=== PATIENT | female | born 1955 | race Caucasian/White ===

== ENCOUNTER 2016-09-18 17:02 | Inpatient (IN) | payer OTHER, MEDICAID ==
[~2016-09-18] VITALS: Ht 157.5 cm; Wt 59.0 kg
[~2016-09-18 17:02] MED LIST: BREX0.25 PO; BUPR300T55 PO; CAT.1 PO; DIGO125T79 PO; DULO60CA41 PO; GABA-531 PO; KLO.5 PO; LEVE500T13 PO; LEVO150T8 PO; LISI10TA5 PO; METH500T PO; OMEP20CA4 PO; QUET300T2 PO; TEMA30CA5 PO; TRAZ-126 PO; [UNRECOGNIZED DRUG - CODE] PO
[2016-09-18 18:29] VITALS: BP_SYST 143
[2016-09-18 19:12] VITALS: BP_SYST 118
[2016-09-18] MEDS ORDERED: METH-364 PO (19:14)
[2016-09-18] MEDS ORDERED: DULO60CA41 PO (19:14)
[2016-09-18] MEDS ORDERED: BREX0.25 PO (19:14)
[2016-09-18] MEDS ORDERED: QUET200T PO (19:14)
[2016-09-18] MEDS ORDERED: LEVE500T13 (19:14)
[2016-09-18] MEDS ORDERED: [UNRECOGNIZED DRUG - CODE] PO (19:14)
[2016-09-18] MEDS ORDERED: LEVO175T7 PO (19:14)
[2016-09-18] MEDS ORDERED: OMEP10SU PO (19:14)
[2016-09-18] MEDS ORDERED: TRAZ300T11 PO (19:14)
[2016-09-18] MEDS ORDERED: LISI10TA PO (19:14)
[2016-09-18] MEDS ORDERED: KLO1 PO (19:14)
[2016-09-18] MEDS ORDERED: CLON0.1T PO (19:14)
[2016-09-18] MEDS ORDERED: NEU100 PO (19:14)
[2016-09-18] MEDS ORDERED: WELSR100 PO (19:14)
[2016-09-18] MEDS ORDERED: TEMA30CA5 PO (19:14)
[2016-09-18] MEDS ORDERED: DIGO250T4 PO (19:14)
[2016-09-18] MEDS: KCL 20 mEq in 0.45% NS 1000 mL 1,000 ML IV SCH (19:15)
[2016-09-18] MEDS ORDERED: HYD10 PO (19:28)
[2016-09-18] MEDS ORDERED: FLOR.1 GT (19:28)
[2016-09-18] MEDS ORDERED: cloNIDine HCL 0.1 MG TABLET PO PRN (19:45)
[2016-09-18] MEDS ORDERED: MILK OF MAGNESIA 30 ML UDC PO PRN (19:45)
[2016-09-18] MEDS ORDERED: INSULIN REGULAR, HUMAN 100 UNITS/ML, 10 ML VIAL (novoLIN R) SUBCUT PRN (19:45)
[2016-09-18] MEDS ORDERED: ONDANSETRON HCL 4 MG/2 ML VIAL IVP PRN (20:00)
[2016-09-18] MEDS ORDERED: OXYCODONE/ACETAMINOPHEN 5-325 TABLET PO PRN (20:00)
[2016-09-18] MEDS ORDERED: THORAZINE (chlorproMAZINE) 100 MG TAB PO SCH (21:00)
[2016-09-18] MEDS ORDERED: METHOCARBAMOL 750 MG TABLET PO SCH (21:00)
[2016-09-18] MEDS ORDERED: GABAPENTIN 300 MG CAPSULE PO SCH (21:00)
[2016-09-18] MEDS: traZODone HCL 50 MG TABLET (DESYREL) PO SCH (21:00)
[2016-09-18] MEDS ORDERED: HYDROCORTISONE 10 MG TABLET (CORTEF) PO SCH ×2 (21:00)
[2016-09-18] MEDS: clonazePAM 0.5 MG TABLET PO SCH (21:00)
[2016-09-18] MEDS: levETIRAcetam 500 MG TABLET PO SCH (21:28)
[2016-09-18] MEDS: OMEPRAZOLE 20 MG CAPSULE.DR (PriLOSEC) PO SCH (21:29)
[2016-09-18] MEDS: DULoxetine HCL 30 MG CAPSULE.DR (CYMBALTA) PO SCH (21:30)
[2016-09-18] MEDS: QUEtiapine FUMARATE 100 MG TABLET PO SCH (21:31)
[2016-09-18] MEDS: metroNIDAZOLE 500 mg/NS 100 ML IV SCH (22:00)
[2016-09-18] MEDS: TEMAZEPAM 15 MG CAPSULE PO SCH (22:05)
[2016-09-18] MEDS ORDERED: METHOCARBAMOL 500 MG TABLET PO ONE (22:45)
[2016-09-18] MEDS ORDERED: THORAZINE (chlorproMAZINE) 100 MG TAB PO ONE (22:45)
[2016-09-19] VITALS: BP_SYST 106
[2016-09-19] MEDS: metroNIDAZOLE 500 mg/NS 100 ML IV SCH ×3 (06:00→21:45)
[2016-09-19] MEDS: LEVOTHYROXINE SODIUM 0.15 MG TABLET PO SCH (06:06)
[2016-09-19 06:12] VITALS: BP_SYST 115
[2016-09-19 08:14] VITALS: BP_SYST 158
[2016-09-19 08:18] LABS: BASOPHILS # (AUTO) 0.1 K/uL (0.0-0.2); BASOPHILS % (AUTO) 1.5 % (0.0-2.0); EOSINOPHILS # (AUTO) 0.2 K/uL (0.0-0.4); EOSINOPHILS % (AUTO) 2.1 % (0.0-4.0); HEMATOCRIT 31.7 % (36-48); HEMOGLOBIN 10.2 g/dL (12.0-16.0); LYMPHOCYTES # (AUTO) 1.8 K/uL (1.0-5.5); LYMPHOCYTES % (AUTO) 19.8 % (20.5-51.5); MEAN CORPUSCULAR HEMOGLOBIN 26 pg (27-31); MEAN CORPUSCULAR HGB CONC 32 % (32-36); MEAN CORPUSCULAR VOLUME 80 fL (79.0-98.0); MONOCYTES # (AUTO) 0.5 K/uL (0.0-1.0); MONOCYTES % (AUTO) 5.3 % (1.7-9.3); NEUTROPHILS # (AUTO) 6.4 K/uL (1.8-7.7); NEUTROPHILS % (AUTO) 71.3 % (40.0-70.0); PLATELET COUNT (AUTO) 192 K/uL (130-430); RED BLOOD CELL COUNT(AUTO) 3.98 MIL/uL (4.2-6.2); RED CELL DISTRIBUTION WIDTH 16.4 % (9.0-15.0)
[2016-09-19] MEDS: KCL 20 mEq in 0.45% NS 1000 mL 1,000 ML IV SCH ×2 (08:35→21:45)
[2016-09-19 08:36] LABS: PROTHROMBIN TIME 10.8 SECS (9.5-12.5)
[2016-09-19 08:40] LABS: ALBUMIN 2.4 g/dL (3.4-4.8); CALCIUM 8.6 mg/dL (8.4-11.0); CREATININE 0.63 mg/dL (0.55-1.30); POTASSIUM 3.3 mmol/L (3.5-5.1); TOTAL BILIRUBIN 0.3 mg/dL (0.0-1.0); TOTAL PROTEIN, SERUM 5.5 g/dL (6.4-8.3)
[2016-09-19] MEDS: OMEPRAZOLE 20 MG CAPSULE.DR (PriLOSEC) PO SCH ×2 (08:47→21:38)
[2016-09-19] MEDS: levETIRAcetam 500 MG TABLET PO SCH ×2 (08:47→21:38)
[2016-09-19] MEDS: DULoxetine HCL 30 MG CAPSULE.DR (CYMBALTA) PO SCH ×2 (08:48→21:39)
[2016-09-19] MEDS: clonazePAM 0.5 MG TABLET PO SCH ×3 (08:48→21:00)
[2016-09-19] MEDS: METHOCARBAMOL 500 MG TABLET PO SCH ×2 (08:49→21:00)
[2016-09-19] MEDS: buPROPion HCL 150 MG XL TAB PO SCH (08:50)
[2016-09-19] MEDS: LISINOPRIL 10 MG TABLET (PRINIVIL) PO SCH (08:50)
[2016-09-19] MEDS: DIGOXIN 0.125 MG TABLET PO SCH (08:51)
[2016-09-19] MEDS: GABAPENTIN 100 MG CAPSULE PO SCH ×3 (09:44→21:38)
[2016-09-19] MEDS ORDERED: HYDROCORTISONE 10 MG TABLET (CORTEF) PO SCH (10:00)
[2016-09-19 12:00] VITALS: BP_SYST 123
[2016-09-19 13:00] VITALS: BP_SYST 121
[2016-09-19 19:10] VITALS: BP_SYST 119
[2016-09-19] MEDS ORDERED: MENTHOL/ZINC OXIDE 113 GM OINT. TP PRN (19:15)
[2016-09-19 20:52] LABS: INR 0.9 (0.8-1.2); PROTHROMBIN TIME 10.3 SECS (9.5-12.5)
[2016-09-19] MEDS: MENTHOL/ZINC OXIDE 113 GM OINT. TP SCH (21:00)
[2016-09-19] MEDS: traZODone HCL 50 MG TABLET (DESYREL) PO SCH (21:00)
[2016-09-19] MEDS: THORAZINE (chlorproMAZINE) 25 MG TAB PO SCH (21:37)
[2016-09-19] MEDS: QUEtiapine FUMARATE 100 MG TABLET PO SCH (21:38)
[2016-09-19] MEDS: TEMAZEPAM 15 MG CAPSULE PO SCH (21:40)
[2016-09-20 00:26] VITALS: BP_SYST 140
[2016-09-20] MEDS: metroNIDAZOLE 500 mg/NS 100 ML IV SCH ×3 (06:00→21:15)
[2016-09-20] MEDS: LEVOTHYROXINE SODIUM 0.15 MG TABLET PO SCH (06:08)
[2016-09-20 07:48] LABS: BASOPHILS % (AUTO) 0.3 % (0.0-2.0); EOSINOPHILS # (AUTO) 0.2 K/uL (0.0-0.4); HEMOGLOBIN 9.6 g/dL (12.0-16.0); LYMPHOCYTES # (AUTO) 1.8 K/uL (1.0-5.5); LYMPHOCYTES % (AUTO) 20.8 % (20.5-51.5); MEAN CORPUSCULAR HEMOGLOBIN 25 pg (27-31); MEAN CORPUSCULAR HGB CONC 31 % (32-36); MEAN CORPUSCULAR VOLUME 80 fL (79.0-98.0); MONOCYTES # (AUTO) 0.4 K/uL (0.0-1.0); MONOCYTES % (AUTO) 4.8 % (1.7-9.3); NEUTROPHILS # (AUTO) 6.3 K/uL (1.8-7.7); NEUTROPHILS % (AUTO) 72.1 % (40.0-70.0); PLATELET COUNT (AUTO) 220 K/uL (130-430); RED BLOOD CELL COUNT(AUTO) 3.85 MIL/uL (4.2-6.2); RED CELL DISTRIBUTION WIDTH 16.8 % (9.0-15.0); WHITE BLOOD COUNT (AUTO) 8.7 K/uL (4.8-10.8)
[2016-09-20 07:56] LABS: CALCIUM 8.4 mg/dL (8.4-11.0); CREATININE 0.69 mg/dL (0.55-1.30); POTASSIUM 3.5 mmol/L (3.5-5.1)
[2016-09-20 08:02] VITALS: BP_SYST 122
[2016-09-20] MEDS: DULoxetine HCL 30 MG CAPSULE.DR (CYMBALTA) PO SCH ×2 (08:33→21:16)
[2016-09-20] MEDS: levETIRAcetam 500 MG TABLET PO SCH ×2 (08:33→21:15)
[2016-09-20] MEDS: GABAPENTIN 100 MG CAPSULE PO SCH ×3 (08:33→21:16)
[2016-09-20] MEDS: LISINOPRIL 10 MG TABLET (PRINIVIL) PO SCH (08:34)
[2016-09-20] MEDS: OMEPRAZOLE 20 MG CAPSULE.DR (PriLOSEC) PO SCH ×2 (08:34→21:17)
[2016-09-20] MEDS: METHOCARBAMOL 500 MG TABLET PO SCH ×2 (08:35→21:17)
[2016-09-20] MEDS: buPROPion HCL 150 MG XL TAB PO SCH (08:35)
[2016-09-20] MEDS: clonazePAM 0.5 MG TABLET PO SCH ×3 (08:35→21:16)
[2016-09-20] MEDS: DIGOXIN 0.125 MG TABLET PO SCH (08:36)
[2016-09-20] MEDS: MENTHOL/ZINC OXIDE 113 GM OINT. TP SCH ×4 (09:00→21:19)
[2016-09-20 11:27] VITALS: BP_SYST 102
[2016-09-20] MEDS: KCL 20 mEq in 0.45% NS 1000 mL 1,000 ML IV SCH (15:31)
[2016-09-20 16:01] VITALS: BP_SYST 123
[2016-09-20 20:00] VITALS: BP_SYST 119
[2016-09-20] MEDS: traZODone HCL 50 MG TABLET (DESYREL) PO SCH (21:16)
[2016-09-20] MEDS: THORAZINE (chlorproMAZINE) 25 MG TAB PO SCH (21:16)
[2016-09-20] MEDS: TEMAZEPAM 15 MG CAPSULE PO SCH (21:17)
[2016-09-20] MEDS: QUEtiapine FUMARATE 100 MG TABLET PO SCH (21:17)
[2016-09-20 23:42] VITALS: BP_SYST 94
[2016-09-21 03:41] VITALS: BP_SYST 121
[2016-09-21] MEDS: metroNIDAZOLE 500 mg/NS 100 ML IV SCH ×2 (05:58→16:49)
[2016-09-21] MEDS: LEVOTHYROXINE SODIUM 0.15 MG TABLET PO SCH (06:06)
[2016-09-21] MEDS: MENTHOL/ZINC OXIDE 113 GM OINT. TP SCH ×3 (09:00→17:52)
[2016-09-21] MEDS: buPROPion HCL 150 MG XL TAB PO SCH (09:00)
[2016-09-21] MEDS: levETIRAcetam 500 MG TABLET PO SCH (10:30)
[2016-09-21] MEDS: clonazePAM 0.5 MG TABLET PO SCH ×2 (10:30→16:49)
[2016-09-21] MEDS: DIGOXIN 0.125 MG TABLET PO SCH (10:31)
[2016-09-21] MEDS: DULoxetine HCL 30 MG CAPSULE.DR (CYMBALTA) PO SCH (10:31)
[2016-09-21] MEDS: OMEPRAZOLE 20 MG CAPSULE.DR (PriLOSEC) PO SCH (10:32)
[2016-09-21] MEDS: LISINOPRIL 10 MG TABLET (PRINIVIL) PO SCH (10:33)
[2016-09-21] MEDS: METHOCARBAMOL 500 MG TABLET PO SCH (10:41)
[2016-09-21] MEDS: GABAPENTIN 100 MG CAPSULE PO SCH ×2 (10:41→16:50)
[2016-09-21] MEDS: KCL 20 mEq in 0.45% NS 1000 mL 1,000 ML IV SCH ×2 (10:42→13:55)
[2016-09-21 12:26] VITALS: BP_SYST 94
[2016-09-21 16:47] VITALS: BP_SYST 118
[2016-09-21 19:30] VITALS: BP_SYST 108
[2016-09-21 20:57] VITALS: BP_SYST 108
[2016-09-22] MEDS ORDERED: BALSAM PERU/CASTOR OIL 60 GM OINT...G. TP SCH (09:00)
== END 2016-09-21 22:20 | DRG 391 ==
LOC: SMU 17:02
PROVIDERS: ADMIT Family Medicine; ATTEND Family Medicine
PROC: 02HV33Z Insertion of Infusion Device into Superior Vena Cava, Percutaneous Approach (ICD-10-PCS; principal; 2016-09-20)
PROC: B548ZZA Ultrasonography of Superior Vena Cava, Guidance (ICD-10-PCS; 2016-09-20)
DX: K52.9 Noninfective gastroenteritis and colitis, unspecified (principal); E43 Unspecified severe protein-calorie malnutrition; E27.1 Primary adrenocortical insufficiency; I10 Essential (primary) hypertension; E11.9 Type 2 diabetes mellitus without complications; D64.9 Anemia, unspecified; E03.9 Hypothyroidism, unspecified; R32 Unspecified urinary incontinence; Z96.653 Presence of artificial knee joint, bilateral; F17.200 Nicotine dependence, unspecified, uncomplicated; Z98.84 Bariatric surgery status; Z90.13 Acquired absence of bilateral breasts and nipples; Z88.0 Allergy status to penicillin; Z88.2 Allergy status to sulfonamides; Z88.8 Allergy status to other drugs, medicaments and biological substances
CPT/HCPCS: 36415; 71010; 76700-TC; 80048; 80053; 82962; 85025; 85610-TC; 85730-TC; 87081; C1751; C1769; J1815; J2405; J3480; J3490; Q0161

== ENCOUNTER 2017-02-21 12:03 | Inpatient (IN) | payer OTHER, MEDICAID ==
[~2017-02-21] VITALS: Ht 160 cm; Wt 53.5 kg
[~2017-02-21 12:03] MED LIST changes: -BREX0.25 PO; +GABA-529 PO; -GABA-531 PO; +HYD10 PO
--- NOTE | 2017-02-21 13:20 | NUR ---
ADMISSION: The patient, SAY GIRON, 61 y/o, F admitted by CANDIS SURESH MD, was given written information regarding hospital policies, unit procedures and contact persons. Valuables were checked and Belongings List documented. Call light within reach.
--- NOTE | 2017-02-21 13:21 | NUR ---
PT REFUSES PADDING ON SIDE RAILS FOR SEIZURE PRECAUTIONS STATES PADDED SIDE RAILS MAKE HER FEEL CLAUSTERPHOBIC AND SHE HAS NOT HAD A SEIZURE IN A LONG TIME. PROVIDED PT EDUCATION REGARDING SEIZURE PRECAUTIONS AND SAFETY MEASURES, BUT PT EXPRESSED DESIRE TO HAVE PADS REMOVED\.
[2017-02-21 13:54] VITALS: BP_SYST 136
--- NOTE | 2017-02-21 14:06 | NUR ---
Dr. Chapman Paged For admit orders. Pt is lethargic and having a difficult time staying awake. VS are stable, BG is 91, patient does not currently have her list of home medications, but states she will have it tomorrow. Addendum: 02/21/17 at 1413 by Lizeth Marshall RN s/w Dr. Chapman and admission orders received. Per Dr. Chapman, call his office to have them fax list of patients medications to us, . If unable to start IV, order Midline or PICC line.
[2017-02-21] MEDS ORDERED: KCL 20 mEq in D5/0.45NS 1000mL 1,000 ML IV SCH (14:30)
[2017-02-21 15:01] LABS: BASOPHILS # (AUTO) 0.1 K/uL (0.0-0.2); BASOPHILS % (AUTO) 1.4 % (0.0-2.0); EOSINOPHILS # (AUTO) 0.1 K/uL (0.0-0.4); EOSINOPHILS % (AUTO) 1.6 % (0.0-4.0); HEMATOCRIT 32.6 % (36-48); HEMOGLOBIN 10.1 g/dL (12.0-16.0); LYMPHOCYTES # (AUTO) 1.7 K/uL (1.0-5.5); LYMPHOCYTES % (AUTO) 18.6 % (20.5-51.5); MEAN CORPUSCULAR HEMOGLOBIN 23 pg (27-31); MEAN CORPUSCULAR HGB CONC 31 % (32-36); MEAN CORPUSCULAR VOLUME 74 fL (79.0-98.0); MONOCYTES # (AUTO) 0.7 K/uL (0.0-1.0); MONOCYTES % (AUTO) 7.9 % (1.7-9.3); NEUTROPHILS # (AUTO) 6.6 K/uL (1.8-7.7); NEUTROPHILS % (AUTO) 70.5 % (40.0-70.0); PLATELET COUNT (AUTO) 149 K/uL (130-430); RED CELL DISTRIBUTION WIDTH 18.3 % (9.0-15.0); WHITE BLOOD COUNT (AUTO) 9.2 K/uL (4.8-10.8)
[2017-02-21 15:32] LABS: CALCIUM 9.3 mg/dL (8.4-11.0); CREATININE 0.63 mg/dL (0.55-1.30); POTASSIUM 4.1 mmol/L (3.5-5.1)
[2017-02-21 15:38] LABS: PROTHROMBIN TIME 10.4 SECS (9.5-12.5)
--- NOTE | 2017-02-21 15:40 | NUR ---
ROUNDS / PICC Line consent signed Pt resting in bed w/ no signs of distress noted. PICC Line Consent signed and Quality Eng notified of order for PICC Line. Safety measures in place, will continue to monitor pt.
[2017-02-21 17:10] VITALS: BP_SYST 124
[2017-02-21] MEDS ORDERED: ONDA4TAB5 PO (17:11)
[2017-02-21] MEDS ORDERED: ASCO500T20 PO (17:11)
[2017-02-21] MEDS ORDERED: MULT PO (17:11)
[2017-02-21] MEDS ORDERED: DOCU250C71 PO (17:11)
[2017-02-21] MEDS ORDERED: OXYC-130 PO (17:11)
[2017-02-21] MEDS ORDERED: HYDR20TA PO (17:11)
--- NOTE | 2017-02-21 18:00 | NUR ---
Closing Note Pt resting in bed w/ eyes closed, appears to be sleeping. No concerns noted, safety measures in place and call light w/ pt. S/W Dr. Chapman over the phone to let him know patient's home medication list has been updated and to inquire about BG Accuchecks, and he stated that he will reconcile and place orders for BG checks when he comes in the evening. Town Administrator noted PICC line nurse was called and should come this evening.
[2017-02-21 18:15] LABS: BILIRUBIN,URINE NEGATIVE (NEGATIVE); BLOOD, URINE NEGATIVE (NEGATIVE); CLARITY/URINE CLOUDY (CLEAR); COLOR,URINE YELLOW (YELLOW); GLUCOSE,URINE NEGATIVE (NEGATIVE); KETONES,URINE NEGATIVE (NEGATIVE); LEUKOCYTE ESTERASE ,URINE NEGATIVE (NEGATIVE); NITRITE, URINE NEGATIVE (NEGATIVE); PH,URINE 7.5 (5.0-8.0); PROTEIN URINE NEGATIVE (NEGATIVE)
[2017-02-21 18:24] LABS: BACTERIA,URINE None Seen /HPF (None Seen); RBC,URINE 0-3 /HPF (0-3); WBC,URINE 0-3 /HPF (0-3)
[2017-02-21 18:25] LABS: URINE AMORPHOUS PHOSPHATES 3+ /HPF (None Seen)
[2017-02-21] MEDS ORDERED: cloNIDine HCL 0.1 MG TABLET PO PRN (19:45)
[2017-02-21] MEDS ORDERED: INSULIN REGULAR, HUMAN 100 UNITS/ML, 10 ML VIAL (novoLIN R) SUBCUT PRN (20:00)
[2017-02-21] MEDS ORDERED: DULoxetine HCL 30 MG CAPSULE.DR (CYMBALTA) PO SCH (21:00)
[2017-02-21] MEDS ORDERED: VANCOMYCIN HCL 1,000 MG in NS 250 ML IV SCH (21:00)
[2017-02-21] MEDS: HYDROCORTISONE 10 MG TABLET (CORTEF) PO SCH (22:13)
[2017-02-21] MEDS: QUEtiapine FUMARATE 100 MG TABLET PO SCH (22:14)
[2017-02-21] MEDS: levETIRAcetam 500 MG TABLET PO SCH (22:16)
[2017-02-21] MEDS: traZODone HCL 50 MG TABLET (DESYREL) PO SCH (22:16)
[2017-02-21] MEDS: DOCUSATE SODIUM 100 MG CAPSULE PO SCH (22:17)
[2017-02-21] MEDS: TEMAZEPAM 15 MG CAPSULE PO SCH (22:17)
[2017-02-21] MEDS: MEGESTROL ACETATE 400 MG/10 ML UDC PO SCH (22:18)
[2017-02-21] MEDS: clonazePAM 0.5 MG TABLET PO SCH (22:18)
--- NOTE | 2017-02-21 23:24 | NUR ---
PICC line nurse unable to insert PICC. pt refused peripheral line insertion. dr. Rodriguezium aware and ordered to re-order PICC line insertion in AM, informed maid housekeeper.
[2017-02-22 00:52] VITALS: BP_SYST 137
[2017-02-22] MEDS: LEVOTHYROXINE SODIUM 0.15 MG TABLET PO SCH (06:23)
[2017-02-22 07:20] LABS: BASOPHILS % (AUTO) 0.6 % (0.0-2.0); EOSINOPHILS % (AUTO) 0.5 % (0.0-4.0); HEMATOCRIT 35.5 % (36-48); HEMOGLOBIN 10.9 g/dL (12.0-16.0); LYMPHOCYTES % (AUTO) 17.2 % (20.5-51.5); MEAN CORPUSCULAR HEMOGLOBIN 23 pg (27-31); MEAN CORPUSCULAR HGB CONC 31 % (32-36); MEAN CORPUSCULAR VOLUME 74 fL (79.0-98.0); MONOCYTES # (AUTO) 0.2 K/uL (0.0-1.0); MONOCYTES % (AUTO) 3.2 % (1.7-9.3); NEUTROPHILS # (AUTO) 4.9 K/uL (1.8-7.7); NEUTROPHILS % (AUTO) 78.5 % (40.0-70.0); PLATELET COUNT (AUTO) 185 K/uL (130-430); RED CELL DISTRIBUTION WIDTH 19.6 % (9.0-15.0); WHITE BLOOD COUNT (AUTO) 6.1 K/uL (4.8-10.8)
[2017-02-22 07:27] LABS: CALCIUM 9.6 mg/dL (8.4-11.0); CREATININE 0.48 mg/dL (0.55-1.30); DIGOXIN 0.7 ng/mL (0.80-2.00); POTASSIUM 4.5 mmol/L (3.5-5.1)
--- NOTE | 2017-02-22 08:00 | NUR ---
OPENING NOTE PT RESTING IN BED, A/O X4, BREATHING IS EVEN AND UNLABORED ON ROOM AIR, NO SIGNS OF DISTRESS NOTED AT THIS TIME. PT C/O NAUSEA AND STATED THAT SHE VOMITED 1X THIS MORNING. PT DOES NOT HAVE IV ACCESS AND PICC LINE ATTEMPT YESTERDAY EVENING WAS UNSUCCESSFUL. ANOTHER PICC LINE NURSE TO COME THIS MORNING FOR A SECOND ATTEMPT. BED IS LOCKED IN LOWEST POSITION, 2 SIDE RAILS UP, CALL LIGHT W/ PT AND PT INSTRUCTED TO CALL IF ASSISTANCE NEEDED.
[2017-02-22 08:30] LABS: TOTAL IRON BIND. CAPACITY 297 ug/dL (250-450)
[2017-02-22] MEDS: DOCUSATE SODIUM 100 MG CAPSULE PO SCH ×3 (09:00→20:33)
[2017-02-22] MEDS: KCL 20 mEq in 0.45% NS 1000 mL 1,000 ML IV SCH ×2 (09:20→12:43)
[2017-02-22] MEDS: clonazePAM 0.5 MG TABLET PO SCH ×3 (09:21→20:31)
[2017-02-22] MEDS: levETIRAcetam 500 MG TABLET PO SCH ×2 (09:21→20:31)
[2017-02-22] MEDS: ASCORBIC ACID 500 MG TABLET PO SCH (09:22)
[2017-02-22] MEDS: MULTIVITAMINS TAB 1 TABLET PO SCH (09:22)
[2017-02-22] MEDS: OMEPRAZOLE 20 MG CAPSULE.DR (PriLOSEC) PO SCH (09:22)
--- NOTE | 2017-02-22 09:22 | NUR ---
Nutrition Update Yazan Scale 18 noted. Pt admitted for intractable N/V/cellulitis of lower. Diet: regular BMI: 21 kg/m2 RD to follow per nutrition care standards.
[2017-02-22] MEDS: LISINOPRIL 10 MG TABLET (PRINIVIL) PO SCH (09:27)
[2017-02-22] MEDS: MEGESTROL ACETATE 400 MG/10 ML UDC PO SCH ×2 (09:28→20:33)
[2017-02-22] MEDS: HYDROCORTISONE 10 MG TABLET (CORTEF) PO SCH ×2 (09:28→20:31)
[2017-02-22] MEDS: DIGOXIN 0.125 MG TABLET PO SCH (09:28)
[2017-02-22] MEDS: ENOXAPARIN SODIUM 40 MG/0.4 ML SYRINGE SUBCUT SCH (09:29)
[2017-02-22] MEDS: buPROPion HCL 150 MG XL TAB PO SCH (09:29)
--- NOTE | 2017-02-22 09:48 | NUR ---
Dr. Chapman Call for Zofran S/W Dr. Chapman to let him know pt has N/V and has vomited 3x this morning. Per Dr. Chapman, we will need to wait untilPICC line placement for Zofran order.
--- NOTE | 2017-02-22 10:00 | NUR ---
ROUNDS PT C/O NAUSEA AND VOMITING X2. CALLED DR. SURESH FOR F/U AND ORDERS WILL BE PLACED FOR ZOFRAN UPON PICC LINE INSERTION. PT ASKING TO GO OUTSIDE TO SMOKE, WAIVER SIGNED AND GRANITE CHIP TERRAZZO FINISHER TO ASSIST PATIENT OUTSIDE TO SMOKE.
--- NOTE | 2017-02-22 11:40 | NUR ---
MIDLINE ACCESS CONFIRMED BY PICC NURSE D/T UNABLE TO ADVANCE LINE FOR PICC. CHEST XRAY CANCELLED. PT TOLERATED PROCEDURE WELL, IS IN STABLE CONDITION AND DOES NOT CURRENTLY HAVE ANY CONCERNS. SAFETY MEASURES IN PLACE, CALL LIGHT W/ PT AND WILL CONTINUE TO MONITOR PT.
--- NOTE | 2017-02-22 14:25 | NUR ---
DR. SURESH ROUNDS INFORMED DR. SURESH OF MRSA + NARES RESULT AND FOLLOWED UP REGARDING PRN ORDER FOR ZOFRAN. DR. SURESH S/W PT AND WILL ORDER GI CONSULT.
--- NOTE | 2017-02-22 15:13 | NUR ---
CONSULTATION PAGED REASON FOR CONSULTATION:INTRACTABLE NAUSEA AND VOMITING WAS CONSULT CALLED?:Y PERSON WHO WAS NOTIFIED:CORINNE CONSULTING PHYSICIAN:SOLIS ROBBINS (MARYJANE AQUINO PERCUSSION INSTRUMENT REPAIRER) LEASE ADMINISTRATION ANALYST SPECIALTY:GI LEASE ADMINISTRATION ANALYST PHONE NUMBER:[phone] REQUESTING PHYSICIAN:CANDIS SILVERIO
[2017-02-22] MEDS ORDERED: ONDANSETRON HCL 4 MG/2 ML VIAL IVP PRN (15:15)
[2017-02-22] MEDS: VANCOMYCIN HCL 1,000 MG in NS 250 ML IV SCH (16:01)
--- NOTE | 2017-02-22 16:59 | NUR ---
ROUNDS AND BLOOD GLUCOSE PT RESTING IN BED W/ NO SIGNS OF DISTRESS NOTED AT THIS TIME. PT STATES SHE HAS NOT HAD ANY FURTHER EPISODES OF VOMITING. ACCUCHECK COMPLETED W/ BLOOD GLUCOSE RESULT OF 109, NO INSULIN COVERAGE REQUIRED PER SS. SAFETY MEASURES IN PLACE, CALL LIGHT W/ PT AND NO CONCERNS NOTED AT THIS TIME.
[2017-02-22 17:06] VITALS: BP_SYST 173
--- NOTE | 2017-02-22 19:00 | NUR ---
CLOSING NOTE PT RESTING IN BED W/ NO SIGNS OF DISTRESS NOTED. MIDLINE SITE IS CLEAN DRY AND INTACT, IVF INFUSING WELL. INSIDE SALES ADMINISTRATOR NOTIFIED THAT PT'S BP WAS 173/80, AND VITALS TAKEN AFTER PT WENT OUTSIDE TO SMOKE A CIGARETTE. RECHECKED BLOOD PRESSURE AND PT'S BLOOD PRESSURE READING WAS 124/74. SAFETY MEASURES IN PLACE, CALL LIGHT W/ PT AND WILL ENDORSE TO NOC SHIFT RN.
--- NOTE | 2017-02-22 19:30 | NUR ---
INITIAL NOTES RECEIVED REPORT FROM OFFGOING NURSE AT THE BEDSIDE. PATIENT IS AWAKE AND ALERT, RESTING COMFORTABLY IN BED. NO SOB NOTED, NO S/S OF ACUTE DISTRESS. PATIENT IS REQUESTING FOR A SMOKE BREAK, INFORMED THAT PATIENT THAT DURING CHANGE OF SHIFT, BRINGING HER OUT TO SMOKE WILL BE DIFFICULT, BUT WILL CONTACT SOMEONE TO BRING HER OUT TO SMOKE. BED IS LOCKED, IN THE LOWEST POSITION, WITH BILATERAL UPPER SIDE RAILS UP FOR SAFETY. PATIENT REFUSES BED ALARM AT THIS TIME. WILL CONTINUE WITH PLAN OF CARE.
[2017-02-22 20:00] VITALS: BP_SYST 134
[2017-02-22] MEDS: QUEtiapine FUMARATE 100 MG TABLET PO SCH (20:32)
[2017-02-22] MEDS: TEMAZEPAM 15 MG CAPSULE PO SCH (20:33)
[2017-02-22] MEDS: traZODone HCL 50 MG TABLET (DESYREL) PO SCH (20:33)
[2017-02-22] MEDS: MUPIROCIN 2% TOPICAL OINTMENT 22 GM NS SCH (21:00)
--- NOTE | 2017-02-22 21:00 | NUR ---
PATIENT IS COMPLAINING THAT SHE HAS NOT GONE OUT FOR A SMOKE BREAK YET. PATIENT STATED THAT IF SHE DOES NOT GET A SMOKE BREAK, SHE WILL LEAVE THE FACILITY. LAVELL-LARY NOW TAKING PATIENT OUT FOR A SMOKE BREAK.
--- NOTE | 2017-02-23 | NUR ---
PATIENT IS ASLEEP, RESTING COMFORTABLY IN BED. BREATHING IS EVEN AND UNLABORED WITH VISIBLE RISE AND FALL OF THE CHEST SEEN. NO SOB NOTED, NO S/S OF ACUTE DISTRESS, NO SIGNS OF PAIN OR FACIAL GRIMACING. CALL LIGHT WITHIN REACH.
[2017-02-23 00:40] VITALS: BP_SYST 120
--- NOTE | 2017-02-23 02:03 | NUR ---
PATIENT IS ASLEEP, RESTING COMFORTABLY IN BED, BREATHING IS EVEN AND UNLABORED WITH VISIBLE RISE AND FALL OF THE CHEST SEEN. CALL LIGHT WITHIN REACH.
--- NOTE | 2017-02-23 04:05 | NUR ---
PATIENT IS FOUND IN THE ROOM SITTING ON THE CHAIR AND PULLING THE IV PULL BY USING THE IV TUBING. PATIENT ALSO CHANGED SELF OUT OF THE HOSPITAL GOWN AND INTO HER OWN PERSONAL CLOTHING. SEIZURE PADS FOUND ON THE FLOOR NEXT TO THE BED. WHEN ASKING THE PATIENT IF SHE WANTS TO PUT ON THE SEIZURE PADS, PATIENT REFUSED. EDUCATED PATIENT ON BENEFITS OF THE SEIZURE PADS; HOWEVER, PATIENT STATED THAT THE SEIZURE PADS MAKE HER FEEL CLAUSTROPHOBIC. PATIENT REQUESTING TO GO ON A SMOKE BREAK. LAVELL-LARY TO TAKE PATIENT OUT FOR A SMOKE.
--- NOTE | 2017-02-23 04:13 | NUR ---
PATIENT RETURNED FROM SMOKE BREAK.
[2017-02-23] MEDS: KCL 20 mEq in 0.45% NS 1000 mL 1,000 ML IV SCH ×2 (04:31→18:00)
--- NOTE | 2017-02-23 04:45 | NUR ---
PATIENT COMPLAINED THAT HER MIDLINE SITE IN THE LEFT UPPER ARM IS LEAKING. FLUID IS PINK TINGED AND COMING OUT OF THE DRESSING. ASSISTED PATIENT TO CHANGE THE MIDLINE DRESSING, APPLIED NEW BIOPATCH, AND APPLIED PRESSURE DRESSING TO THE SITE. ALSO CHANGED PATIENT'S GOWN AND LINEN THAT BECAME SOILED IN FLUIDS. PATIENT IS NOW CLEAN AND DRY. DRESSING IS CLEAN DRY AND INTACT. WILL MONITOR CLOSELY. Addendum: 02/23/17 at 0524 by Jo Ann Trejo RN CONTINUATION OF NOTES MIDLINE SITE ARM CIRCUMFERENCE AT 21CM. EXTERNAL CATHETER LENGTH AT 0CM.
--- NOTE | 2017-02-23 05:15 | NUR ---
PATIENT'S MIDLINE SITE IN LEFT UPPER ARM STILL LEAKING DESPITE DRESSING CHANGE AND APPLYING A PRESSURE DRESSING. POTASSIUM IS CURRENTLY 4.5, WHICH IS AN ACCEPTABLE RANGE. IV FLUIDS STOPPED TO PREVENT MORE LEAKAGE IN THE MIDLINE SITE. WILL NOTIFY MD IN THE TOOL DESIGN DRAFTSPERSON.
--- NOTE | 2017-02-23 05:18 | NUR ---
PATIENT IS SITTING UP IN THE BEDSIDE CHAIR. OFFERED TO ASSIST PATIENT BACK TO BED. PATIENT STATED "I'M GOOD, I'M JUST GOING TO REST HERE. YOU CAN TURN THE LIGHTS OFF THOUGH." CALL LIGHT PLACED WITHIN REACH, ENCOURAGED PATIENT TO CALL FOR ASSISTANCE IF NEEDED. PATIENT VERBALIZED UNDERSTANDING. LIGHTS TURNED OFF PER PATIENT REQUEST.
[2017-02-23] MEDS: LEVOTHYROXINE SODIUM 0.15 MG TABLET PO SCH (06:10)
--- NOTE | 2017-02-23 06:10 | NUR ---
BLOOD SUGAR CHECKED. PATIENT'S BLOOD SUGAR IS 133MG/DL. NO COVERAGE NEEDED. PATIENT IS STILL SITTING ON THE CHAIR AT THE SIDE OF THE BED. STATED THAT SHE IS "FINE WHERE I AM AT." CALL LIGHT WITHIN REACH, ENCOURAGED PATIENT TO CALL FOR ASSISTANCE IF NEEDED, ESPECIALLY WHEN GETTING UP OUT OF THE CHAIR.
--- NOTE | 2017-02-23 06:15 | NUR ---
PAGED DR SURESH. SPOKE TO EXCHANGE. TRANSFERRED DIRECTLY TO DR SURESH. MADE DR SURESH AWARE THAT THE MIDLINE SITE IS LEAKING AND THAT IV FLUIDS HAS BEEN HELD. DR SURESH STATED TO CALL THE PICCLINE NURSE TO COME AND CHECK IT. WILL CALL PICCLINE NURSE.
--- NOTE | 2017-02-23 06:38 | NUR ---
CLOSING NOTES PATIENT IS SITING UP IN THE CHAIR WITH HER EYES CLOTHES, BUT IS AWAKE AND ALERT. NO SOB, NO S/S OF ACUTE DISTRESS, NO COMPLAINTS OF PAIN. MIDLINE SITE STILL ENFORCED WITH DRESSING, SALINE LOCKED. AIR INTERCEPT CONTROLLER AWARE OF MD ORDER TO CALL PICCLINE NURSE TO CHECK THE MIDLINE SITE. WILL ENDORSE TO DAYSHIFT NURSE TO FOLLOW UP. FALL AND SAFETY PRECAUTIONS MAINTAINED. ALL NEEDS HAVE BEEN MET THROUGHOUT THE SHIFT. WILL ENDORSE CARE TO ONCOMING DAYSHIFT NURSE.
[2017-02-23 08:00] VITALS: BP_SYST 134
--- NOTE | 2017-02-23 08:00 | NUR ---
RN OPENING NOTE PT IS SITING UP IN A BEDSIDE CHAIR, A.O X 4 WITH NO COMPLAINT OF PAIN. LEFT ARM MIDLINE SITE STILL ENFORCED WITH DRESSING, EACH PORT FLUSHED WITH 10CC NS WITH NO LEAKING NOTED. PT DEMONSTRATED ABILITY TO AMBULATE WITHOUT ASSISTANCE, NO COMPLAINT OF DIZZINESS OR SOB. PT EDUCATED ON UNIT SAFETY AND DEMONSTRATED THE ABILITY TO USE THE CALL LIGHT.
[2017-02-23] MEDS ORDERED: DIATR MEGLU/DIATRIZ SOD 30 ML SOLUTION PO ONE (08:42)
[2017-02-23] MEDS: OMEPRAZOLE 20 MG CAPSULE.DR (PriLOSEC) PO SCH (09:00)
[2017-02-23] MEDS: MEGESTROL ACETATE 400 MG/10 ML UDC PO SCH ×2 (09:26→22:04)
[2017-02-23] MEDS: MULTIVITAMINS TAB 1 TABLET PO SCH (09:26)
[2017-02-23] MEDS: clonazePAM 0.5 MG TABLET PO SCH ×3 (09:26→22:04)
[2017-02-23] MEDS: levETIRAcetam 500 MG TABLET PO SCH ×2 (09:27→22:01)
[2017-02-23] MEDS: DIGOXIN 0.125 MG TABLET PO SCH (09:27)
[2017-02-23] MEDS: buPROPion HCL 150 MG XL TAB PO SCH (09:27)
[2017-02-23] MEDS: HYDROCORTISONE 10 MG TABLET (CORTEF) PO SCH ×2 (09:27→22:02)
[2017-02-23] MEDS: ASCORBIC ACID 500 MG TABLET PO SCH (09:27)
[2017-02-23] MEDS: DOCUSATE SODIUM 100 MG CAPSULE PO SCH ×2 (09:27→22:03)
[2017-02-23] MEDS: LISINOPRIL 10 MG TABLET (PRINIVIL) PO SCH (09:28)
[2017-02-23] MEDS: ENOXAPARIN SODIUM 40 MG/0.4 ML SYRINGE SUBCUT SCH (09:28)
--- NOTE | 2017-02-23 10:22 | NUR ---
TOOK PT TO SMOKING SECTION PT SIGNED PROPER FORM
--- NOTE | 2017-02-23 11:00 | NUR ---
RN ROUNDS PT IS SITTING UP IN A CHAIR AT BEDSIDE, NO COMPLAINT OF DISCOMFORT
[2017-02-23 11:47] VITALS: BP_SYST 146
[2017-02-23] MEDS: MUPIROCIN 2% TOPICAL OINTMENT 22 GM NS SCH ×2 (12:00→22:25)
--- NOTE | 2017-02-23 13:31 | NUR ---
Dietitian Recommendations *Recommend Soft Fleming CCHO diet w/ Boost Glucose Control TID. Oral supplement will provide additional 750 kcal and 42 gm protein daily. Please see Nutrition Assessment for details.
--- NOTE | 2017-02-23 13:40 | NUR ---
TOOK PT TO SMOKING SECTION PT SIGNED PROPER FORM
--- NOTE | 2017-02-23 15:28 | NUR ---
RN ROUNDS PT SITTING UP IN A BEDSIDE CHAIR. ASSISTED PT TO BATHROOM, PT DEMONSTRATED ABILITY TO AMBULATE WITH HER CANE WITHOUT FURTHER ASSISTANCE.
[2017-02-23] MEDS: VANCOMYCIN HCL 1,000 MG in NS 250 ML IV SCH (15:31)
[2017-02-23 15:50] VITALS: BP_SYST 159
--- NOTE | 2017-02-23 19:00 | NUR ---
SHIFT ENDORSEMENT PT SITTING AT THE SIDE OF BED COMPLAINING THAT HER MIDLINE IS LEAKING AGAIN. MIDLINE DRESSING WAS DAMP, PM NURSE STATED SHE WILL FOLLOW UP AND DISCONTINUE FLUIDS IF NEEDED. REPORT ENDORSED TO NOC SHIFT RN AT BEDSIDE.
[2017-02-23 20:00] VITALS: BP_SYST 148
--- NOTE | 2017-02-23 20:15 | NUR ---
INITIAL NOTES RECEIVED PATIENT ON BED AWAKE AND ALERT BREATHING EVEN AND UNLABORED, MAINTAINED ON POSITION OF COMFORT, MAINTAINED SAFETY PRECAUTION. PATIENT PULLED PUT HER PICC LINE WHEN RN MADE THE ROUNDS AND WAS MAD THAT THE PICC WAS LEAKING ALL DAY AND SHE IS ALREADY UNCOMFORTABLE THAT IS WHY SHE WANTED TO REMOVE IT RIGHT AWAY. STATED BY THE PATIENT. EXPLAINED THE PLAN OF CARE AND VERBALIZED UNDERSTANDING WILL CONTINUE TO MONITOR, CALL LIGHT WITHIN REACH. PAGED TO LET HIM KNOW THAT THE PICC LINE WAS REMOVED. Addendum: 02/24/17 at 0357 by Chaparro Harris RN ENCOURAGED PATIENT TO USE PADDED SIDE RAILS FOR SAFETY BECAUSE SHE HAD HISTORY OF SEIZURES. PATIENT STATED THAT SHE DOES NOT NEED IT AND DOES NOT WANT IT. EXPLAINED THE RISKS AND BENEFITS AND VERBALIZED UNDERSTANDING.
[2017-02-23] MEDS: QUEtiapine FUMARATE 100 MG TABLET PO SCH (22:01)
[2017-02-23] MEDS: traZODone HCL 50 MG TABLET (DESYREL) PO SCH (22:02)
[2017-02-23] MEDS: TEMAZEPAM 15 MG CAPSULE PO SCH (22:03)
--- NOTE | 2017-02-23 22:05 | NUR ---
MD CALLED GAVE REPORT ABOUT THE PICC BEING PULLED OUT BY THE PATIENT. MD CALLED TO [facility] FOR ANOTHER PICC LINE FOR THE PATIENT IN THE MORNING. HOLD ANY IV MEDICATION THAT SHE HAS. WILL CARRY OUT ORDER AND NOTED.
--- NOTE | 2017-02-23 22:28 | NUR ---
BS PATIENT WITH A BS OF 61 WILL GIVE ORANGE JUICE AND SNACK FOR THE PATIENT
--- NOTE | 2017-02-23 22:36 | NUR ---
NUCLEAR MEDICINE CALLED NM, VIA DENIS, AND INFORMED THE RN THAT THE PATIENT WILL BE RESCHEDULED ON 02/25/17 NOTED AND WILL HOLD THE NPO STATUS OF THE PATIENT CHARGE NURSE AWARE
--- NOTE | 2017-02-23 23:25 | NUR ---
BS CHECKED PATIENT HAS A BS OF 124, WILL CONTINUE TO MONITOR PATIENT.
--- NOTE | 2017-02-24 | NUR ---
RN ROUNDS PATIENT ON BED SLEEPING AND RESTING BREATHING EVEN AND UNLABORED, PATIENT WITH STABLE BLOOD SUGAR AFTER GIVING A SNACK AND ORANGE JUICE. PATIENT STILL REFUSES THE PADDED SIDE RAILS TO BE PLACED ON THE BEDSIDE. NO PAIN NOTED, WILL CONTINUE TO MONITOR, CALL LIGHT WITHIN REACH.
[2017-02-24 00:25] VITALS: BP_SYST 105
--- NOTE | 2017-02-24 02:00 | NUR ---
RN ROUNDS PATIENT SLEEPING ON BED NO SOB NOTED WILL CONTINUE TO MONITOR, CALL LIGHT WITHIN REACH. MONITORED FOR SEIZURE ACTIVITY.
[2017-02-24 02:12] LABS: PROTHROMBIN TIME 10.4 SECS (9.5-12.5)
--- NOTE | 2017-02-24 03:55 | NUR ---
RN ROUNDS PATIENT SLEEPING ON BED NO SOB NOTED WILL CONTINUE TO MONITOR, CALL LIGHT WITHIN REACH. MONITORED FOR SEIZURE ACTIVITY. MAINTAINED SAFETY PRECAUTIONS.
[2017-02-24] MEDS: LEVOTHYROXINE SODIUM 0.15 MG TABLET PO SCH (06:21)
--- NOTE | 2017-02-24 06:36 | NUR ---
CLOSING NOTES PATIENT ON BED STILL SLEEPING AND RESTING, AND WAS ABLE TO TAKE THE MORNING MEDICATION. BREATHING EVEN AND UNLABORED, MAINTAINED ON POSITION OF COMFORT, MAINTAINED SAFETY PRECAUTION. EXPLAINED THAT THE PATIENT NEEDED THE PADDED SIDE RAILS FOR SAFETY IN CASE OF ANY SEIZURE ACTIVITY, PATIENT STILL SAYS NO, AFTER EXPLAINING THE RISKS AND BENEFITS. ALL DUE MEDICATION GIVEN, WILL GIVE REPORT TO AM NURSE TO HOLD ANY IV MEDICATION BECAUSE THE PATIENT WILL HAVE A PICC LINE PROCEDURE FOR THE DAY. CALL LIGHT WITHIN REACH WILL CONTINUE TO MONITOR.
[2017-02-24] MEDS: KCL 20 mEq in 0.45% NS 1000 mL 1,000 ML IV SCH (07:20)
[2017-02-24 08:10] LABS: ALBUMIN 2.5 g/dL (3.4-4.8); BILIRUBIN,DIRECT 0.1 mg/dL (0.0-0.3); TOTAL BILIRUBIN 0.3 mg/dL (0.0-1.0)
[2017-02-24 08:15] VITALS: BP_SYST 132
--- NOTE | 2017-02-24 08:15 | NUR ---
RN OPENING NOTE PT IS SITING UP IN A BEDSIDE CHAIR, A.O X 3 WITH NO COMPLAINT OF PAIN. PT REMOVED LEFT ARM MIDLINE LAST NIGHT, PICC LINE ORDERED FOR TODAY. PT EDUCATED ON UNIT SAFETY AND DEMONSTRATED THE ABILITY TO USE THE CALL LIGHT.
[2017-02-24] MEDS: ASCORBIC ACID 500 MG TABLET PO SCH (09:42)
[2017-02-24] MEDS: MUPIROCIN 2% TOPICAL OINTMENT 22 GM NS SCH ×2 (09:42→20:28)
[2017-02-24] MEDS: DIGOXIN 0.125 MG TABLET PO SCH (09:43)
[2017-02-24] MEDS: OMEPRAZOLE 20 MG CAPSULE.DR (PriLOSEC) PO SCH (09:43)
[2017-02-24] MEDS: levETIRAcetam 500 MG TABLET PO SCH ×2 (09:43→20:30)
[2017-02-24] MEDS: DOCUSATE SODIUM 100 MG CAPSULE PO SCH ×2 (09:43→20:31)
[2017-02-24] MEDS: HYDROCORTISONE 10 MG TABLET (CORTEF) PO SCH ×2 (09:43→20:30)
[2017-02-24] MEDS: clonazePAM 0.5 MG TABLET PO SCH ×3 (09:44→20:30)
[2017-02-24] MEDS: MEGESTROL ACETATE 400 MG/10 ML UDC PO SCH ×2 (09:44→20:31)
[2017-02-24] MEDS: MULTIVITAMINS TAB 1 TABLET PO SCH (09:44)
[2017-02-24] MEDS: LISINOPRIL 10 MG TABLET (PRINIVIL) PO SCH (09:44)
[2017-02-24] MEDS: ENOXAPARIN SODIUM 40 MG/0.4 ML SYRINGE SUBCUT SCH (09:45)
[2017-02-24] MEDS: buPROPion HCL 150 MG XL TAB PO SCH (09:47)
--- NOTE | 2017-02-24 11:07 | NUR ---
PT WANDERING IN CARROLL/UNCOOPERATIVE REMINDED PT OF ISOLATION PRECAUTIONS AND ASSISTED HER BACK TO HER ROOM. PT IS AGITATED AND UNCOOPERATIVE.
--- NOTE | 2017-02-24 12:00 | NUR ---
RN NOTES PT SITTING UP IN A CHAIR AT BEDSIDE. PT STATED SHE IS FRUSTRATED BUT WHEN ASKED WHAT IS FRUSTRATING HER AND WHAT CAN BE DONE TO ASSIST, SHE SHOOK HER HEAD AT STATED "I DON'T KNOW WHY YOU ARE ASKING ME SO MANY QUESTIONS".
[2017-02-24 12:52] VITALS: BP_SYST 133
[2017-02-24] MEDS: VANCOMYCIN HCL 1,000 MG in NS 250 ML IV SCH (15:00)
--- NOTE | 2017-02-24 15:00 | NUR ---
VANCO IV NOT ADMINISTERED - IV SITE NOT AVAILABLE
--- NOTE | 2017-02-24 16:52 | NUR ---
PICC NURSE SW WITH DAIANA PICC NURSE RE ORDER FOR PICC LINE INSERTION. PER DAIANA, PATIENTS VEINS ARE TOO SMALL THAT TWO PICC LINE NURSES INCLUDING HIMSELF ALREADY TRIED AND UNABLE TO INSERT PICC. DR SURESH WAS CALLED TO INFORM ABOUT ABOVE.
[2017-02-24 16:53] VITALS: BP_SYST 115
--- NOTE | 2017-02-24 17:13 | NUR ---
CONSULT SURGERY CENTRAL LINE PLACEMENT PRABHA CADENA [phone] S/W ALEKS EXCHANGE @ [id number]
--- NOTE | 2017-02-24 18:00 | NUR ---
CONSENT TO READ: CENTRAL LINE INSERTION AT BEDSIDE ON 02/25/17 DR. SIMMONS CONFIRMED HE PLANS TO INSERT A CENTRAL LINE AT BEDSIDE TOMORROW. HE IS AWARE OF EGD SCHEDULED ON 02/25/17 WELL.
--- NOTE | 2017-02-24 19:00 | NUR ---
SHIFT ENDORSEMENT PT STABLE ON ROOM AIR. EDUCATION PROVIDED ABOUT TOMORROW'S SCHEDULED EGD AND CENTRAL LINE INSERTION. REPORT ENDORSED TO PM NURSE AT BEDSIDE
--- NOTE | 2017-02-24 19:00 | NUR ---
DIET CHANGED TO NPO R/T 02/25 EGD
[2017-02-24 20:00] VITALS: BP_SYST 138
--- NOTE | 2017-02-24 20:00 | NUR ---
INITIAL NOTES RECEIVED PATIENT ON BED BREATHING EVEN AND UNLABORED, MAINTAINED ON POSITION OF COMFORT MAINTAINED SAFETY PRECAUTION. ENCOURAGED THE PATIENT TO USE PADDED SIDE RAILS FOR SAFETY AND STATED, "I DON'T WANT IT, TAKE IT AWAY," EXPLAINED THE RISKS AND BENEFITS AND VERBALIZED UNDERSTANDING. ENCOURAGED BREATHING TECHNIQUES AND RELAXATION. EXPLAINED THE PLAN OF CARE AND VERBALIZED UNDERSTANDING. CALL LIGHT WITHIN REACH WILL CONTINUE TO MONITOR.
[2017-02-24] MEDS: TEMAZEPAM 15 MG CAPSULE PO SCH (20:29)
[2017-02-24] MEDS: QUEtiapine FUMARATE 100 MG TABLET PO SCH (20:31)
[2017-02-24] MEDS: traZODone HCL 50 MG TABLET (DESYREL) PO SCH (20:43)
--- NOTE | 2017-02-24 20:43 | NUR ---
LOW BLOOD SUGAR PATIENT WITH A BLOOD SUGAR OF 68 MG/DL . GIVEN ORANGE JUICE WILL RECHECK THE BLOOD SUGAR
--- NOTE | 2017-02-24 21:45 | NUR ---
BLOOD SUGAR AROUND NORMAL LIMITS PATIENT WITH A BS OF 102MG/DL WILL CONTINUE TO MONITOR PATIENT CALL LIGHT WITHIN REACH
--- NOTE | 2017-02-24 23:48 | NUR ---
RN ROUNDS PATIENT ON BED BREATHING EVEN AND UNLABORED MAINTAINED FOR SAFETY PRECAUTION MAINTAINED MONITORED FOR SEIZURE ACTIVITY. CALL LIGHT WITHIN REACH WILL CONTINUE TO MONITOR.
--- NOTE | 2017-02-25 | NUR ---
npo patient maintained on npo, explained the procedure the patient will have and verbalized understanding. will continue to monitor.
[2017-02-25 00:09] VITALS: BP_SYST 124
--- NOTE | 2017-02-25 01:58 | NUR ---
RN ROUNDS PATIENT ON BED SLEEPING AND RESTING, CALL LIGHT WITHIN REACH WILL CONTINUE TO MONITOR.
--- NOTE | 2017-02-25 04:00 | NUR ---
LARY BROWER PATIENT ON BED AWAKE AND ALERT, PATIENT SMOKED EARLIER AND EXPLAINED THAT PATIENTS ARE NOT ALLOWED TO HAVE ANY CIGARETTE AND MOTORCYCLE POLICE OFFICER INSIDE THE PATIENT'S ROOM TO AVOID ANY DANDER THAT MIGHT HAPPEN.
[2017-02-25] MEDS: LEVOTHYROXINE SODIUM 0.15 MG TABLET PO SCH (06:25)
--- NOTE | 2017-02-25 06:45 | NUR ---
MD CALLED MD CALLED TO CONFIRM THE TIME OF CENTRAL LINE TO BE DONE AT 7:30AM AND CONFIRMED THAT THE CONSENT IS SIGNED, AND THE EQUIPMENT THAT HE NEEDS AT THE BEDSIDE.
--- NOTE | 2017-02-25 06:47 | NUR ---
CLOSING NOTES PATIENT ON BED AWAKE AND ALERT BREATHING EVEN AND UNLABORED, MAINTAINED ON POSITION OF COMFORT MAINTAINED SAFETY PRECAUTION. STILL ENCOURAGED TO USE SEIZURE PADS ON THE RAILS BUT PATIENT REFUSED. NO PAIN NOTED. WILL GIVE REPORT TO AM NURSE, CONSENT SIGNED FOR EGD, CENTRAL LINE AND GASTRIC EMPTYING. WITH LATEST BS OF 84. WILL CONTINUE TO MONITOR CALL LIGHT WITHIN REACH.
--- NOTE | 2017-02-25 07:00 | NUR ---
NUCLEAR MEDICINE CALLED NUCLEAR MEDICINE CALLED TO CONFIRM THAT THE GASTRIC EMPTYING WILL BE AT 10:30AM TALKED TO VENANCIO. WILL GIVE REPORT TO AM NURSE.
--- NOTE | 2017-02-25 07:05 | NUR ---
PAGED PAGED ANANDA MACIAS AT [phone] SPOKE WITH HEATHER.
[2017-02-25] MEDS ORDERED: LIDOCAINE 2%, 20 ML MDV ONE (07:23)
[2017-02-25 07:39] LABS: BASOPHILS % (AUTO) 0.3 % (0.0-2.0); EOSINOPHILS % (AUTO) 0.4 % (0.0-4.0); HEMATOCRIT 30.1 % (36-48); HEMOGLOBIN 9.3 g/dL (12.0-16.0); LYMPHOCYTES # (AUTO) 1.5 K/uL (1.0-5.5); LYMPHOCYTES % (AUTO) 23.4 % (20.5-51.5); MEAN CORPUSCULAR HEMOGLOBIN 23 pg (27-31); MEAN CORPUSCULAR HGB CONC 31 % (32-36); MEAN CORPUSCULAR VOLUME 74 fL (79.0-98.0); MONOCYTES # (AUTO) 0.3 K/uL (0.0-1.0); MONOCYTES % (AUTO) 5.4 % (1.7-9.3); NEUTROPHILS # (AUTO) 4.6 K/uL (1.8-7.7); NEUTROPHILS % (AUTO) 70.5 % (40.0-70.0); PLATELET COUNT (AUTO) 215 K/uL (130-430); RED BLOOD CELL COUNT(AUTO) 4.09 MIL/uL (4.2-6.2); RED CELL DISTRIBUTION WIDTH 19.6 % (9.0-15.0); WHITE BLOOD COUNT (AUTO) 6.4 K/uL (4.8-10.8)
[2017-02-25 07:43] LABS: CALCIUM 9.3 mg/dL (8.4-11.0); CREATININE 0.61 mg/dL (0.55-1.30); POTASSIUM 3.8 mmol/L (3.5-5.1)
[2017-02-25 08:00] VITALS: BP_SYST 152
--- NOTE | 2017-02-25 08:00 | NUR ---
Opening Note Report received form the NOC shift nurse. 18g EJ was just placed by Dr. Britton. Patient just left the unit for GI lab to have EGD done. Will continue to monitor.
[2017-02-25 08:03] LABS: PROTHROMBIN TIME 10.1 SECS (9.5-12.5)
[2017-02-25] MEDS: levETIRAcetam 500 MG TABLET PO SCH ×2 (09:00→20:23)
[2017-02-25] MEDS: HYDROCORTISONE 10 MG TABLET (CORTEF) PO SCH ×2 (09:00→20:18)
[2017-02-25] MEDS: ASCORBIC ACID 500 MG TABLET PO SCH (09:00)
[2017-02-25] MEDS: LISINOPRIL 10 MG TABLET (PRINIVIL) PO SCH (09:00)
[2017-02-25] MEDS: buPROPion HCL 150 MG XL TAB PO SCH (09:00)
[2017-02-25] MEDS: DOCUSATE SODIUM 100 MG CAPSULE PO SCH ×2 (09:00→20:19)
[2017-02-25] MEDS: clonazePAM 0.5 MG TABLET PO SCH ×3 (09:00→20:21)
[2017-02-25] MEDS: MULTIVITAMINS TAB 1 TABLET PO SCH (09:00)
[2017-02-25] MEDS: OMEPRAZOLE 20 MG CAPSULE.DR (PriLOSEC) PO SCH (09:00)
[2017-02-25] MEDS: DIGOXIN 0.125 MG TABLET PO SCH (09:00)
[2017-02-25] MEDS: MEGESTROL ACETATE 400 MG/10 ML UDC PO SCH ×2 (09:00→20:23)
[2017-02-25] MEDS: MIDAZOLAM HCL 5 MG/5 ML VIAL ONE ×5 (09:08→10:17)
[2017-02-25] MEDS ORDERED: MIDAZOLAM HCL 5 MG/5 ML VIAL ONE (09:09)
[2017-02-25] MEDS: fentaNYL CITRATE/PF 100 MCG/2 ML AMP ONE ×4 (09:09→10:05)
--- NOTE | 2017-02-25 11:20 | NUR ---
RN Notes Patient returned to the unit from GI lab.
[2017-02-25] MEDS: MUPIROCIN 2% TOPICAL OINTMENT 22 GM NS SCH ×2 (11:22→20:18)
[2017-02-25] MEDS: ENOXAPARIN SODIUM 40 MG/0.4 ML SYRINGE SUBCUT SCH (11:22)
--- NOTE | 2017-02-25 12:45 | NUR ---
Rounds Patient is resting in bed. call light is within reach and bed is in low position.
--- NOTE | 2017-02-25 14:00 | NUR ---
MD Rounds Dr. Chapman rounded on the patient. stated that the patient may be discharged to [facility]. Will follow up.
[2017-02-25] MEDS: VANCOMYCIN HCL 1,000 MG in NS 250 ML IV SCH (14:42)
[2017-02-25] MEDS: SUCRALFATE 1 GM TABLET PO SCH ×2 (14:43→20:22)
--- NOTE | 2017-02-25 14:44 | NUR ---
DC Planning: Per Dr. Chapman, DCP to [facility] for iv abx x7 days and iv ferricet x 7days per MAR. CARLSONP to process the order. Addendum: 02/25/17 at 1623 by Marky Hickman RN >> Per LARY Baires: "confirmed pt.is agreeable with POC to [facility]". -- Triciadcp made aware.
[2017-02-25 15:13] VITALS: BP_SYST 152
[2017-02-25 16:18] LABS: FOLATE (FOLIC ACID) 18.1 ng/mL (>3.0)
[2017-02-25 16:38] VITALS: BP_SYST 122
--- NOTE | 2017-02-25 16:38 | NUR ---
DISCHARGE PLANNING DC order to SNF. Per CM note patient agreeable with discharge plan to MD recommended facility. Faxed SNF referral to [phone]. called and spoke with Johnnie in admitting who will return call to DCP/Nurses station with bed assignment. Called [facility] [phone] spoke with Avinash TODD transport on will call to [facility]. Transportation packet in nurses station. Addendum: 02/25/17 at 1758 by Eileen WARNER spoke with Johnnie in admitting at [facility] facility currently has no female beds available at this time. CM director made aware and will notify .
[2017-02-25] MEDS ORDERED: GLUCOSE 15 GM GEL (in 37.5 GM TUBE) ONE (16:53)
--- NOTE | 2017-02-25 17:11 | NUR ---
DC planning: Per gabi Arellano, no beds at [facility] per Johnnie at [facility]. I left message for Dr. Chapman to notify of this and I also asked nurse Baires to f/u with Dr. Chapman for dc plan.
--- NOTE | 2017-02-25 17:58 | NUR ---
PAGED PAGED CANDIS SILVERIO AT [phone] SPOKE WITH TRAVIS.
--- NOTE | 2017-02-25 18:50 | NUR ---
Closing Note Report given to Unique MONTEJO shift nurse. Patient is currently sitting up in bed. Spoke with Dr. Chapman and informed MD that there is not a room available at [facility]. IV 18g is on the left EJ running 1/2NS+20 KCL@75.
[2017-02-25] MEDS: KCL 20 mEq in 0.45% NS 1000 mL 1,000 ML IV SCH (19:00)
--- NOTE | 2017-02-25 19:55 | NUR ---
opening note report was endorsed by day nurse. Patient is awake and alert laying in bed no signs of any distress, Patient assisted to outside to smoke by machine pack assembler via wheel chair. Patient educated reconstructive surgeon light for assistance. Call light is with her. Patient is stable has no other needs at this time. Will continue to monitor hourly.
[2017-02-25 20:17] VITALS: BP_SYST 132
[2017-02-25] MEDS: TEMAZEPAM 15 MG CAPSULE PO SCH (20:20)
[2017-02-25] MEDS: QUEtiapine FUMARATE 100 MG TABLET PO SCH (20:21)
[2017-02-25] MEDS: PANTOPRAZOLE SODIUM 40 MG TAB PO SCH (20:22)
--- NOTE | 2017-02-25 20:52 | NUR ---
HYPOGLYCEMIA/MEDICATION NO SIGNS OF COLD SWEATS, CLAMMY SKIN, DENIES LIGHTHEADEDNESS, SHAKING, IRRITABILITY, NO SIGNS OF HYPOGLYCEMIA EFFECTS. PATENTIS AWAKE AND ALERT SITTING IN BED. PROVIDED WITH 120ML APPLE JUICE, GRAM CRACKERS, AND A ORANGE JUICE. WILL CONTINUE TO MONITOR.
--- NOTE | 2017-02-25 21:10 | NUR ---
ACCU CHECK/ reassessed Accu check re done and blood sugar improved to 128 after snack was provided. Patient is awake and alert, laying in bed no signs of any distress, breathing is equal and non labored. Patient has all safety precautions in place. Patient is requesting to go outside and smoke SHOT PEENING OPERATOR assisting patient to go smoke via wheel chair. Patient is stable has no other needs at this time. Will continue to monitor.
[2017-02-25] MEDS: traZODone HCL 50 MG TABLET (DESYREL) PO SCH (22:10)
--- NOTE | 2017-02-25 22:20 | NUR ---
MEDICATION/IV FLUID Addendum: 02/25/17 at 2340 by Unique Singh RN Patients scheduled medication given per order, Patients IV fluid bag changed as well. Patient is awake and alert, laying in bed no signs of any distress, breathing is equal and non labored. Patient is stable. No other needs at this time. Will continue to monitor.
--- NOTE | 2017-02-26 00:10 | NUR ---
rn rounding Patient is awake and laying in bed no signs of any distress, breathing is equal and non labored. Patient has all safety precautions in place. Patient has iv infusing, call light is with her educated to use for assistance. Patient is stable no other needs at this time.
[2017-02-26 00:16] VITALS: BP_SYST 100
--- NOTE | 2017-02-26 02:00 | NUR ---
rn rounding Patient is awake and alert, assisted to bathroom and back to bed. Patient shows no signs of any distress, breahting is equal and non labored. Patient has all safety precautions in place. call light is with her, educated to use for assistance, but is non complaint. Patient is stable with no other needs at this time. Will continue to monitor hourly.
--- NOTE | 2017-02-26 04:26 | NUR ---
rn rounding Patient appears to be resting with both eyes closed no signs of any distress, breathing is equal and non labored. Patient has all safety precautions in place. Call light is with her but is non compliant. no other needs at this time. Will continue to monitor.
[2017-02-26] MEDS: LEVOTHYROXINE SODIUM 0.15 MG TABLET PO SCH (06:06)
--- NOTE | 2017-02-26 06:48 | NUR ---
RN closing note Patient is awake ambulated to bathroom, Accu check was done no coverage was needed, no hypoglycemia, patient is alert and oriented. Patient educated to use call light for assistance. call light is with her. Patients gown changed. Patient has seizure precautions in place. Patient is stable no signs of any distress, breathing is equal and non labored. Patient has no other needs will endorse report to [facility] day nurse at bed side.
--- NOTE | 2017-02-26 07:20 | NUR ---
Initial Note Received report from the night nurse Unique at bedside. Pt AOX4. No signs of distress noted at this time. Pt is NPO and waiting for Nuclear MED testing.
--- NOTE | 2017-02-26 07:45 | NUR ---
Nuclear MED Pt taken by [employer] for testing
[2017-02-26 08:05] VITALS: BP_SYST 135
[2017-02-26] MEDS: KCL 20 mEq in 0.45% NS 1000 mL 1,000 ML IV SCH (08:20)
[2017-02-26] MEDS: MEGESTROL ACETATE 400 MG/10 ML UDC PO SCH (09:00)
[2017-02-26] MEDS: DOCUSATE SODIUM 100 MG CAPSULE PO SCH (09:00)
[2017-02-26] MEDS: clonazePAM 0.5 MG TABLET PO SCH (09:00)
--- NOTE | 2017-02-26 10:20 | NUR ---
Dr. Chapman Called As per MD send the pt to [facility] cntr. Marky POTTS notified.
--- NOTE | 2017-02-26 10:27 | NUR ---
DISCHARGE PLANNING Faxed SNF referral to [facility] [phone]. will follow up. Addendum: 02/26/17 at 1201 by Eileen Dunbar DP spoke with Sheila in admitting at [facility] denied, patient exhausted Medicare [facility] days. DELROY Negro made aware.
[2017-02-26] MEDS: ASCORBIC ACID 500 MG TABLET PO SCH (10:54)
[2017-02-26] MEDS: ENOXAPARIN SODIUM 40 MG/0.4 ML SYRINGE SUBCUT SCH (10:54)
[2017-02-26] MEDS: levETIRAcetam 500 MG TABLET PO SCH (10:55)
[2017-02-26] MEDS: HYDROCORTISONE 10 MG TABLET (CORTEF) PO SCH (10:55)
[2017-02-26] MEDS: buPROPion HCL 150 MG XL TAB PO SCH (10:56)
[2017-02-26] MEDS: SUCRALFATE 1 GM TABLET PO SCH (10:56)
[2017-02-26] MEDS: MULTIVITAMINS TAB 1 TABLET PO SCH (10:56)
[2017-02-26] MEDS: LISINOPRIL 10 MG TABLET (PRINIVIL) PO SCH (10:59)
[2017-02-26] MEDS: PANTOPRAZOLE SODIUM 40 MG TAB PO SCH (11:00)
[2017-02-26] MEDS: DIGOXIN 0.125 MG TABLET PO SCH (11:00)
[2017-02-26] MEDS: MUPIROCIN 2% TOPICAL OINTMENT 22 GM NS SCH (11:01)
--- NOTE | 2017-02-26 11:30 | NUR ---
RN Rounds Pt awake and does not complain of any discomfort. No signs of distress noted. Bed is lowest position and locked. Call light within reach.
[2017-02-26 12:19] VITALS: BP_SYST 118
[2017-02-26 12:37] VITALS: BP_SYST 135
[2017-02-26] MEDS ORDERED: FLU VACC QS 2017-18(36MOS+)/PF 0.5 ML/SYR SYRINGE I.M. PRN (13:45)
--- NOTE | 2017-02-26 15:25 | NUR ---
Discharge Note Pt has been discharged home as Dr. Chapman ordered. Pt is in stable condition and no signs of distress noted at the time of discharge. Transitional care documents and instructions given to pt. IV line removed and pressure and gauze applied. No signs of bleeding noted. ID band removed.
--- NOTE | 2017-02-26 15:33 | NUR ---
Nutrition F/U Admitting Diagnosis Intractable N/V, cellulitis Reviewed Pertinent Medical/Surgical Hx Medical Record Patient Medical History Comment: PMH: Gallia's disease, DM, hypothyroidism, seizure disorder, depression per MD notes. Past Surgical Hx: Gastric bypass. Pt also found w:/ cellulitis of Both lower extremities, acute GE, anemia, Gallia disease, DM, hypothyroidism, H/O bipolar and depression, seizure disorder per MD notes. Subjective Information Pt seen while eating lunch this afternoon. Pt reported improving appetite. Pt requested chocolate pudding; RD notified FNS staff to provide. Pt pending D/C to SNF. Pt had a gastric emptying study earlier today which revealed normal gastric emptying. Per EMR, PO Intakes: 78% average x6 meals. Last BM x2 02/23/17. I/O: 1739/0 (+1739 ml) per 12 hours. Current diet is appropriate at this time. Pt was not interested in nutrition education. Current Diet Order/Nutrition Support Soft (low fiber/bland) x1 day Patient/Significant Other Able To Verbalize Education Provided Not Indicated Pertinent Medications zofran, MVI, VIT C, megace, synthroid Pertinent Labs 02/25/17: BG 95 WNL (improved), POC BG 128 H, BUN 7 L, CRE 0.61 WNL (improved), H/H 9.3 L/30.1 L Height (Feet) 5 feet Height (Inches) 3.00 inches Weight (Pounds) 118 pounds (admission) Weight (Calculated Kilograms) 53.192912 kilograms Patient Weight 53.524 kg Body Mass Index 20.90 kg/m2 Usual Weight 112 lbs %UBW 105 %IBW 103 [place]/Adjusted Body Weight 115 lb/52 kg Recent Weight Change Yes - per pt Weight Status Appropriate Gastrointestinal Symptoms Nausea Last BM Feb 22, 2017 Food Allergies No - per pt Usual Diet At Home Regular diet Skin Integrity Comment: Yazan scale: 19; no skin issues noted Current % PO Fair (50-74%) Estimated Energy Expenditure (kcals/day) 9774-0201 kcal/day (30-35 kcal/kg CBW for repletion) Estimated Protein Required (g/day) 54-65 gm/day (1-1.2 gm/kg CBW for repletion) Estimated Fluid Required (l/day) 1.6-1.8 L/day (1 ml/kcal/day for maintenance) Problem/Etiology/Signs/Symptoms Moderate malnutrition related to chronic illness as evidenced by unintentional wt loss, possible muscle and fat wasting and edema. *ongoing Expected Outcomes/Goals Monitor pt appetite and PO intake w/ goal of pt meeting at least 75% of estimated nutritional needs, labs trending WNL, normal GI function, skin integrity/wt maintenance. Dietitian Recommendations *Recommend continuing soft (low fiber/bland) diet per MD (oral supplement will provide an additional 750 kcal/day and 42 gm protein/day) Follow Up High Risk: F/U in 2-3 day
--- NOTE | 2017-02-26 15:40 | NUR ---
Dietitian Recommendations *Recommend continuing soft (low fiber/bland) diet per MD (oral supplement will provide an additional 750 kcal/day and 42 gm protein/day) LP, RD Please refer to Nutrition F/U for details.
== END 2017-02-26 15:25 | disposition home or self-care (01) | DRG 602 ==
LOC: SMU 13:03
PROVIDERS: ADMIT Family Medicine; ATTEND Family Medicine
PROC: 0DB68ZX Excision of Stomach, Via Natural or Artificial Opening Endoscopic, Diagnostic (ICD-10-PCS; 2017-02-25)
PROC: 0DB48ZX Excision of Esophagogastric Junction, Via Natural or Artificial Opening Endoscopic, Diagnostic (ICD-10-PCS; principal; 2017-02-25 10:00)
DX: L03.115 Cellulitis of right lower limb (principal); E43 Unspecified severe protein-calorie malnutrition; E27.1 Primary adrenocortical insufficiency; D64.9 Anemia, unspecified; E03.9 Hypothyroidism, unspecified; E11.9 Type 2 diabetes mellitus without complications; G40.909 Epilepsy, unspecified, not intractable, without status epilepticus; K52.9 Noninfective gastroenteritis and colitis, unspecified; L03.116 Cellulitis of left lower limb; K27.9 Peptic ulcer, site unspecified, unspecified as acute or chronic, without hemorrhage or perforation
CPT/HCPCS: 36415; 43239; 78264-TC; 80048; 80076; 80162-TC; 81000-TC; 82150-TC; 82607; 82746; 82962; 83540-TC; 83550-TC; 83690-TC; 83880; 85025; 85610-TC; 85730-TC; 87081; 88305; 88312; 88313; A9541; C1751; J1650; J1815; J2001; J2250; J3010; J3370; J3480; J7030; J7050; Q2037; Q9964

== ENCOUNTER 2017-06-13 17:53 | Inpatient (IN) | payer OTHER, MEDICAID ==
[~2017-06-13] VITALS: Ht 157.5 cm; Wt 47.2 kg
[~2017-06-13 17:53] MED LIST changes: +ASCO500T20 PO; +DOCU250C71 PO; +HYDR20TA PO; +MULT PO; +ONDA4TAB5 PO; +OXYC-130 PO; +cloNIDine HCL 0.1 MG TABLET PO PRN
[2017-06-13 18:11] VITALS: BP_SYST 138
[2017-06-13] MEDS ORDERED: NACL 0.9% 1,000 ML IV ONE (19:02)
[2017-06-13] MEDS ORDERED: PANTOPRAZOLE SODIUM 40 MG/VIAL (PROTONIX) IVP ONE (19:15)
[2017-06-13] MEDS ORDERED: ONDANSETRON HCL 4 MG/2 ML VIAL IVP ONE ×2 (19:15→20:45)
[2017-06-13] MEDS ORDERED: MORPHINE 4 MG/ML INJ. SYRINGE IVP ONE (19:15)
[2017-06-13 19:47] LABS: HEMATOCRIT 44.4 % (36-48); HEMOGLOBIN 14.3 g/dL (12.0-16.0); MEAN CORPUSCULAR HEMOGLOBIN 26 pg (27-31); MEAN CORPUSCULAR HGB CONC 32 % (32-36); MEAN CORPUSCULAR VOLUME 81 fL (79.0-98.0); PLATELET COUNT (AUTO) 198 K/uL (130-430); RED BLOOD CELL COUNT(AUTO) 5.48 MIL/uL (4.2-6.2); RED CELL DISTRIBUTION WIDTH 23.9 % (9.0-15.0); WHITE BLOOD COUNT (AUTO) 6.8 K/uL (4.8-10.8)
[2017-06-13 19:49] LABS: BILIRUBIN,URINE NEGATIVE (NEGATIVE); BLOOD, URINE NEGATIVE (NEGATIVE); CLARITY/URINE CLEAR (CLEAR); COLOR,URINE YELLOW (YELLOW); GLUCOSE,URINE NEGATIVE (NEGATIVE); KETONES,URINE NEGATIVE (NEGATIVE); LEUKOCYTE ESTERASE ,URINE NEGATIVE (NEGATIVE); NITRITE, URINE NEGATIVE (NEGATIVE); PH,URINE 6.5 (5.0-8.0); PROTEIN URINE TRACE (NEGATIVE)
[2017-06-13 19:53] LABS: PROTHROMBIN TIME 9.7 SECS (9.5-12.5)
[2017-06-13 19:54] LABS: CALCIUM 9.7 mg/dL (8.4-11.0); CREATININE 0.6 mg/dL (0.55-1.30); POTASSIUM 4.2 mmol/L (3.5-5.1)
[2017-06-13 19:55] LABS: ALBUMIN 3.8 g/dL (3.4-4.8); TOTAL BILIRUBIN 0.4 mg/dL (0.0-1.0)
[2017-06-13 20:09] LABS: BACTERIA,URINE RARE /HPF (None Seen); RBC,URINE NONE SEEN /HPF (0-3); WBC,URINE NONE SEEN /HPF (0-3)
[2017-06-13 20:10] LABS: CALCIUM OXALATE CRYSTALS,UR 0-10 /HPF (None Seen); COARSE GRANULAR CASTS,URINE 0-10 /LPF (None Seen); MUCUS,URINE None Seen /LPF (None Seen)
[2017-06-13 20:28] LABS: BASOPHILS % (MANUAL) 0 % (0-2); EOSINOPHILS % (MANUAL) 0 % (0-7); LYMPHOCYTES % (MANUAL) 22 % (20-46); MONOCYTES % (MANUAL) 7 % (0-11)
[2017-06-13] MEDS: NACL 0.9% 1,000 ML IV SCH (21:22)
[2017-06-13 21:45] VITALS: BP_SYST 134
[2017-06-13] MEDS ORDERED: OXYCODONE/ACETAMINOPHEN 5-325 TABLET PO SCH (23:15)
[2017-06-13] MEDS ORDERED: ONDANSETRON 4 MG ODT TAB PO SCH (23:15)
[2017-06-14 00:40] VITALS: BP_SYST 154
[2017-06-14] MEDS ORDERED: TEMAZEPAM 15 MG CAPSULE ONE (00:58)
[2017-06-14] MEDS ORDERED: QUEtiapine FUMARATE 100 MG TABLET PO ONE (01:00)
[2017-06-14] MEDS ORDERED: traZODone HCL 50 MG TABLET (DESYREL) ONE (01:00)
[2017-06-14] MEDS ORDERED: traZODone HCL 50 MG TABLET (DESYREL) PO ONE (01:00)
[2017-06-14] MEDS ORDERED: TEMAZEPAM 15 MG CAPSULE PO ONE (01:00)
[2017-06-14] MEDS ORDERED: QUEtiapine FUMARATE 100 MG TABLET ONE (01:01)
[2017-06-14] MEDS: KCL 20 mEq in 0.45% NS 1000 mL 1,000 ML IV SCH ×2 (01:37→15:14)
[2017-06-14] MEDS ORDERED: metroNIDAZOLE 500 mg/NS 100 ML IV ONE (02:42)
[2017-06-14 06:32] LABS: CREATININE 0.59 mg/dL (0.55-1.30)
[2017-06-14] MEDS: metroNIDAZOLE 500 mg/NS 100 ML IV SCH ×3 (06:40→21:23)
[2017-06-14] MEDS: LEVOTHYROXINE SODIUM 0.15 MG TABLET PO SCH (06:40)
[2017-06-14 06:58] LABS: BASOPHILS # (AUTO) 0.1 K/uL (0.0-0.2); EOSINOPHILS # (AUTO) 0.1 K/uL (0.0-0.4); EOSINOPHILS % (AUTO) 2.4 % (0.0-4.0); HEMATOCRIT 34.3 % (36-48); HEMOGLOBIN 11.1 g/dL (12.0-16.0); LYMPHOCYTES # (AUTO) 1.8 K/uL (1.0-5.5); LYMPHOCYTES % (AUTO) 32.8 % (20.5-51.5); MEAN CORPUSCULAR HEMOGLOBIN 27 pg (27-31); MEAN CORPUSCULAR HGB CONC 33 % (32-36); MEAN CORPUSCULAR VOLUME 82 fL (79.0-98.0); MONOCYTES # (AUTO) 0.6 K/uL (0.0-1.0); MONOCYTES % (AUTO) 11.3 % (1.7-9.3); NEUTROPHILS % (AUTO) 52.5 % (40.0-70.0); PLATELET COUNT (AUTO) 141 K/uL (130-430); RED CELL DISTRIBUTION WIDTH 23.5 % (9.0-15.0); WHITE BLOOD COUNT (AUTO) 5.6 K/uL (4.8-10.8)
[2017-06-14 08:30] VITALS: BP_SYST 153
[2017-06-14] MEDS: GABAPENTIN 100 MG CAPSULE PO SCH ×3 (09:22→21:26)
[2017-06-14] MEDS: DULoxetine HCL 30 MG CAPSULE.DR (CYMBALTA) PO SCH ×2 (09:22→21:24)
[2017-06-14] MEDS: levETIRAcetam 500 MG TABLET PO SCH ×2 (09:23→21:26)
[2017-06-14] MEDS: MULTIVITAMINS TAB 1 TABLET PO SCH (09:23)
[2017-06-14] MEDS: DOCUSATE SODIUM 100 MG CAPSULE PO SCH ×2 (09:23→21:24)
[2017-06-14] MEDS: METHOCARBAMOL 500 MG TABLET PO SCH ×2 (09:25→21:28)
[2017-06-14] MEDS: OMEPRAZOLE 20 MG CAPSULE.DR (PriLOSEC) PO SCH (09:25)
[2017-06-14] MEDS: buPROPion HCL 150 MG XL TAB PO SCH (09:26)
[2017-06-14] MEDS: ENOXAPARIN SODIUM 40 MG/0.4 ML SYRINGE SUBCUT SCH (09:27)
[2017-06-14] MEDS: NACL 0.9% 1,000 ML IV SCH (09:30)
[2017-06-14] MEDS: clonazePAM 0.5 MG TABLET PO SCH ×3 (09:37→21:27)
[2017-06-14] MEDS: DIGOXIN 0.125 MG TABLET PO SCH (09:38)
[2017-06-14] MEDS: LISINOPRIL 10 MG TABLET (PRINIVIL) PO SCH (09:40)
[2017-06-14] MEDS: INSULIN REGULAR, HUMAN 100 UNITS/ML, 10 ML VIAL (novoLIN R) SUBCUT PRN ×2 (11:49→17:24)
[2017-06-14 12:48] VITALS: BP_SYST 102
[2017-06-14 16:58] VITALS: BP_SYST 110
[2017-06-14 20:17] VITALS: BP_SYST 112
[2017-06-14] MEDS: QUEtiapine FUMARATE 100 MG TABLET PO SCH (21:24)
[2017-06-14] MEDS: THORAZINE (chlorproMAZINE) 25 MG TAB PO SCH (21:24)
[2017-06-14] MEDS: traZODone HCL 50 MG TABLET (DESYREL) PO SCH (21:26)
[2017-06-14] MEDS: HYDROCORTISONE 10 MG TABLET (CORTEF) PO SCH (21:27)
[2017-06-14] MEDS: TEMAZEPAM 15 MG CAPSULE PO SCH (21:29)
[2017-06-15 01:29] VITALS: BP_SYST 144
[2017-06-15] MEDS: LEVOTHYROXINE SODIUM 0.15 MG TABLET PO SCH (06:24)
[2017-06-15] MEDS: KCL 20 mEq in 0.45% NS 1000 mL 1,000 ML IV SCH (06:24)
[2017-06-15] MEDS: metroNIDAZOLE 500 mg/NS 100 ML IV SCH ×3 (06:25→22:02)
[2017-06-15 08:55] VITALS: BP_SYST 136
[2017-06-15] MEDS: DULoxetine HCL 30 MG CAPSULE.DR (CYMBALTA) PO SCH ×2 (09:19→20:47)
[2017-06-15] MEDS: LISINOPRIL 10 MG TABLET (PRINIVIL) PO SCH (09:19)
[2017-06-15] MEDS: DIGOXIN 0.125 MG TABLET PO SCH (09:19)
[2017-06-15] MEDS: METHOCARBAMOL 500 MG TABLET PO SCH ×2 (09:21→20:47)
[2017-06-15] MEDS: buPROPion HCL 150 MG XL TAB PO SCH (09:22)
[2017-06-15] MEDS: OMEPRAZOLE 20 MG CAPSULE.DR (PriLOSEC) PO SCH (09:22)
[2017-06-15] MEDS: clonazePAM 0.5 MG TABLET PO SCH ×3 (09:22→21:00)
[2017-06-15] MEDS: levETIRAcetam 500 MG TABLET PO SCH ×2 (09:22→20:46)
[2017-06-15] MEDS: DOCUSATE SODIUM 100 MG CAPSULE PO SCH ×2 (09:23→20:56)
[2017-06-15] MEDS: GABAPENTIN 100 MG CAPSULE PO SCH ×3 (09:23→20:48)
[2017-06-15] MEDS: OXYCODONE/ACETAMINOPHEN 5-325 TABLET PO PRN (09:28)
[2017-06-15] MEDS: ENOXAPARIN SODIUM 40 MG/0.4 ML SYRINGE SUBCUT SCH (09:29)
[2017-06-15] MEDS: MULTIVITAMINS TAB 1 TABLET PO SCH (09:30)
[2017-06-15 11:30] VITALS: BP_SYST 106
[2017-06-15 15:34] VITALS: BP_SYST 108
[2017-06-15 19:05] VITALS: BP_SYST 133
[2017-06-15] MEDS: THORAZINE (chlorproMAZINE) 25 MG TAB PO SCH (20:45)
[2017-06-15] MEDS: traZODone HCL 50 MG TABLET (DESYREL) PO SCH (20:46)
[2017-06-15] MEDS: QUEtiapine FUMARATE 100 MG TABLET PO SCH (20:46)
[2017-06-15] MEDS: HYDROCORTISONE 10 MG TABLET (CORTEF) PO SCH (20:48)
[2017-06-15] MEDS: TEMAZEPAM 15 MG CAPSULE PO SCH (21:00)
[2017-06-15] MEDS: ONDANSETRON 4 MG ODT TAB PO PRN (21:59)
[2017-06-16 01:50] VITALS: BP_SYST 154
[2017-06-16] MEDS: KCL 20 mEq in 0.45% NS 1000 mL 1,000 ML IV SCH ×2 (02:56→08:20)
[2017-06-16] MEDS: ONDANSETRON 4 MG ODT TAB PO PRN ×2 (06:22→08:18)
[2017-06-16] MEDS: LEVOTHYROXINE SODIUM 0.15 MG TABLET PO SCH (06:22)
[2017-06-16] MEDS: metroNIDAZOLE 500 mg/NS 100 ML IV SCH ×3 (06:24→22:00)
[2017-06-16] MEDS: OXYCODONE/ACETAMINOPHEN 5-325 TABLET PO PRN ×2 (06:28→14:37)
[2017-06-16 08:10] VITALS: BP_SYST 129
[2017-06-16] MEDS: DULoxetine HCL 30 MG CAPSULE.DR (CYMBALTA) PO SCH ×2 (08:18→21:00)
[2017-06-16] MEDS: METHOCARBAMOL 500 MG TABLET PO SCH ×2 (08:18→21:00)
[2017-06-16] MEDS: clonazePAM 0.5 MG TABLET PO SCH ×3 (08:18→21:00)
[2017-06-16] MEDS: levETIRAcetam 500 MG TABLET PO SCH ×2 (08:18→21:00)
[2017-06-16] MEDS: LISINOPRIL 10 MG TABLET (PRINIVIL) PO SCH (08:18)
[2017-06-16] MEDS: buPROPion HCL 150 MG XL TAB PO SCH (08:19)
[2017-06-16] MEDS: DOCUSATE SODIUM 100 MG CAPSULE PO SCH ×2 (08:19→21:00)
[2017-06-16] MEDS: OMEPRAZOLE 20 MG CAPSULE.DR (PriLOSEC) PO SCH (08:19)
[2017-06-16] MEDS: DIGOXIN 0.125 MG TABLET PO SCH (08:19)
[2017-06-16] MEDS: MULTIVITAMINS TAB 1 TABLET PO SCH (08:19)
[2017-06-16] MEDS: GABAPENTIN 100 MG CAPSULE PO SCH ×3 (08:19→21:00)
[2017-06-16] MEDS: ENOXAPARIN SODIUM 40 MG/0.4 ML SYRINGE SUBCUT SCH (08:21)
[2017-06-16 11:56] VITALS: BP_SYST 125
[2017-06-16 16:10] VITALS: BP_SYST 144
[2017-06-16 19:59] VITALS: BP_SYST 143
[2017-06-16 20:48] VITALS: BP_SYST 108
[2017-06-16] MEDS: traZODone HCL 50 MG TABLET (DESYREL) PO SCH (21:00)
[2017-06-16] MEDS: QUEtiapine FUMARATE 100 MG TABLET PO SCH (21:00)
[2017-06-16] MEDS: TEMAZEPAM 15 MG CAPSULE PO SCH (21:00)
[2017-06-16] MEDS: HYDROCORTISONE 10 MG TABLET (CORTEF) PO SCH (21:00)
[2017-06-16] MEDS: THORAZINE (chlorproMAZINE) 25 MG TAB PO SCH (21:00)
== END 2017-06-16 22:26 | DRG 641 ==
LOC: SED 17:53 → SMU 21:22 → STU 06-14 22:19
PROVIDERS: ADMIT Family Medicine; ATTEND Family Medicine
DX: E86.0 Dehydration (principal); K52.9 Noninfective gastroenteritis and colitis, unspecified; E27.1 Primary adrenocortical insufficiency; E03.9 Hypothyroidism, unspecified; E11.9 Type 2 diabetes mellitus without complications; G40.909 Epilepsy, unspecified, not intractable, without status epilepticus; G89.29 Other chronic pain; M54.9 Dorsalgia, unspecified; I10 Essential (primary) hypertension; F31.9 Bipolar disorder, unspecified; J44.9 Chronic obstructive pulmonary disease, unspecified; M19.90 Unspecified osteoarthritis, unspecified site; F17.200 Nicotine dependence, unspecified, uncomplicated; Z96.653 Presence of artificial knee joint, bilateral; Z98.84 Bariatric surgery status; Z79.899 Other long term (current) drug therapy; Z85.3 Personal history of malignant neoplasm of breast; Z88.0 Allergy status to penicillin; Z88.2 Allergy status to sulfonamides; Z88.8 Allergy status to other drugs, medicaments and biological substances
CPT/HCPCS: 36415; 80048; 80053; 81000-TC; 82962; 83690-TC; 85007; 85025; 85027; 85610-TC; 85730-TC; 87081; 96361; 96374; 96375; 99285; C9113; J1650; J1815; J2270; J2405; J3480; J3490; J7030; Q0161; Q0162

== ENCOUNTER 2017-06-28 05:28 | Inpatient (IN) | payer OTHER, MEDICAID ==
[~2017-06-28] VITALS: Ht 157.5 cm; Wt 48.5 kg
[2017-06-28 05:28] VITALS: BP_SYST 170
[~2017-06-28 05:28] MED LIST changes: -ASCO500T20 PO; -HYD10 PO; -cloNIDine HCL 0.1 MG TABLET PO PRN
--- NOTE | 2017-06-28 05:30 | NUR ---
Patient to ER bed 6 to gown for evaluation. Side rails up.
--- NOTE | 2017-06-28 05:34 | NUR ---
Patient brought in by ambulance from [facility] C/O unrelieved N/V worse since 4 am. Patient has Hx of peptic ulcer and severe N/V. Takes prilosec & zofran. Patient AAOx4, ematiated, unlabored breathing, active emesis of clear liquid.
[2017-06-28] MEDS ORDERED: LEVE1000 PO (05:45)
--- NOTE | 2017-06-28 05:46 | NUR ---
ER MD Christina at bedside evaluating the patient.
[2017-06-28] MEDS ORDERED: QUET200T PO (05:48)
[2017-06-28] MEDS ORDERED: NACL 0.9% 1,000 ML IV ONE (05:48)
[2017-06-28] MEDS ORDERED: ACET-2165 PO (05:52)
[2017-06-28] MEDS ORDERED: MORPHINE 4 MG/ML INJ. SYRINGE ONE (05:59)
[2017-06-28] MEDS ORDERED: MORPHINE 2 MG/ML INJ. SYRINGE IVP ONE (06:00)
[2017-06-28] MEDS ORDERED: PROCHLORPERAZINE EDISYLATE 10 MG/2 ML VIAL IVP ONE (06:00)
[2017-06-28] MEDS ORDERED: DIPHENHYDRAMINE INJ 50 MG/ML VIAL IVP ONE (06:00)
[2017-06-28] MEDS ORDERED: PANTOPRAZOLE SODIUM 40 MG/VIAL (PROTONIX) IVP ONE (06:00)
--- NOTE | 2017-06-28 06:10 | NUR ---
# 24 gauge angiocath placed to right ac. Use of asceptic technique. Opsite placed over site. Blood return noted. Flushed with 10 cc of normal saline. No evidence of infiltration noted. Patient tolerated well.
--- NOTE | 2017-06-28 06:20 | NUR ---
Unable to draw blood from IV placed. LAB notified.
[2017-06-28 06:25] LABS: BILIRUBIN,URINE 1+ (NEGATIVE); BLOOD, URINE NEGATIVE (NEGATIVE); CLARITY/URINE CLOUDY (CLEAR); COLOR,URINE YELLOW (YELLOW); GLUCOSE,URINE NEGATIVE (NEGATIVE); KETONES,URINE 1+ (NEGATIVE); LEUKOCYTE ESTERASE ,URINE NEGATIVE (NEGATIVE); NITRITE, URINE NEGATIVE (NEGATIVE); PROTEIN URINE TRACE (NEGATIVE)
--- NOTE | 2017-06-28 06:41 | NUR ---
LAB at bedside for blood draw. Patient identified x2
[2017-06-28 06:55] LABS: BACTERIA,URINE FEW /HPF (None Seen); MUCUS,URINE None Seen /LPF (None Seen); RBC,URINE NONE SEEN /HPF (0-3); URINE AMORPHOUS PHOSPHATES 2+ /HPF (None Seen); WBC,URINE 0-3 /HPF (0-3)
--- NOTE | 2017-06-28 07:15 | NUR ---
Report received from LARY Mccray. All care endorsed.
[2017-06-28] MEDS ORDERED: MORPHINE 4 MG/ML INJ. SYRINGE IVP ONE (07:45)
--- NOTE | 2017-06-28 08:00 | NUR ---
Dr. Terry at patient bedside placing central line using sterile technique. RN at bedside. Pt tolerated well. Addendum: 06/28/17 at 0923 by [email or web address] central line placed in right femoral, by Dr. Terry.
[2017-06-28 08:12] LABS: BASOPHILS # (AUTO) 0.3 K/uL (0.0-0.2); BASOPHILS % (AUTO) 4.2 % (0.0-2.0); EOSINOPHILS # (AUTO) 0.1 K/uL (0.0-0.4); EOSINOPHILS % (AUTO) 0.8 % (0.0-4.0); HEMATOCRIT 35.1 % (36-48); HEMOGLOBIN 11.6 g/dL (12.0-16.0); LYMPHOCYTES # (AUTO) 1.2 K/uL (1.0-5.5); LYMPHOCYTES % (AUTO) 18.5 % (20.5-51.5); MEAN CORPUSCULAR HEMOGLOBIN 27 pg (27-31); MEAN CORPUSCULAR HGB CONC 33 % (32-36); MEAN CORPUSCULAR VOLUME 82 fL (79.0-98.0); MONOCYTES # (AUTO) 0.4 K/uL (0.0-1.0); MONOCYTES % (AUTO) 5.9 % (1.7-9.3); NEUTROPHILS # (AUTO) 4.4 K/uL (1.8-7.7); NEUTROPHILS % (AUTO) 70.6 % (40.0-70.0); PLATELET COUNT (AUTO) 148 K/uL (130-430); RED BLOOD CELL COUNT(AUTO) 4.26 MIL/uL (4.2-6.2); RED CELL DISTRIBUTION WIDTH 21.1 % (9.0-15.0); WHITE BLOOD COUNT (AUTO) 6.4 K/uL (4.8-10.8)
[2017-06-28 08:22] LABS: CALCIUM 8.6 mg/dL (8.4-11.0); CREATININE 0.5 mg/dL (0.55-1.30); POTASSIUM 3.5 mmol/L (3.5-5.1)
[2017-06-28 08:26] LABS: ALBUMIN 3.1 g/dL (3.4-4.8); TOTAL BILIRUBIN 0.5 mg/dL (0.0-1.0)
[2017-06-28] MEDS ORDERED: KCL 20 mEq in D5/0.45NS 1000mL 1,000 ML IV ONE (09:00)
--- NOTE | 2017-06-28 09:10 | NUR ---
ADMISSION NOTE Received patient from ER via gurney. Patient admitted with diagnosis of gastroenteritis. Patient is awake, alert, oriented X 3. Patient oriented to hospital room, call light, toileting, pain management and safety-teach back done. Patient informed that Marlyn will be her nurse and that their room number is 106-a. Personal belongings checked and Belongings List documented. Call light within reach.
--- NOTE | 2017-06-28 09:15 | NUR ---
Patient will be admitted to care of Dr. Chapman. Admitted to Med Surg unit. Will go to room 106 A. Belongings list completed. Summary report printed. Report will be given at bedside.
[2017-06-28 09:17] VITALS: BP_SYST 161
--- NOTE | 2017-06-28 09:43 | NUR ---
ADMISSION NOTE: REPORT WAS TAKEN FROM AN. PATIENT IS AWAKE TALKING ON PHONE. PATIENT IS COMPLAINING OF MODERATE PAIN IN ABDOMEN BUT IS TOLERABLE AT THE MOMENT. PATIENT IS COMPLAINING OF NAUSEA AND VOMITING. PATIENT IS NOT COMPLAINING OF SHORTNESS OF BREATH. PATIENT IS ON ROOM AIR. HOOKED PATIENT UP TO IV FLUIDS. PATIENT HAS IV RIGHT AC. PATIENT HAS DIAPER ON BUT DOESN'T WANT TO TAKE IT OFF YET. PATIENT ALSO HAS CENTRAL LINE IN RIGHT FEMORAL. GAVE PATIENT SOME WATER. SKIN IS INTACT. PATIENT HAS DISCOLORATION ON RIGHT BUTTOCKS. LOOKS LIKE HEALED WOUND. WILL TAKE PICTURES. PATIENT HAS PADDED SIDE RAILS UP. CALL LIGHT IS IN REACH AND BED ALARM IS ON. WILL CONTINUE TO MONITOR.
[2017-06-28 12:00] VITALS: BP_SYST 148
--- NOTE | 2017-06-28 12:10 | NUR ---
NOTE: PATIENT IS COMFORTABLY SLEEPING IN BED WITH NO SIGNS OF DISTRESS. WILL CONTINUE TO MONITOR.
--- NOTE | 2017-06-28 13:10 | NUR ---
NOTE: PATIENT HAD TO GO TO RESTROOM. HELPED PATIENT TO BATHROOM. PATIENT IS PRETTY STABLE IN GAIT. TOOK PICTURE OF PATIENTS WOUND ON BUTTOCKS EVEN THOUGH SKIN IS INTACT. PATIENT'S CENTRAL LINE WAS SATURATING WITH BLOOD. PATIENT ALSO CAME TO FLOOR WITH OUT DRESSING ON IT. CLEANED UP SITE AND PUT NEW DRESSING ON IT. WILL CONTINUE TO MONITOR.
--- NOTE | 2017-06-28 14:40 | NUR ---
NOTE: PATIENT IS ASKING TO GO OUT AND SMOKE. HAD PATIENT SIGNS PAPER FOR SMOKING CESSATION. PATIENT WAS THEN DISCONNECTED FROM IV AND TAKEN OUT TO SMOKE.
[2017-06-28] MEDS ORDERED: ACETAMINOPHEN 325 MG TABLET PO PRN (15:45)
[2017-06-28] MEDS ORDERED: cloNIDine HCL 0.1 MG TABLET PO PRN (15:45)
[2017-06-28 16:32] VITALS: BP_SYST 141
--- NOTE | 2017-06-28 19:10 | NUR ---
CLOSING NOTE: GAVE REPORT TO TELEMARKETING SALES REPRESENTATIVE NURSE. PATIENT WAS SITTING IN BED TALKING ON PHONE. PATIENT WAS NOT COMPLAINING OF PAIN OR SHORTNESS OF BREATH. PATIENT IS ON ROOM AIR. PATIENT HAS FLUIDS INFUSING INTO LEFT AC. PATIENT WAS ASKING TO GO OUT TO SMOKE. LET MANAGER MONITORING KNOW AND TOLD PATIENT THAT MANAGER MONITORING WILL COME TO TAKE HER. PATIENT'S FEMORAL CENTRAL LINE IS STILL BLEEDING A LITTLE. SHOWED TO TELEMARKETING SALES REPRESENTATIVE NURSE AND SAID SHE WOULD CHANGE IT LATER. PATIENT HAS SCD'S AT BEDSIDE BUT PATIENT DOESNT WANT THEM ON UNTIL SHE COMES BACK FROM SMOKING. BED ALARM IS ON AND CALL LIGHT IS IN REACH. WILL CONTINUE TO MONITOR.
--- NOTE | 2017-06-28 19:20 | NUR ---
OPENING NOTES RECEIVED PATIENT IN BED AWAKE WATCHING TV. DENIES ANY PAIN AT THIS TIME. RESPIRATION EVEN NONLABORED ON ROOM AIR. IVF INFUSING ORDERED VIA RT AC PERIPHERAL LINE. RT FEMORAL CENTRAL LINE WITH BLOODY DRESSING MODERATE AMOUNT. PLAN OF CARE REVIEWED WITH PATIENT. PATIENT REQUESTING DIAPER USE. EXPLAINED TO PATIENT PER HOSPITAL POLICY WE DONT ENCOURAGE USING DIAPER. BED SIDE COMMODE OFFERED AND PATIENT AGREED. PLACED COMMODE AT PATIENT BEDSIDE.
--- NOTE | 2017-06-28 19:35 | NUR ---
OUT TO SMOKE PATIENT OUT OF ROOM TO SMOKE. PATIENT ACCOMPANIED BY PAINTER ASSISTANT.
[2017-06-28 20:22] VITALS: BP_SYST 135
[2017-06-28] MEDS: HYDROCORTISONE 10 MG TABLET (CORTEF) PO SCH (20:24)
[2017-06-28] MEDS: DULoxetine HCL 30 MG CAPSULE.DR (CYMBALTA) PO SCH (20:25)
[2017-06-28] MEDS: traZODone HCL 50 MG TABLET (DESYREL) PO SCH (20:25)
[2017-06-28] MEDS: GABAPENTIN 100 MG CAPSULE PO SCH (20:26)
[2017-06-28] MEDS: clonazePAM 0.5 MG TABLET PO SCH (20:26)
[2017-06-28] MEDS: TEMAZEPAM 15 MG CAPSULE PO SCH (20:27)
[2017-06-28] MEDS: QUEtiapine FUMARATE 100 MG TABLET PO SCH (20:28)
[2017-06-28] MEDS: THORAZINE (chlorproMAZINE) 25 MG TAB PO SCH (20:29)
[2017-06-28] MEDS: METHOCARBAMOL 500 MG TABLET PO SCH (20:32)
--- NOTE | 2017-06-28 20:45 | NUR ---
MED PASS/CENTRAL LINE CARE DUE MEDICATIONS GIVEN. ADVISED PATIENT NOT TO GET OUT OF BED BY HERSELF TO PREVENT FALL SECONDARY TO AT RISK FOR FALL MEDICATIONS. BED ALARM ACTIVATED. PLACED CALL LIGHT WITHIN EASY REACH. PATIENT VERBALIZES UNDERSTANDING. RT FEMORAL CENTRAL LINE DRESSING CHANGED.
--- NOTE | 2017-06-28 23:00 | NUR ---
ROUNDS PATIENT RESTING IN BED ASLEEP. BREATHING UNLABORED ON ROOM AIR. BED ALARM ON. CALL LIGHT WITHIN REACH.
--- NOTE | 2017-06-29 01:59 | NUR ---
ROUNDS PATIENT ASLEEP DURING ROUNDS. BREATHING UNLABORED. NO DISTRESS NOTED. BED IN LOWEST LOCKED POSITION. ALARM ON. CALL LIGHT WITHIN EASY REACH.
--- NOTE | 2017-06-29 04:15 | NUR ---
ROUNDS RESTING/ASLEEP IN BED. BREATHING CALM/UNLABORED. CALL LIGHT WITHIN REACH.
[2017-06-29 05:33] VITALS: BP_SYST 142
--- NOTE | 2017-06-29 05:47 | NUR ---
OOB PATIENT AWAKE ASSISTED OUT OF BED TO BEDSIDE COMMODE. DENIES PAIN. NO SOB NOTED. RT FEMORAL CENTRAL LINE DRESSING DRY NO BLEEDING TO SITE NOTED THIS TIME.
[2017-06-29] MEDS: LEVOTHYROXINE SODIUM 0.15 MG TABLET PO SCH (06:23)
--- NOTE | 2017-06-29 06:42 | NUR ---
CLOSING NOTES PATIENT RESTING IN BED. NOT IN ANY FORM OF DISTRESS. CALL LIGHT WITHIN EASY REACH. SCD'S IN PLACED. BED ALARM ON.
--- NOTE | 2017-06-29 08:44 | NUR ---
OPENING NOTE REPORT IS RECEIVED FROM LAW TUTOR NURSE AND CARE IS ENDORSED OVER TO MYSELF. PT IS RECEIVED AWAKE, ALERT, AND ORIENTED X4. MORNING VS ARE STABLE BUT BP IS ELEVATED. WHITE BOARD IS UPDATED WITH CURRENT INFORMATION AND PLAN OF CARE IS DISCUSSED. PT REPORTED HAVING BM THIS MORNING. MORNING MEDICATIONS WERE GIVEN BY MOUTH AND TOLERATED WELL. PT REQUESTED PAIN MEDICATION FOR ABDOMINAL PAIN. PT REFUSED TO HAVE BED ALARM AND WAS ADVISED OF USING CALL LIGHT SHOULD SHE WANT TO GET OUT OF BED. PT VERBALIZED UNDERSTANDING. CURRENT NEEDS ARE MET. BED IS AT LOWEST POSITION, CALL LIGHT WITHIN REACH, TWO SIDE RAILS UP. WILL CONTINUE TO MONITOR.
[2017-06-29 08:47] VITALS: BP_SYST 156
[2017-06-29] MEDS: clonazePAM 0.5 MG TABLET PO SCH ×3 (08:58→21:06)
[2017-06-29] MEDS: GABAPENTIN 100 MG CAPSULE PO SCH ×3 (08:58→21:06)
[2017-06-29] MEDS: OMEPRAZOLE 20 MG CAPSULE.DR (PriLOSEC) PO SCH (08:58)
[2017-06-29] MEDS: DULoxetine HCL 30 MG CAPSULE.DR (CYMBALTA) PO SCH ×2 (08:59→21:06)
[2017-06-29] MEDS: METHOCARBAMOL 500 MG TABLET PO SCH ×2 (08:59→21:19)
[2017-06-29] MEDS: buPROPion HCL 150 MG XL TAB PO SCH (08:59)
[2017-06-29] MEDS ORDERED: DIGOXIN 0.125 MG TABLET PO SCH (09:00)
[2017-06-29] MEDS: LISINOPRIL 10 MG TABLET (PRINIVIL) PO SCH (09:00)
[2017-06-29] MEDS: OXYCODONE/ACETAMINOPHEN 5-325 TABLET PO PRN ×2 (09:00→14:36)
[2017-06-29] MEDS ORDERED: levETIRAcetam 500 MG TABLET PO SCH (09:00)
[2017-06-29] MEDS: THORAZINE (chlorproMAZINE) 25 MG TAB PO SCH ×2 (09:04→21:01)
--- NOTE | 2017-06-29 10:47 | NUR ---
ROUNDS PT IS SLEEPING BUT IS EASILY AWAKEN. NO SIGNS OR SYMPTOMS OF DISTRESS OR SOB NOTED. PT DENIES ANY PAIN. CURRENT NEEDS ARE MET. BED IS AT LOWEST POSITION, CALL LIGHT WITHIN REACH, TWO SIDE RAILS UP. WILL CONTINUE TO MONITOR.
[2017-06-29 11:26] VITALS: BP_SYST 97
--- NOTE | 2017-06-29 12:04 | NUR ---
ROUNDS PT IS AWAKE AND ALERT, WATCHING TV. LUNCH IS BROUGHT TO BEDSIDE. NO SIGNS OR SYMPTOMS OF DISTRESS OR SOB. CURRENT NEEDS ARE MET. BED IS AT LOWEST POSITION, CALL LIGHT WITHIN REACH, TWO SIDE RAILS UP. WILL CONTINUE TO MONITOR.
--- NOTE | 2017-06-29 14:32 | NUR ---
ROUNDS PT IS SLEEPING BUT IS EASILY AWAKEN. NO SIGNS OR SYMPTOMS OF DISTRESS OR SOB NOTED. PT IS COMPLAINING OF PAIN IN ABDOMINAL AREA AND WAS GIVEN PRN NORCO.. CURRENT NEEDS ARE MET. BED IS AT LOWEST POSITION, CALL LIGHT WITHIN REACH, TWO SIDE RAILS UP. PT REFUSED TO HAVE BED ALARM TURNED ON. PT ADVISED OF IMPORTANCE OF USING CALL LIGHT IF SHE WANTS TO GET OUT OF BED. PT VERBALIZED UNDERSTANDING. WILL CONTINUE TO MONITOR.
--- NOTE | 2017-06-29 14:39 | NUR ---
DR. SURESH ROUNDING
[2017-06-29 16:59] VITALS: BP_SYST 82
--- NOTE | 2017-06-29 18:35 | NUR ---
CLOSING NOTE PT IS AWAKE AND ALERT, WATCHING TV. NO SIGNS OR SYMPTOMS OF DISTRESS OR SOB NOTED. PT DENIES ANY PAIN. CURRENT NEEDS ARE MET. BED IS AT LOWEST POSITION, CALL LIGHT WITHIN REACH, TWO SIDE RAILS UP. WILL CONTINUE TO MONITOR UNTIL CARE AND REPORT IS GIVEN TO CERAMIC CAPACITOR PROCESSOR NURSE.
[2017-06-29 19:50] VITALS: BP_SYST 130; BP_SYST 177
--- NOTE | 2017-06-29 19:55 | NUR ---
INITIAL NOTE AT INITIAL ASSESSMENT, PATIENT IS RESTING IN BED, STABLE, NO SIGNS OF RESPIRATORY DISTRESS. PLAN OF CARE FOR THE EVENING IS COMMUNICATED WITH THE PATIENT. PATIENT VERBALIZES NO PAIN. IV IS SECURE, AND INTACT, CENTRAL LINE IS SECURED AND INTACT. COMMODE IS AT BEDSIDE. PATIENT REFUSES SEIZURE PRECAUTION PADS. PATIENT REFUSES SCDS AND VERBALIZES THAT "THEY HURT THE NODULES ON MY LEGS ON COMPRESSION", HOWEVER, PATIENT IS AMBULATORY. CALL LIGHT- TEACH BACK IS SUCCESSFUL. BED IS LOCKED, ALARMED, AND AT THE LOWEST LEVEL.
[2017-06-29] MEDS: ONDANSETRON 4 MG ODT TAB PO PRN (21:01)
--- NOTE | 2017-06-29 21:01 | NUR ---
NAUSEA NOTE PATIENT IS THROWING UP CLEAR LIQUIDS IN VOMIT BAG, STABLE, NO SIGNS OF RESPIRATORY DISTRESS. PRN MEDICATION IS GIVEN FOR NAUSEA, HOB RAISED TO 45 DEGREES. WILL CONTINUE TO MONITOR FOR NAUSEA. CALL LIGHT WITHIN REACH. BED IS LOCKED, ALARMED, AND AT THE LOWEST LEVEL.
[2017-06-29] MEDS: QUEtiapine FUMARATE 100 MG TABLET PO SCH (21:06)
[2017-06-29] MEDS: HYDROCORTISONE 10 MG TABLET (CORTEF) PO SCH (21:06)
[2017-06-29] MEDS: traZODone HCL 50 MG TABLET (DESYREL) PO SCH (21:06)
[2017-06-29] MEDS: TEMAZEPAM 15 MG CAPSULE PO SCH (21:07)
--- NOTE | 2017-06-29 23:00 | NUR ---
NOTE PATIENT IS SLEEPING, STABLE, NO SIGNS OF RESPIRATORY DISTRESS. CALL LIGHT WITHIN REACH. BED IS LOCKED, ALARMED, AND AT THE LOWEST LEVEL.
--- NOTE | 2017-06-30 00:54 | NUR ---
NOTE PATIENT IS SLEEPING, STABLE, NO SIGNS OF RESPIRATORY DISTRESS. CALL LIGHT WITHIN REACH. BED IS LOCKED, ALARMED, AND AT THE LOWEST LEVEL.
--- NOTE | 2017-06-30 02:26 | NUR ---
NOTE PATIENT IS SLEEPING, STABLE, NO SIGNS OF RESPIRATORY DISTRESS. CALL LIGHT WITHIN REACH. BED IS LOCKED, ALARMED, AND AT THE LOWEST LEVEL.
[2017-06-30] MEDS: ONDANSETRON 4 MG ODT TAB PO PRN (04:21)
--- NOTE | 2017-06-30 04:21 | NUR ---
NAUSEA NOTE PATIENT IS THROWING UP DARK LIQUID IN VOMIT BAG, STABLE, NO SIGNS OF RESPIRATORY DISTRESS. SHE VERBALIZES NO INCREASED PAIN. PRN MEDICATION IS GIVEN FOR NAUSEA, HOB RAISED TO 45 DEGREES. WILL CONTINUE TO MONITOR FOR NAUSEA. CALL LIGHT WITHIN REACH. BED IS LOCKED, ALARMED, AND AT THE LOWEST LEVEL.
--- NOTE | 2017-06-30 05:13 | NUR ---
NOTE PATIENT IS SLEEPING, STABLE, NO SIGNS OF RESPIRATORY DISTRESS. CALL LIGHT WITHIN REACH. BED IS LOCKED, ALARMED, AND AT THE LOWEST LEVEL.
--- NOTE | 2017-06-30 06:40 | NUR ---
CLOSING NOTE PATIENT IS RESTING IN BED, STABLE, NO SIGNS OF RESPIRATORY DISTRESS. PATIENT'S EMESIS IS NOW DARK IN COLOR, MD WILL BE MADE AWARE. PATIENT VERBALIZES NO ADDITIONAL PAIN AT THIS TIME. CENTRAL LINE IS SECURED AND INTACT. PATIENT REFUSES SEIZURE PRECAUTION PADS. CALL LIGHT WITHIN REACH. BED IS LOCKED, ALARMED, AND AT THE LOWEST LEVEL. WILL CONTINUE TO MONITOR UNTIL SHIFT REPORT IS GIVEN AT BEDSIDE TO AM NURSE.
--- NOTE | 2017-06-30 06:41 | NUR ---
CONSULT CALLED DR. LI PAGED DUE TO CONCERNS OF PATIENT VOMITING THROUGHOUT THE NIGHT, AND THAT ALL HER MEDICATIONS INCLUDING FOR PRN NAUSEA IS PO, HER EMESIS HAS NOW CHANGED TO DARK IN COLOR. HE HAS ASKED TO CONSULT DR. MESSER AT THIS TIME. DR. JOHN WHO IS COVERING FOR DR. MESSER WILL BE PAGED IMMEDIATELY. CONSULT ORDER IS READ BACK, VERIFIED, AND ENTERED.
[2017-06-30] MEDS: LEVOTHYROXINE SODIUM 0.15 MG TABLET PO SCH (07:00)
[2017-06-30] MEDS ORDERED: ONDANSETRON HCL 4 MG/2 ML VIAL IM PRN (07:00)
--- NOTE | 2017-06-30 07:15 | NUR ---
COMMUNICATION WITH DR. JOE JOHN (COVERING FOR CONSULT DR. MESSER) HAS BEEN MADE AWARE OF CONCERNS OF PATIENT VOMITING THROUGHOUT THE NIGHT, STARTING WITH CLEAR LIQUID EMESIS AND THIS MORNING HER EMESIS IS NOW DARK. DR. JOHN HAS VERBALIZED TO CHANGE ALL HER MEDICATIONS FROM PO TO IV, AND TO ASK PHARMACY FOR EQUIVALENCY IF NECESSARY, HE VERBALIZED THAT IF MEDICATION DOES NOT CONVERT TO IV VERSION, TO KEEP MEDICATION IS. HE HAS ALSO REQUESTED TO SWITCH TO COMPAZINE PRN FOR NAUSEA FOR THE PATIENT, AND FOR PHARMACY TO BE PAGED TO DOSE EQUIVALENCY FOR PATIENT'S PREVIOUS ZOFRAN PRN ORDER. (PHARMACY HAS VERIFIED FOR COMPAZINE 5 MG IVP Q6HRS PRN FOR NAUSEA). ALL ORDERS WERE READ BACK, VERIFIED, AND ENTERED FOR PHARMACY. AM LARY HERNANDEZ ALSO ENDORSED WITH MD DIRECTIONS. CHARGE NURSE IS AWARE.
--- NOTE | 2017-06-30 07:17 | NUR ---
GI consult called: for Dr. Contreras (Dr. Dietrich comfort station supervisor), regarding N/V, ordered by Dr. Gonzales, spoke with Brinda.
[2017-06-30] MEDS ORDERED: COMMUNICATION ORDER XX PRN (07:50)
--- NOTE | 2017-06-30 08:00 | NUR ---
OPENING NOTE PT IS VOMITING. DR. JOHN AWARE OF PT'S VOMITING. PT IS ON RA, NO SOB NOTED. PT REFUSES TO HAVE PADS ON SIDE RAILS FOR SEIZURE PRECAUTIONS. PT REFUSES SCD'S. DR. JOHN GAVE ORDER TO SCHOOL ADMISSIONS REPRESENTATIVE NURSE TO CHANGE PO MEDICATIONS TO IV. PT IS AWARE. SAFETY MEASURES IN PLACE, BED TO LOWEST POSITION, BED ALARM IS ON, SIDE RAILS ARE UPX3, CALL LIGHT WITHIN REACH. WILL CONTINUE TO MONITOR.
[2017-06-30 08:10] VITALS: BP_SYST 154
[2017-06-30] MEDS: PROCHLORPERAZINE EDISYLATE 10 MG/2 ML VIAL IVP PRN ×2 (08:11→14:14)
[2017-06-30] MEDS: METHOCARBAMOL 500 MG TABLET PO SCH ×2 (09:58→21:10)
[2017-06-30] MEDS: OMEPRAZOLE 20 MG CAPSULE.DR (PriLOSEC) PO SCH (09:58)
[2017-06-30] MEDS: THORAZINE (chlorproMAZINE) 25 MG TAB PO SCH ×2 (09:58→21:11)
[2017-06-30] MEDS: DULoxetine HCL 30 MG CAPSULE.DR (CYMBALTA) PO SCH ×2 (09:58→21:10)
[2017-06-30] MEDS: buPROPion HCL 150 MG XL TAB PO SCH (09:58)
[2017-06-30] MEDS: GABAPENTIN 100 MG CAPSULE PO SCH ×3 (09:58→21:10)
[2017-06-30] MEDS: clonazePAM 0.5 MG TABLET PO SCH ×3 (09:59→21:11)
[2017-06-30] MEDS: levETIRAcetam 1,000 MG IV BAG 100 ML IV SCH (10:00)
[2017-06-30] MEDS: LEVOTHYROXINE SODIUM 0.1 MG VIAL IVP SCH (10:00)
--- NOTE | 2017-06-30 10:00 | NUR ---
ROUNDS PT IS NOT VOMITING. PRN COMPAZINE WAS GIVEN AT 0811, WAS HELPFUL. PT WAS ABLE TO TAKE ORAL MEDICATION. PT DENIES ANY NAUSEA. PT IS REQUESTING TO GO OUT TO SMOKE. INFORMED PT DUE TO VOMITING, TO WAIT FOR SAFETY REASONS. PT VERBALIZES UNDERSTANDING. NO DISTRESS NOTED. ALL NEEDS MET AT THIS TIME. PT REFUSES PADDED RAILS, PT STATES THEY GET IN THE WAY. INFORMED PT IT IS FOR HER SAFETY. PT CONTINUES TO REFUSE PADS. SAFETY MEASURES IN PLACE, BED TO LOWEST POSITION, BED ALARM IS ON, SIDE RAILS ARE UPX3, CALL LIGHT WITHIN REACH. WILL CONTINUE TO MONITOR.
[2017-06-30] MEDS: DIGOXIN 0.5 MG/2 ML AMP IVP SCH (10:01)
[2017-06-30] MEDS: LISINOPRIL 10 MG TABLET (PRINIVIL) PO SCH (10:13)
--- NOTE | 2017-06-30 12:15 | NUR ---
ROUNDS PT DENIES ANY NAUSEA OR VOMITING. PT IS WATCHING TV. NO SOB NOTED. NO DISTRESS NOTED. SAFETY MEASURES IN PLACE, BED TO LOWEST POSITION, BED ALARM IS ON, SIDE RAILS ARE UPX3, CALL LIGHT WITHIN REACH. WILL CONTINUE TO MONITOR.
--- NOTE | 2017-06-30 13:10 | NUR ---
SMOKE NURSE TOOK PT TO SMOKE. NO DISTRESS NOTED WHILE OUTSIDE SMOKING. PT IS BACK IN BED AND WANTS TO REST. PT DENIES ANY N/V. SAFETY MEASURES IN PLACE, BED TO LOWEST POSITION, BED ALARM IS ON, SIDE RAILS ARE UPX3, CALL LIGHT WITHIN REACH. WILL CONTINUE TO MONITOR.
--- NOTE | 2017-06-30 14:19 | NUR ---
ROUNDS PT REQUESTED TO TAKE COMPAZINE WITH PO MEDICATION. PT DENIES ANY VOMITING. NO SOB OR DISTRESS NOTED. SAFETY MEASURES BED IS TO LOWEST POSITION, BED ALARM IS ON, SIDE RIALS UPX3, CALL LIGHT WITHIN REACH. WILL CONTINUE TO MONITOR.
[2017-06-30 15:25] VITALS: BP_SYST 117
--- NOTE | 2017-06-30 16:03 | NUR ---
ROUNDS DR. SURESH AT BEDSIDE WITH PT.
--- NOTE | 2017-06-30 16:08 | NUR ---
ROUNDS PT DENIES ANY N/V. PT ON RA, NO SOB NOTED. ALL NEEDS MET AT THIS TIME. SAFETY MEASURES BED IS TO LOWEST POSITION, BED ALARM IS ON, SIDE RIALS UPX3, CALL LIGHT WITHIN REACH. WILL CONTINUE TO MONITOR.
[2017-06-30] MEDS: KCL 20 mEq in 0.45% NS 1000 mL 1,000 ML IV SCH (18:40)
--- NOTE | 2017-06-30 18:55 | NUR ---
CLOSING NOTE PT IS IN BED WATCHING TV. DENIES ANY N/V. PT IS ON RA TOLOERATING WELL. NO SOB NOTED. PT REFUSES PADDED RAILS FOR SEIZURE PRECAUTIONS. PT REFUSES SCD'S. PT HAS IV INFUSING AT 100ML/HR. SAFETY MEASURES IN PLACE, BED TO LOWEST POSITION, BED ALARM IS ON, SIDE RAILS ARE UPX3, CALL LIGHT WITHIN REACH. WILL ENDORSE TO ADMISSIONS RECRUITER NURSE.
--- NOTE | 2017-06-30 19:45 | NUR ---
INITIAL NOTE PATIENT IS RESTING IN BED, STABLE, NO SIGNS OF RESPIRATORY DISTRESS. PATIENT DENIES ANY NAUSEA OR PAIN. PLAN OF CARE FOR THE EVENING IS COMMUNICATED WITH THE PATIENT. CENTRAL LINE IS SECURED AND INTACT. COMMODE IS AT BEDSIDE. PATIENT REFUSES SEIZURE PRECAUTION PADS AND SCDS DESPITE ATTEMPTS OF SAFETY EDUCATION. PATIENT IS AMBULATORY. CALL LIGHT- TEACH BACK IS SUCCESSFUL. BED IS LOCKED, ALARMED, AND AT THE LOWEST LEVEL.
[2017-06-30 19:50] VITALS: BP_SYST 11
[2017-06-30] MEDS: QUEtiapine FUMARATE 100 MG TABLET PO SCH (21:10)
[2017-06-30] MEDS: HYDROCORTISONE SOD SUCC 100 MG/2 ML VIAL IVP SCH (21:10)
[2017-06-30] MEDS: traZODone HCL 50 MG TABLET (DESYREL) PO SCH (21:10)
[2017-06-30] MEDS: TEMAZEPAM 15 MG CAPSULE PO SCH (21:11)
--- NOTE | 2017-06-30 21:36 | NUR ---
NOTE PATIENT IS RESTING IN BED, STABLE, NO SIGNS OF RESPIRATORY DISTRESS. PATIENT ABLE TO TAKE PO MEDS WITHOUT FEELING OF NAUSEA. CALL LIGHT WITHIN REACH. BED IS LOCKED, ALARMED, AND AT THE LOWEST LEVEL.
--- NOTE | 2017-06-30 23:35 | NUR ---
NOTE PATIENT IS SLEEPING, STABLE, NO SIGNS OF RESPIRATORY DISTRESS. PATIENT DENIES ANY NAUSEA OR PAIN. CALL LIGHT WITHIN REACH. BED IS LOCKED, ALARMED, AND AT THE LOWEST LEVEL.
[2017-07-01 01:19] VITALS: BP_SYST 101
[2017-07-01] MEDS: KCL 20 mEq in 0.45% NS 1000 mL 1,000 ML IV SCH ×2 (02:30→12:17)
--- NOTE | 2017-07-01 04:26 | NUR ---
NOTE PATIENT IS ASSISTED TO THE RESTROOM, STABLE, NO SIGNS OF RESPIRATORY DISTRESS. PATIENT'S GAIT IS WEAK. PATIENT DENIES ANY NAUSEA OR PAIN. CALL LIGHT WITHIN REACH. BED IS LOCKED, ALARMED, AND AT THE LOWEST LEVEL.
--- NOTE | 2017-07-01 06:25 | NUR ---
CLOSING NOTE PATIENT IS SLEEPING, STABLE, NO SIGNS OF RESPIRATORY DISTRESS. PATIENT HAS NOT VOMITED THROUGHOUT THE NIGHT, NOR HAS SHE COMPLAINED OF ANY NAUSEA. SHE HAS BEEN ON NPO SINCE 12 AM. CENTRAL LINE IS SECURED AND INTACT, RUNNING IVF ORDERED. COMMODE IS AT BEDSIDE. CALL LIGHT WITHIN REACH. BED IS LOCKED, ALARMED, AND AT THE LOWEST LEVEL.
--- NOTE | 2017-07-01 07:15 | NUR ---
Initial Note Received report from the night nurse Randal. Pt is out of the unit having a EGD as per the night nurse. Will assess pt when she gets back to unit.
[2017-07-01 07:29] LABS: PROTHROMBIN TIME 10.1 SECS (9.5-12.5)
[2017-07-01] MEDS: fentaNYL CITRATE/PF 100 MCG/2 ML AMP ONE ×4 (07:44→07:57)
[2017-07-01] MEDS: MIDAZOLAM HCL 5 MG/5 ML VIAL ONE ×4 (07:44→07:53)
[2017-07-01 07:51] LABS: ALBUMIN 2.6 g/dL (3.4-4.8); CALCIUM 9.1 mg/dL (8.4-11.0); CREATININE 0.56 mg/dL (0.55-1.30); TOTAL BILIRUBIN 0.3 mg/dL (0.0-1.0)
--- NOTE | 2017-07-01 08:42 | NUR ---
Pt back to the unit. Pt drowsy and in stable condition
[2017-07-01 08:50] VITALS: BP_SYST 109
[2017-07-01] MEDS: THORAZINE (chlorproMAZINE) 25 MG TAB PO SCH ×2 (09:26→21:46)
[2017-07-01] MEDS: buPROPion HCL 150 MG XL TAB PO SCH (09:27)
[2017-07-01] MEDS: DULoxetine HCL 30 MG CAPSULE.DR (CYMBALTA) PO SCH ×2 (09:30→21:46)
[2017-07-01] MEDS: clonazePAM 0.5 MG TABLET PO SCH ×3 (09:30→21:46)
[2017-07-01] MEDS: LISINOPRIL 10 MG TABLET (PRINIVIL) PO SCH (09:30)
[2017-07-01] MEDS: OMEPRAZOLE 20 MG CAPSULE.DR (PriLOSEC) PO SCH (09:31)
[2017-07-01] MEDS: GABAPENTIN 100 MG CAPSULE PO SCH ×3 (09:31→21:45)
[2017-07-01] MEDS: LEVOTHYROXINE SODIUM 0.1 MG VIAL IVP SCH (09:32)
[2017-07-01] MEDS: METHOCARBAMOL 500 MG TABLET PO SCH ×2 (09:37→21:46)
[2017-07-01] MEDS: DIGOXIN 0.5 MG/2 ML AMP IVP SCH (09:40)
[2017-07-01 09:45] LABS: BASOPHILS # (AUTO) 0.1 K/uL (0.0-0.2); BASOPHILS % (AUTO) 0.8 % (0.0-2.0); EOSINOPHILS # (AUTO) 0.2 K/uL (0.0-0.4); HEMATOCRIT 34.7 % (36-48); HEMOGLOBIN 11.2 g/dL (12.0-16.0); LYMPHOCYTES # (AUTO) 1.1 K/uL (1.0-5.5); LYMPHOCYTES % (AUTO) 14.3 % (20.5-51.5); MEAN CORPUSCULAR HEMOGLOBIN 27 pg (27-31); MEAN CORPUSCULAR HGB CONC 32 % (32-36); MEAN CORPUSCULAR VOLUME 83 fL (79.0-98.0); MONOCYTES # (AUTO) 0.4 K/uL (0.0-1.0); MONOCYTES % (AUTO) 4.8 % (1.7-9.3); NEUTROPHILS # (AUTO) 6.1 K/uL (1.8-7.7); NEUTROPHILS % (AUTO) 78.1 % (40.0-70.0); PLATELET COUNT (AUTO) 135 K/uL (130-430); RED BLOOD CELL COUNT(AUTO) 4.19 MIL/uL (4.2-6.2); RED CELL DISTRIBUTION WIDTH 21.9 % (9.0-15.0)
[2017-07-01] MEDS: levETIRAcetam 1,000 MG IV BAG 100 ML IV SCH (09:45)
[2017-07-01 09:51] LABS: WHITE BLOOD COUNT (AUTO) 7.9 K/uL (4.8-10.8)
[2017-07-01 11:29] VITALS: BP_SYST 127
--- NOTE | 2017-07-01 11:30 | NUR ---
RN Rounds Pt resting and does not display any sign of distress at this time. Bed is at lowest position with bed alarm on. Call light within reach.
[2017-07-01 15:27] VITALS: BP_SYST 127
--- NOTE | 2017-07-01 15:30 | NUR ---
RN Rounds Pt sleeping and does not show any sign of distress at this time. Bed is at lowest position with bed alarm on. Call light within reach.
--- NOTE | 2017-07-01 18:10 | NUR ---
Closing Note Pt AOX4. No sign of distress noted at this time. Bed is at lowest position with bed alarm on. Call light within reach. Pt had EGD done this morning. Addendum: 07/01/17 at 1854 by Yaya Gasca RN Pt's K 3.0 Pt is already on Kcl 20 meq 1/2 NS 100 ml/h
--- NOTE | 2017-07-01 19:20 | NUR ---
OPENING NOTE Patient back to bathroom, ambulated with news assistant. No acute distress. Respiration even and unlabored. AAO x 4. Denied of pain at this time. Skin warm and dry to touch. Central line intact to right femoral, on KCl 20mEq with 1/2NS at 100ml/hr, infusing well. Discussed the safety issue, use call light when need help, and plan of care, verbally understanding. Safety measure maintained. Bed locked in low position, side rails up, bed alarm on. Call light within reached. Will continue to monitor.
[2017-07-01 19:50] VITALS: BP_SYST 103
[2017-07-01] MEDS: TEMAZEPAM 15 MG CAPSULE PO SCH ×2 (21:00→21:48)
--- NOTE | 2017-07-01 21:40 | NUR ---
DR. CHAPMAN VISITED Reported to Dr. Chapman, patient has diarrhea with black color. K=3.0 today, currently on KCl 20mEq with 1/2NS at 100ml/hr. with order.
[2017-07-01] MEDS: HYDROCORTISONE SOD SUCC 100 MG/2 ML VIAL IVP SCH (21:43)
[2017-07-01] MEDS ORDERED: POTASSIUM CHLORIDE 40 MEQ in NS 250 ML IV ONE (21:45)
[2017-07-01] MEDS: QUEtiapine FUMARATE 100 MG TABLET PO SCH (21:46)
[2017-07-01] MEDS: traZODone HCL 50 MG TABLET (DESYREL) PO SCH (21:55)
[2017-07-01] MEDS ORDERED: KCL 40 mEq in 100 mL (PREMIX) 100 ML IV ONE (22:17)
--- NOTE | 2017-07-01 23:00 | NUR ---
ROUND Patient resting on the bed with eyes closed. No acute distress. Central line intact, infusing KCl 40mEq well. Safety measure maintained. Bed locked in low position, side rails up, bed alarm on. Call light within reached. Continue to monitor.
--- NOTE | 2017-07-02 00:54 | NUR ---
ROUND Patient sleeping at this time. No acute distress. Respiration even and unlabored. Central line intact, infusing KCl 40mEq well. Safety measure maintained. Bed locked in low position, side rails up, bed alarm on. Call light within reached. Continue to monitor.
[2017-07-02 01:04] VITALS: BP_SYST 115
--- NOTE | 2017-07-02 02:43 | NUR ---
ROUND Patient resting on the bed with eyes closed. No acute distress. Central line intact, IVF infusing well. Safety measure maintained. Call light within reached. Bed locked in low position, side rails up, bed alarm on. Continue to monitor.
--- NOTE | 2017-07-02 04:20 | NUR ---
ROUND Patient sleeping on the bed. No acute distress. Respiration even and unlabored. Central line intact, IVF infusing well. Safety measure maintained. Bed locked in low position, side rails up, bed alarm on. Call light within reached. Continue to monitor.
[2017-07-02] MEDS: KCL 20 mEq in 0.45% NS 1000 mL 1,000 ML IV SCH ×3 (04:33→18:28)
--- NOTE | 2017-07-02 06:58 | NUR ---
CLOSING NOTE Patient resting on the bed with eyes closed. No acute distress. Respiration even and unlabored. Central line intact to right femoral, on KCl 20mEq with 1/2NS at 100ml/hr, infusing well. All need met. Hourly rounding during shift. Safety measure maintained. Bed locked in low position, side rails up, bed alarm on. Call light within reached. Will endorse to morning shift nurse.
--- NOTE | 2017-07-02 07:15 | NUR ---
Initial Note Received report from the night nurse Bowen. Pt AOX4. No sign of distress noted at this time. Bed is at lowest position with bed alarm on. Call light within reach.
[2017-07-02 07:29] LABS: BASOPHILS # (AUTO) 0.1 K/uL (0.0-0.2); BASOPHILS % (AUTO) 0.9 % (0.0-2.0); EOSINOPHILS # (AUTO) 0.1 K/uL (0.0-0.4); EOSINOPHILS % (AUTO) 0.7 % (0.0-4.0); HEMATOCRIT 33.9 % (36-48); HEMOGLOBIN 11.2 g/dL (12.0-16.0); LYMPHOCYTES # (AUTO) 1.3 K/uL (1.0-5.5); LYMPHOCYTES % (AUTO) 13.6 % (20.5-51.5); MEAN CORPUSCULAR HEMOGLOBIN 27 pg (27-31); MEAN CORPUSCULAR HGB CONC 33 % (32-36); MEAN CORPUSCULAR VOLUME 83 fL (79.0-98.0); MONOCYTES # (AUTO) 0.2 K/uL (0.0-1.0); MONOCYTES % (AUTO) 2.5 % (1.7-9.3); NEUTROPHILS % (AUTO) 82.3 % (40.0-70.0); PLATELET COUNT (AUTO) 128 K/uL (130-430); RED BLOOD CELL COUNT(AUTO) 4.08 MIL/uL (4.2-6.2); RED CELL DISTRIBUTION WIDTH 21.6 % (9.0-15.0); WHITE BLOOD COUNT (AUTO) 9.7 K/uL (4.8-10.8)
[2017-07-02 07:34] LABS: CALCIUM 8.5 mg/dL (8.4-11.0); CREATININE 0.53 mg/dL (0.55-1.30)
[2017-07-02 07:35] VITALS: BP_SYST 137
[2017-07-02] MEDS: levETIRAcetam 1,000 MG IV BAG 100 ML IV SCH (09:12)
[2017-07-02] MEDS: LEVOTHYROXINE SODIUM 0.1 MG VIAL IVP SCH (09:14)
[2017-07-02] MEDS: OMEPRAZOLE 20 MG CAPSULE.DR (PriLOSEC) PO SCH (09:15)
[2017-07-02] MEDS: GABAPENTIN 100 MG CAPSULE PO SCH ×3 (09:15→22:00)
[2017-07-02] MEDS: clonazePAM 0.5 MG TABLET PO SCH ×3 (09:15→22:01)
[2017-07-02] MEDS: DIGOXIN 0.5 MG/2 ML AMP IVP SCH (09:18)
[2017-07-02] MEDS: METHOCARBAMOL 500 MG TABLET PO SCH ×2 (09:19→22:03)
[2017-07-02] MEDS: LISINOPRIL 10 MG TABLET (PRINIVIL) PO SCH (09:19)
[2017-07-02] MEDS: buPROPion HCL 150 MG XL TAB PO SCH (09:25)
[2017-07-02] MEDS: THORAZINE (chlorproMAZINE) 25 MG TAB PO SCH ×2 (09:25→22:01)
[2017-07-02] MEDS: DULoxetine HCL 30 MG CAPSULE.DR (CYMBALTA) PO SCH ×2 (09:25→22:00)
[2017-07-02 11:26] VITALS: BP_SYST 114
--- NOTE | 2017-07-02 11:27 | NUR ---
RN Rounds Pt resting and does not show any sign of distress at this time. Bed is at lowest position with bed alarm on. Call light within reach.
--- NOTE | 2017-07-02 12:55 | NUR ---
Dietitian Recommendations *Recommend continuing full liquid diet per MD orders. *Recommend advance diet to Soft GI CCHO diet when medically appropriate. Please see Nutritional Assessment for details. ELENITA, RD
--- NOTE | 2017-07-02 14:54 | NUR ---
Pt keep getting up from bed without calling for help Pt is turning off the bed alarm and keep getting up to go to the restroom without calling for help. Instructed pt several times to let us know before getting out of bed to avoid any fall, but pt still not calling for help.
--- NOTE | 2017-07-02 15:28 | NUR ---
Dc Planning: LM to pt.'s partner/Elizabeth Pendleton # [phone] and to # [phone] for dcp info.
[2017-07-02 15:31] VITALS: BP_SYST 112
--- NOTE | 2017-07-02 15:37 | NUR ---
RN Round Pt awake and does not complain of any pain or discomfort. Bed is at lowest position with bed alarm on. Call light within reach.
--- NOTE | 2017-07-02 16:08 | NUR ---
Lock Master ROBYNP contacted Philippe Moura to follow up with pts bed hold. DCP spoke with Estrella who confirmed pts bed (10B) is still on hold. DCP informed pts nurse Yaya
--- NOTE | 2017-07-02 19:10 | NUR ---
Closing Note Pt AOX4. No sing of distress noted at this time. Bed is at lowest position with bed alarm on. Call light within reach.
--- NOTE | 2017-07-02 19:20 | NUR ---
OPENING NOTES PATIENT IN BED SLEEPING. NO ACUTE DISTRESS OR SOB NOTED. BREATHING EVEN AND UNLABORED. IVF RUNNING ORDERED. ALL NEEDS MET. BED IN LOWEST POSITION WITH BED ALARM ON AND CALL LIGHT WITH PATIENT.
[2017-07-02 20:26] VITALS: BP_SYST 113
[2017-07-02] MEDS: TEMAZEPAM 15 MG CAPSULE PO SCH (21:00)
[2017-07-02] MEDS: traZODone HCL 50 MG TABLET (DESYREL) PO SCH (22:00)
[2017-07-02] MEDS: QUEtiapine FUMARATE 100 MG TABLET PO SCH (22:00)
[2017-07-02] MEDS: HYDROCORTISONE SOD SUCC 100 MG/2 ML VIAL IVP SCH (22:00)
--- NOTE | 2017-07-02 22:26 | NUR ---
MEDICATION/ HOLD SLEEPING PILL HELD TEMAZEPAM. PATIENT SLEEPING ALREADY. ALL OTHER MEDICATIONS GIVEN. ORDERED. PATIENT WENT DIRECTLY TO SLEEP AFTER TAKING MEDICATION. IVF RUNNING ORDERED. BED ALARM ON AND CALL LIGHT WITH PATIENT.
--- NOTE | 2017-07-03 00:21 | NUR ---
ROUNDS PATIENT IN BED SLEEPING. BREATHING EVEN AND UNLABORED. NO FACIAL GRIMACING NOTED. ALL NEEDS MET.ED IN LOWEST POSITION WITH BED ALARM ON AND CALL LIGHT WITH PATIENT.
[2017-07-03 01:02] VITALS: BP_SYST 104
[2017-07-03] MEDS: KCL 20 mEq in 0.45% NS 1000 mL 1,000 ML IV SCH ×2 (04:41→15:34)
[2017-07-03] MEDS: OXYCODONE/ACETAMINOPHEN 5-325 TABLET PO PRN (04:42)
--- NOTE | 2017-07-03 04:49 | NUR ---
C/O PAIN IN ABD ASSISTED PATIENT TO RR THEN BACK TO BED. C/O PAIN IN ABD. ADMINISTERED PERCOCET ORDERED. PATIENT TOLERATED WELL. ALL NEEDS MET. BED IN LOWEST POSITION WITH BED ALARM ON AND CALL LIGHT WITH PATIENT.
--- NOTE | 2017-07-03 07:03 | NUR ---
CLOSING NOTES PATIENT IN BED SLEEPING. NO ACUTE DISTRESS NOTED. ALL NEEDS MET. HOURLY AND PRN ROUNDING DONE. WILL ENDORSE TO DAY SHIFT NURSE.
--- NOTE | 2017-07-03 07:05 | NUR ---
PT TRANSFERRED Report given to Viry BARTH at [facility]. Transfer packet with Transfer Orders and Medication Reconciliation form given to EMT with report. Exitcare provided. SD[facility] ID band removed, replaced with ID band with pt's name and . Right femoral line intact and patent covered with clean/dry tegaderm with no s/sx infection/infiltration noted; wanted to continue IVF x3 more days. All belongings sent with patient. Patient left floor via gurney escorted by EMT in no distress. Addendum: 07/03/17 at 1925 by Adilene Roque RN wrong time 1904
--- NOTE | 2017-07-03 07:45 | NUR ---
INITIAL NOTES RECEIVED PATIENT FROM PLUGGER WORKER. PATIENT STABLE. DENIES PAIN. ROOM AIR. NO ACUTE DISTRESS. NO SOB. RESPIRATION EVEN AND UNLABORED. SKIN WARM AND DRY TO TOUCH. FEMORAL LINE INTACT AND PATENT. ALL NEEDS MET. CONT SAFETY/FALL PRECAUTION. BED ALARM ON. BED IN LOW AND LOCKED POSITION. ALL NEEDS MET. ORIENTED PATIENT TO CALL LIGHT AND TO CALL FOR ASSIST. CALL LIGHT IN REACH. CONT TO MONITOR.
[2017-07-03 08:00] VITALS: BP_SYST 129
--- NOTE | 2017-07-03 09:30 | NUR ---
NOTES PATIENT STABLE. ASSISTED PATIENT TO BATHROOM WITH STEADY GAIT. PATIENT BMx1. ALL NEEDS MET. CALL LIGHT IN REACH. CONT TO MONITOR.
[2017-07-03] MEDS: levETIRAcetam 1,000 MG IV BAG 100 ML IV SCH (10:01)
[2017-07-03] MEDS: DIGOXIN 0.5 MG/2 ML AMP IVP SCH (10:01)
[2017-07-03] MEDS: clonazePAM 0.5 MG TABLET PO SCH ×2 (10:02→15:34)
[2017-07-03] MEDS: LISINOPRIL 10 MG TABLET (PRINIVIL) PO SCH (10:02)
[2017-07-03] MEDS: LEVOTHYROXINE SODIUM 0.1 MG VIAL IVP SCH (10:02)
[2017-07-03] MEDS: GABAPENTIN 100 MG CAPSULE PO SCH ×2 (10:03→15:34)
[2017-07-03] MEDS: THORAZINE (chlorproMAZINE) 25 MG TAB PO SCH (10:03)
[2017-07-03] MEDS: buPROPion HCL 150 MG XL TAB PO SCH (10:03)
[2017-07-03] MEDS: OMEPRAZOLE 20 MG CAPSULE.DR (PriLOSEC) PO SCH (10:03)
[2017-07-03] MEDS: DULoxetine HCL 30 MG CAPSULE.DR (CYMBALTA) PO SCH (10:03)
[2017-07-03] MEDS: METHOCARBAMOL 500 MG TABLET PO SCH (10:13)
--- NOTE | 2017-07-03 12:10 | NUR ---
NOTES PATIENT SITTING UP IN BED. EATING LUNCH, SELWYN WELL. ALL NEEDS MET. CALL LIGHT IN REACH. CONT TO MONITOR.
[2017-07-03 12:30] VITALS: BP_SYST 115
--- NOTE | 2017-07-03 14:11 | NUR ---
DC Planing: Per Dioni at [facility], gave bed assignment room 15B, bed available anytime. RN to report # [phone]. Cm received dc order from dr. Chapman, may transfer pt. today. >> Booked w/[facility] , BLS transfer , [facility] # [phone] pick up operator time between 4-4:30 pm. Adilene BARTH made aware.
--- NOTE | 2017-07-03 14:15 | NUR ---
NOTES ASSISTED PATIENT TO BATHROOM, SELWYN WELL WITH STEADY GAIT. PROVIDED NEW CLEAN GOWN. ALL NEEDS MET. CALL LIGHT IN REACH. CONT TO MONITOR.
--- NOTE | 2017-07-03 15:10 | NUR ---
report to [facility] Report given to Viry BARTH at [facility]. Patient going to room 15B. Viry request to push metal pickling equipment operator time to 6pm and to D/C femoral line. Will call regarding femoral line.
--- NOTE | 2017-07-03 15:23 | NUR ---
/Femoral line Spoke to regarding D/C femoral line before discharge. Per keep femoral line and continue IVF for 3 more days at SNF. Continue to monitor.
--- NOTE | 2017-07-03 15:25 | NUR ---
picking belt operator update Spoke to Alina at [facility] and picking belt operator will be at 1830. Updated Viry RN at [facility] regarding picking belt operator time and femoral line.
[2017-07-03 16:30] VITALS: BP_SYST 122
--- NOTE | 2017-07-03 16:30 | NUR ---
notes PATIENT STABLE. SITTING UP IN BED TALKING ON CELL PHONE. NO ACUTE DISTRESS. NO SOB. RESPIRATION EVEN AND UNLABORED. ALL NEEDS MET. CONT TO MONITOR.
[2017-07-03] MEDS: PROCHLORPERAZINE EDISYLATE 10 MG/2 ML VIAL IVP PRN (17:13)
[2017-07-03 17:40] VITALS: BP_SYST 116
--- NOTE | 2017-07-03 19:05 | NUR ---
PT TRANSFERRED Report given to Viry BARTH at [facility]. Transfer packet with Transfer Orders and Medication Reconciliation form given to EMT with report. Exitcare provided. SD[facility] ID band removed, replaced with ID band with pt's name and . Right femoral line intact and patent covered with clean/dry tegaderm with no s/sx infection/infiltration noted; MD wanted to continue IVF x3 more days. All belongings sent with patient. Patient left floor via gurney escorted by EMT in no distress.
== END 2017-07-03 19:05 | DRG 381 ==
LOC: SED 05:28 → SMU 08:53
PROVIDERS: ADMIT Family Medicine; ATTEND Family Medicine
PROC: 0DB68ZX Excision of Stomach, Via Natural or Artificial Opening Endoscopic, Diagnostic (ICD-10-PCS; 2017-07-01)
PROC: 0DB58ZX Excision of Esophagus, Via Natural or Artificial Opening Endoscopic, Diagnostic (ICD-10-PCS; principal; 2017-07-01 08:30)
DX: K28.9 Gastrojejunal ulcer, unspecified as acute or chronic, without hemorrhage or perforation (principal); E27.1 Primary adrenocortical insufficiency; K52.9 Noninfective gastroenteritis and colitis, unspecified; E03.9 Hypothyroidism, unspecified; K22.70 Barrett's esophagus without dysplasia; G40.909 Epilepsy, unspecified, not intractable, without status epilepticus; E11.9 Type 2 diabetes mellitus without complications; F17.200 Nicotine dependence, unspecified, uncomplicated; F31.9 Bipolar disorder, unspecified; J44.9 Chronic obstructive pulmonary disease, unspecified; K20.9 Esophagitis, unspecified; M19.90 Unspecified osteoarthritis, unspecified site; M54.9 Dorsalgia, unspecified; Z96.653 Presence of artificial knee joint, bilateral; G89.29 Other chronic pain; K29.00 Acute gastritis without bleeding; Z87.11 Personal history of peptic ulcer disease; Z90.49 Acquired absence of other specified parts of digestive tract; Z89.412 Acquired absence of left great toe; Z98.84 Bariatric surgery status; Z88.2 Allergy status to sulfonamides; Z89.411 Acquired absence of right great toe; Z88.8 Allergy status to other drugs, medicaments and biological substances; Z88.0 Allergy status to penicillin
CPT/HCPCS: 36415; 43239; 80048; 80053; 81000-TC; 83690-TC; 85025; 85610-TC; 87081; 88160; 88162; 88305; 88312; 88313; 93005; 96361; 96374; 96375; 96376; 99285; C1751; C9113; J0780; J1160; J1200; J1720; J1953; J2250; J2270; J3010; J3480; J7030; J7050; Q0161; Q0162

== ENCOUNTER 2018-12-26 13:13 | Inpatient (IN) | payer OTHER, MEDICAID ==
[~2018-12-26] VITALS: Ht 157.5 cm; Wt 62.6 kg
[~2018-12-26 13:13] MED LIST changes: +ACET-2165 PO; -DOCU250C71 PO; +LEVE1000 PO; -LEVE500T13 PO; -MULT PO; +QUET200T PO; -QUET300T2 PO; -TRAZ-126 PO; +TRAZ-219 PO
[2018-12-26] MEDS ORDERED: ACETAMINOPHEN 325 MG TABLET PO PRN (15:30)
[2018-12-26] MEDS ORDERED: cloNIDine HCL 0.1 MG TABLET PO PRN (15:30)
[2018-12-26] MEDS ORDERED: ONDANSETRON 4 MG ODT TAB PO PRN (15:30)
[2018-12-26 15:45] VITALS: BP_SYST 109
[2018-12-26 16:17] LABS: MEAN CORPUSCULAR HEMOGLOBIN 19 pg (27-31); MEAN CORPUSCULAR HGB CONC 30 % (32-36); MEAN CORPUSCULAR VOLUME 63 fL (79.0-98.0); PLATELET COUNT (AUTO) 111 K/uL (130-430); RED BLOOD CELL COUNT(AUTO) 3.32 MIL/uL (4.2-6.2); RED CELL DISTRIBUTION WIDTH 21.1 % (9.0-15.0); WHITE BLOOD COUNT (AUTO) 10.2 K/uL (4.8-10.8)
[2018-12-26 16:19] LABS: ALBUMIN 3.4 g/dL (3.4-4.8); CALCIUM 8.1 mg/dL (8.4-11.0); CREATININE 0.94 mg/dL (0.55-1.30); POTASSIUM 4.2 mmol/L (3.5-5.1); TOTAL BILIRUBIN 0.3 mg/dL (0.0-1.0)
[2018-12-26 16:20] LABS: HEMOGLOBIN 6.3 g/dL (12.0-16.0)
[2018-12-26 16:29] LABS: BAND % (MANUAL) 0 % (0-6); BASOPHILS % (MANUAL) 0 % (0-2); EOSINOPHILS % (MANUAL) 1 % (0-7); LYMPHOCYTES % (MANUAL) 18 % (20-46); MONOCYTES % (MANUAL) 5 % (0-11)
[2018-12-26 20:15] VITALS: BP_SYST 132
[2018-12-26] MEDS: TEMAZEPAM 15 MG CAPSULE PO SCH (21:01)
[2018-12-26] MEDS: clonazePAM 0.5 MG TABLET PO SCH (21:01)
[2018-12-26] MEDS: DULoxetine HCL 30 MG CAPSULE.DR (CYMBALTA) PO SCH (21:02)
[2018-12-26] MEDS: GABAPENTIN 100 MG CAPSULE PO SCH (21:02)
[2018-12-26] MEDS: traZODone HCL 50 MG TABLET (DESYREL) PO SCH (21:02)
[2018-12-26] MEDS: QUEtiapine FUMARATE 100 MG TABLET PO SCH (21:02)
[2018-12-26] MEDS: THORAZINE (chlorproMAZINE) 25 MG TAB PO SCH (21:03)
[2018-12-26] MEDS: HYDROCORTISONE 10 MG TABLET (CORTEF) PO SCH (21:03)
[2018-12-26] MEDS: METHOCARBAMOL 500 MG TABLET PO SCH (21:04)
[2018-12-26] MEDS: levETIRAcetam 500 MG TABLET PO SCH (21:04)
[2018-12-27 01:41] VITALS: BP_SYST 102
[2018-12-27 06:10] VITALS: BP_SYST 136
[2018-12-27] MEDS: LEVOTHYROXINE SODIUM 0.15 MG TABLET PO SCH (06:56)
[2018-12-27 07:55] VITALS: BP_SYST 139
[2018-12-27 08:12] LABS: HEMATOCRIT 38.2 % (36-48); HEMOGLOBIN 11.9 g/dL (12.0-16.0); MEAN CORPUSCULAR HEMOGLOBIN 22 pg (27-31); MEAN CORPUSCULAR HGB CONC 31 % (32-36); MEAN CORPUSCULAR VOLUME 70 fL (79.0-98.0); PLATELET COUNT (AUTO) 96 K/uL (130-430); RED BLOOD CELL COUNT(AUTO) 5.44 MIL/uL (4.2-6.2); RED CELL DISTRIBUTION WIDTH 25.3 % (9.0-15.0)
[2018-12-27 08:13] LABS: WHITE BLOOD COUNT (AUTO) 5.7 K/uL (4.8-10.8)
[2018-12-27 08:33] LABS: CALCIUM 8.8 mg/dL (8.4-11.0); CREATININE 0.89 mg/dL (0.55-1.30); FREE T4 (FREE THYROXINE) 0.8 ng/dl (0.8-1.5); THYROID STIMULATING HORMONE 2.06 uIu/mL (0.36-3.74)
[2018-12-27] MEDS: DULoxetine HCL 30 MG CAPSULE.DR (CYMBALTA) PO SCH ×2 (09:24→21:36)
[2018-12-27] MEDS: levETIRAcetam 500 MG TABLET PO SCH ×2 (09:25→21:37)
[2018-12-27] MEDS: PANTOPRAZOLE SODIUM 40 MG TAB PO SCH (09:25)
[2018-12-27] MEDS: METHOCARBAMOL 500 MG TABLET PO SCH ×2 (09:25→21:39)
[2018-12-27] MEDS: LISINOPRIL 10 MG TABLET (PRINIVIL) PO SCH (09:26)
[2018-12-27] MEDS: GABAPENTIN 100 MG CAPSULE PO SCH ×3 (09:26→21:36)
[2018-12-27] MEDS: clonazePAM 0.5 MG TABLET PO SCH ×3 (09:26→21:37)
[2018-12-27] MEDS: buPROPion HCL 150 MG XL TAB PO SCH (09:26)
[2018-12-27] MEDS: DIGOXIN 0.125 MG TABLET PO SCH (09:26)
[2018-12-27] MEDS: THORAZINE (chlorproMAZINE) 25 MG TAB PO SCH ×2 (09:27→21:37)
[2018-12-27 12:20] LABS: ATYPICAL LYMPHOCYTES % 0 % (0-0); BAND % (MANUAL) 0 % (0-6); BASOPHILS % (MANUAL) 0 % (0-2); EOSINOPHILS % (MANUAL) 2 % (0-7); LYMPHOCYTES % (MANUAL) 24 % (20-46); MONOCYTES % (MANUAL) 9 % (0-11)
[2018-12-27 12:37] VITALS: BP_SYST 116
[2018-12-27 16:07] VITALS: BP_SYST 101
[2018-12-27] MEDS: OXYCODONE/ACETAMINOPHEN 5-325 TABLET PO PRN ×2 (17:13→23:09)
[2018-12-27] MEDS ORDERED: SOD FERRIC GLUC COMPLEX/SUC 125 MG in NS 100 ML IV SCH (20:00)
[2018-12-27 20:55] VITALS: BP_SYST 109
[2018-12-27] MEDS: HYDROCORTISONE 10 MG TABLET (CORTEF) PO SCH (21:36)
[2018-12-27] MEDS: traZODone HCL 50 MG TABLET (DESYREL) PO SCH (21:36)
[2018-12-27] MEDS: TEMAZEPAM 15 MG CAPSULE PO SCH (21:36)
[2018-12-27] MEDS: QUEtiapine FUMARATE 100 MG TABLET PO SCH (21:36)
[2018-12-27] MEDS ORDERED: SOD FERRIC GLUC COMPLEX/SUC 62.5 MG/5 ML VIAL (FERRLECIT) IV ONE (21:45)
[2018-12-28 01:20] VITALS: BP_SYST 93
[2018-12-28] MEDS: LEVOTHYROXINE SODIUM 0.15 MG TABLET PO SCH (06:07)
[2018-12-28 09:06] VITALS: BP_SYST 154
[2018-12-28] MEDS: levETIRAcetam 500 MG TABLET PO SCH (09:08)
[2018-12-28] MEDS: GABAPENTIN 100 MG CAPSULE PO SCH ×2 (09:08→15:08)
[2018-12-28] MEDS: THORAZINE (chlorproMAZINE) 25 MG TAB PO SCH (09:08)
[2018-12-28] MEDS: clonazePAM 0.5 MG TABLET PO SCH ×2 (09:09→15:08)
[2018-12-28] MEDS: DULoxetine HCL 30 MG CAPSULE.DR (CYMBALTA) PO SCH (09:09)
[2018-12-28] MEDS: LISINOPRIL 10 MG TABLET (PRINIVIL) PO SCH (09:09)
[2018-12-28] MEDS: METHOCARBAMOL 500 MG TABLET PO SCH (09:09)
[2018-12-28] MEDS: DIGOXIN 0.125 MG TABLET PO SCH (09:09)
[2018-12-28] MEDS: buPROPion HCL 150 MG XL TAB PO SCH (09:09)
[2018-12-28] MEDS: PANTOPRAZOLE SODIUM 40 MG TAB PO SCH (09:10)
[2018-12-28] MEDS ORDERED: SOD FERRIC GLUC COMPLEX/SUC 125 MG in NS 100 ML IV SCH (10:30)
[2018-12-28 11:00] VITALS: BP_SYST 65
[2018-12-28 11:55] VITALS: BP_SYST 95
[2018-12-28 16:52] VITALS: BP_SYST 116
== END 2018-12-28 16:30 | disposition home or self-care (01) | DRG 812 ==
LOC: SMU 15:02
PROVIDERS: ADMIT Family Medicine; ATTEND Family Medicine
PROC: 05HY33Z Insertion of Infusion Device into Upper Vein, Percutaneous Approach (ICD-10-PCS; principal; 2018-12-26)
PROC: B54MZZA Ultrasonography of Right Upper Extremity Veins, Guidance (ICD-10-PCS; 2018-12-26)
PROC: 30233N1 Transfusion of Nonautologous Red Blood Cells into Peripheral Vein, Percutaneous Approach (ICD-10-PCS; 2018-12-26)
DX: D50.9 Iron deficiency anemia, unspecified (principal); E27.1 Primary adrenocortical insufficiency; E03.9 Hypothyroidism, unspecified; I10 Essential (primary) hypertension; F17.210 Nicotine dependence, cigarettes, uncomplicated; G40.909 Epilepsy, unspecified, not intractable, without status epilepticus; M19.90 Unspecified osteoarthritis, unspecified site; F31.9 Bipolar disorder, unspecified; E11.9 Type 2 diabetes mellitus without complications; M17.0 Bilateral primary osteoarthritis of knee; Z96.652 Presence of left artificial knee joint; Z98.84 Bariatric surgery status; Z90.13 Acquired absence of bilateral breasts and nipples; Z88.0 Allergy status to penicillin; Z88.2 Allergy status to sulfonamides; Z79.899 Other long term (current) drug therapy
CPT/HCPCS: 36415; 80048; 80053; 83540-TC; 84439; 84443-TC; 85007; 85027; 86886; 86900; 86901; 86920; C1751; J2916; J7050; P9021; Q0161

== ENCOUNTER 2019-02-23 14:10 | Inpatient (IN) | payer OTHER, MEDICAID ==
[~2019-02-23] VITALS: Ht 157.5 cm; Wt 71.7 kg
--- NOTE | 2019-02-23 | NUR ---
AWAKE,NOT IN ANY KIND OF DISTRESS. NO PAIN OR DISCOMFORT NOTED. BP BETTER. PT.REQUESTS FOR FERREIRA CATHETER INSERTION. WILL TRY AGAIN. LEVAQUIN 750 MG ADMINISTERED. SIDE RAILS UP, CALL LIGHT WITHIN REACH. KEPT WARM AND COMFORTABLE. VS STABLE, WILL CONTINUE TO MONITOR. Addendum: 02/24/19 at 0050 by Fifteen supervisor cemetery workers ERROR: WRONG DATE. INTENDED FOR 02/24/2019 @ 0000.
[2019-02-23 14:17] VITALS: BP_SYST 163
--- NOTE | 2019-02-23 14:45 | NUR ---
Patient to ER bed 08 to gown for evaluation. Side rails up.
--- NOTE | 2019-02-23 14:48 | NUR ---
Patient arrived in the ED c/o bilateral lower extremity edema for 3 -4 days now. Denied any shortness of breath. Denied any nausea, vomiting, fevers or chills. Patient is alert and oriented x4, respirations even and unlabored, speaking in full sentences and ambulating using a cane. VSS, pain level 0/10. Informed of the wait time. INstructed to notify ED staff for any changes in condition or wosrening of symptoms. Patient verbalized understanding.
--- NOTE | 2019-02-23 14:58 | NUR ---
ER Dr. Espinoza at bedside examining patient.
--- NOTE | 2019-02-23 15:00 | NUR ---
Patient is direct admit per boiler house inspector. Patient will be admitted to care of Dr. Chapman. Admitted to MS unit. Will go to room 123A. Belongings list completed. Complete and up to date summary report printed.
[2019-02-23 15:27] LABS: HEMATOCRIT 33.4 % (36-48); HEMOGLOBIN 10.5 g/dL (12.0-16.0); MEAN CORPUSCULAR HEMOGLOBIN 25 pg (27-31); MEAN CORPUSCULAR HGB CONC 31 % (32-36); MEAN CORPUSCULAR VOLUME 80 fL (79.0-98.0); PLATELET COUNT (AUTO) 157 K/uL (130-430); RED CELL DISTRIBUTION WIDTH 24.7 % (9.0-15.0); WHITE BLOOD COUNT (AUTO) 7.1 K/uL (4.8-10.8)
[2019-02-23 15:44] LABS: CALCIUM 7.8 mg/dL (8.4-11.0); CREATININE 0.94 mg/dL (0.55-1.30); POTASSIUM 3.3 mmol/L (3.5-5.1)
[2019-02-23 15:47] VITALS: BP_SYST 157
[2019-02-23 15:51] LABS: ALBUMIN 2.7 g/dL (3.4-4.8); TOTAL BILIRUBIN 0.3 mg/dL (0.0-1.0)
--- NOTE | 2019-02-23 16:00 | NUR ---
admission notes, received pt from home pt is direct admit under dr rainey. pt is aaox4, denies pain, no sob, no resp distress. noted edema on bilat lower ext. vitals wnl , safety precaution kept in place. bed in low position. locked, call light in reach. encouraged pt to call for assist and pain med. will continue to monitor.
--- NOTE | 2019-02-23 16:04 | NUR ---
xray at bedside at this time.
--- NOTE | 2019-02-23 16:13 | NUR ---
Verified with pt her home medications and pharmacy.
[2019-02-23 16:33] VITALS: BP_SYST 157
--- NOTE | 2019-02-23 17:00 | NUR ---
Requested charge nurse to insert stringer cath as pt requested for a female nurse.
[2019-02-23 17:04] LABS: BASOPHILS % (MANUAL) 0 % (0-2); EOSINOPHILS % (MANUAL) 0 % (0-7); LYMPHOCYTES % (MANUAL) 20 % (20-46); MONOCYTES % (MANUAL) 3 % (0-11)
[2019-02-23 17:56] LABS: PROTHROMBIN TIME 9.8 SECS (9.5-12.5)
[2019-02-23] MEDS ORDERED: ONDANSETRON 4 MG ODT TAB PO PRN (18:15)
[2019-02-23] MEDS ORDERED: OXYCODONE/ACETAMINOPHEN 5-325 TABLET PO PRN (18:15)
[2019-02-23] MEDS ORDERED: INSULIN REGULAR, HUMAN 100 UNITS/ML, 10 ML VIAL (humuLIN R) SUBCUT PRN (18:15)
[2019-02-23] MEDS ORDERED: cloNIDine HCL 0.1 MG TABLET PO PRN (18:15)
[2019-02-23] MEDS ORDERED: ACETAMINOPHEN 325 MG TABLET PO PRN (18:15)
[2019-02-23] MEDS ORDERED: POTASSIUM CHLORIDE 20 MEQ TAB.PRT.SR PO ONE (18:30)
[2019-02-23] MEDS ORDERED: DEXTROSE 50%-WATER 50 ML DISP.SYRIN IVP PRN (19:00)
[2019-02-23] MEDS ORDERED: GLUCOSE 15 GM GEL (in 37.5 GM TUBE) PO PRN (19:00)
[2019-02-23] MEDS ORDERED: D5W 1,000 ML IV PRN (19:00)
--- NOTE | 2019-02-23 19:58 | NUR ---
closing notes, pt has been stable the whole shift, no c/o pain. 3 nurses tried to insert stringer cath for pt. for pt does not want to endorse it to night nurse to no avail. picc insertion order given to house sup. endorsed to night nurse.
[2019-02-23 20:00] VITALS: BP_SYST 179
--- NOTE | 2019-02-23 20:00 | NUR ---
ASSUMED CARE. RECEIVED ALERT,ORIENTED,AMBULATORY. AFEBRILE, NOT IN ACUTE DISTRESS. DENIES PAIN BUT VERBALIZED FEELING ANXIOUS. NY=586/69. WILL RECHECK WHEN PT. MORE RELAXED. NO IV ACCESS AT THIS TIME. AWAITING PICC LINE NURSE. FERREIRA INSERTION ATTEMPTED AT LEAST 3 TIMES INCLUDING ICU SPECIALIST CASTING MACHINE SERVICE OPERATOR RACHEL. WILL CONTINUE TO MONITOR. NEEDS ATTENDED.
[2019-02-23] MEDS: DULoxetine HCL 30 MG CAPSULE.DR (CYMBALTA) PO SCH (20:37)
[2019-02-23] MEDS: HYDROCORTISONE 10 MG TABLET (CORTEF) PO SCH (20:37)
[2019-02-23] MEDS: traZODone HCL 50 MG TABLET (DESYREL) PO SCH (20:37)
[2019-02-23] MEDS: GABAPENTIN 100 MG CAPSULE PO SCH (20:38)
[2019-02-23] MEDS: TEMAZEPAM 15 MG CAPSULE PO SCH (20:38)
[2019-02-23] MEDS: clonazePAM 0.5 MG TABLET PO SCH (20:38)
[2019-02-23] MEDS: QUEtiapine FUMARATE 100 MG TABLET PO SCH (20:38)
[2019-02-23] MEDS: METHOCARBAMOL 500 MG TABLET PO SCH (20:38)
[2019-02-23] MEDS: THORAZINE (chlorproMAZINE) 25 MG TAB PO SCH (20:39)
--- NOTE | 2019-02-23 20:39 | NUR ---
DUE MEDICATIONS GIVEN EXCEPT IV MEDS.
--- NOTE | 2019-02-23 20:42 | NUR ---
PICC LINE NURSE DAIANA CALLED AND SAID HE WILL BE IN THE UNIT IN ABOUT 1-2 HOURS.
--- NOTE | 2019-02-23 20:56 | NUR ---
FINGERSTICK BLOOD SUGAR CHECK=80. NO INSULIN COVERAGE NEEDED. BEDTIME SNACK GIVEN.
--- NOTE | 2019-02-23 22:05 | NUR ---
PICC LINE NURSE DAIANA AT BEDSIDE TO DO PICC VS MIDLINE CATHETER INSERTION.
--- NOTE | 2019-02-23 22:40 | NUR ---
MIDLINE CATHETER INSERTION COMPLETED. PT. TOLERATED PROCEDURE WELL. DAIANA BARTH SAID CATHETER READY TO BE USED.
[2019-02-23] MEDS: metroNIDAZOLE 500 mg/NS 100 ML IV SCH (22:56)
--- NOTE | 2019-02-23 22:56 | NUR ---
FLAGYL 500 MG IVPB AND LASIX 40 MG IVP GIVEN.
[2019-02-23] MEDS: FUROSEMIDE 40 MG/4 ML VIAL IVP SCH (22:57)
--- NOTE | 2019-02-24 | NUR ---
AWAKE,NOT IN ANY KIND OF DISTRESS. NO PAIN OR DISCOMFORT NOTED. BP BETTER. PT.REQUESTS FOR FERREIRA CATHETER INSERTION. WILL TRY AGAIN. LEVAQUIN 750 MG ADMINISTERED. SIDE RAILS UP, CALL LIGHT WITHIN REACH. KEPT WARM AND COMFORTABLE. VS STABLE, WILL CONTINUE TO MONITOR.
[2019-02-24 00:06] VITALS: BP_SYST 149
--- NOTE | 2019-02-24 03:50 | NUR ---
SAMI 16 FERREIRA CATHETER INSERTED ORDERED. PT. REMAINS STABLE AND PAIN FREE.
[2019-02-24] MEDS: metroNIDAZOLE 500 mg/NS 100 ML IV SCH ×3 (06:24→22:33)
--- NOTE | 2019-02-24 06:24 | NUR ---
FINGERSTICK BLOOD SUGAR CHECK=83. NO INSULIN COVERAGE NEEDED. DUE MEDICATIONS GIVEN.
[2019-02-24] MEDS ORDERED: LEVOTHYROXINE SODIUM 0.15 MG TABLET PO SCH (07:00)
--- NOTE | 2019-02-24 07:07 | NUR ---
ENDORSED CARE TO NO VERMA
--- NOTE | 2019-02-24 08:00 | NUR ---
opening notes, received pt in bed, pt is aaox4, denies pain. no sob, no resp distress. pt has stringer with yellow clear drainage, pt midline intact and patent. safety precaution in place. call light in reach. bed in low position, encouraged to call for assist and pain meds.
[2019-02-24 08:09] VITALS: BP_SYST 163
[2019-02-24] MEDS ORDERED: OMEPRAZOLE Non-Formulary 20 MG CAPSULE.DR PO SCH (09:00)
[2019-02-24] MEDS: ENOXAPARIN SODIUM 40 MG/0.4 ML SYRINGE SUBCUT SCH (09:13)
[2019-02-24] MEDS: FUROSEMIDE 40 MG/4 ML VIAL IVP SCH ×2 (09:14→21:39)
[2019-02-24] MEDS: buPROPion HCL 150 MG XL TAB PO SCH (09:15)
[2019-02-24] MEDS: THORAZINE (chlorproMAZINE) 25 MG TAB PO SCH ×2 (09:15→21:41)
[2019-02-24] MEDS: POTASSIUM CHLORIDE 20 MEQ TAB.PRT.SR PO SCH ×2 (09:16→21:41)
[2019-02-24] MEDS: DULoxetine HCL 30 MG CAPSULE.DR (CYMBALTA) PO SCH ×2 (09:16→21:40)
[2019-02-24] MEDS: METHOCARBAMOL 500 MG TABLET PO SCH ×2 (09:16→21:42)
[2019-02-24] MEDS: levETIRAcetam 500 MG TABLET PO SCH (09:16)
[2019-02-24] MEDS: clonazePAM 0.5 MG TABLET PO SCH ×3 (09:16→21:41)
[2019-02-24] MEDS: GABAPENTIN 100 MG CAPSULE PO SCH ×3 (09:16→21:42)
[2019-02-24] MEDS: PANTOPRAZOLE SODIUM 40 MG TAB PO SCH (09:17)
[2019-02-24] MEDS: DIGOXIN 0.125 MG TABLET PO SCH (09:17)
[2019-02-24] MEDS: LISINOPRIL 10 MG TABLET (PRINIVIL) PO SCH (09:17)
--- NOTE | 2019-02-24 10:10 | NUR ---
pt in bed, sleeping, no s/s pain, no sob.
--- NOTE | 2019-02-24 11:51 | NUR ---
DC Planning Spoke fiorella [employer] Parts Specialist at [phone] advised following physician should be Dr Zuleta. Notification to Dr Chapman request to change of service as per insurance request.
[2019-02-24 12:18] VITALS: BP_SYST 127
--- NOTE | 2019-02-24 12:30 | NUR ---
pt in bed, no c/o pain, eating lunch. will cont to monitor.
--- NOTE | 2019-02-24 13:23 | NUR ---
Admitting informed regarding changed of attending MD to Dr. Zuleta, exchanged informed also spoke to CARLOS
--- NOTE | 2019-02-24 15:50 | NUR ---
pt's bp low at sbp 85, no c/o of dizziness, normal heart rate. pt had about 3000 cc of stringer output. will cont to monitor.
[2019-02-24 16:22] VITALS: BP_SYST 85
[2019-02-24] MEDS ORDERED: FUROSEMIDE 20 MG/2 ML VIAL IVP ONE (16:45)
[2019-02-24 17:41] VITALS: BP_SYST 118
--- NOTE | 2019-02-24 18:58 | NUR ---
CLOSING NOTES, PT HAS BEEN STABLE, HAD AND EPISODE OF HYPOTENSION X1 , HEART RATE WAS WNL, LATER ON PT'S BP WAS NORMAL. PT DID NOT C/O OF DIZZINESS OR PALPITATIONS, LASIX X1 20 MG WAS GIVEN ORDERED BY DR FRIEDMAN. ALL MEDS GIVEN. WILL ENDORSE TO NIGHT NURSE.
--- NOTE | 2019-02-24 19:43 | NUR ---
patient recieved desires to go out for smoke and COMPUTER METHODS ANALYST brought patient via wheelcahior to the patio for smoking,
--- NOTE | 2019-02-24 19:52 | NUR ---
back from smoking, fixed in bed and made comfortable. ivf resumed
[2019-02-24 20:00] VITALS: BP_SYST 122
[2019-02-24] MEDS: TEMAZEPAM 15 MG CAPSULE PO SCH (21:40)
[2019-02-24] MEDS: QUEtiapine FUMARATE 100 MG TABLET PO SCH (21:40)
[2019-02-24] MEDS: traZODone HCL 50 MG TABLET (DESYREL) PO SCH (21:42)
[2019-02-24] MEDS: HYDROCORTISONE 10 MG TABLET (CORTEF) PO SCH (21:42)
[2019-02-25 00:39] VITALS: BP_SYST 101
[2019-02-25 04:00] VITALS: BP_SYST 114
[2019-02-25] MEDS: metroNIDAZOLE 500 mg/NS 100 ML IV SCH (05:55)
--- NOTE | 2019-02-25 07:20 | NUR ---
INITIAL NOTE PT RESTING IN BED, NO ACUTE DISTRESS NOTED, BREATHING EVEN AND UNLABORED. CALL LIGHT WITHIN REACH, BED IN LOW AND LOCKED POSITION WITH BED ALARM ON.
[2019-02-25] MEDS: ENOXAPARIN SODIUM 40 MG/0.4 ML SYRINGE SUBCUT SCH (08:35)
[2019-02-25] MEDS: DULoxetine HCL 30 MG CAPSULE.DR (CYMBALTA) PO SCH (08:36)
[2019-02-25] MEDS: THORAZINE (chlorproMAZINE) 25 MG TAB PO SCH (08:36)
[2019-02-25] MEDS: DIGOXIN 0.125 MG TABLET PO SCH (08:36)
[2019-02-25] MEDS: GABAPENTIN 100 MG CAPSULE PO SCH (08:36)
[2019-02-25] MEDS: METHOCARBAMOL 500 MG TABLET PO SCH (08:36)
[2019-02-25] MEDS: POTASSIUM CHLORIDE 20 MEQ TAB.PRT.SR PO SCH (08:37)
[2019-02-25] MEDS: levETIRAcetam 500 MG TABLET PO SCH (08:37)
[2019-02-25] MEDS: buPROPion HCL 150 MG XL TAB PO SCH (08:37)
[2019-02-25] MEDS: clonazePAM 0.5 MG TABLET PO SCH (08:38)
[2019-02-25] MEDS: PANTOPRAZOLE SODIUM 40 MG TAB PO SCH (08:38)
[2019-02-25] MEDS: FUROSEMIDE 40 MG/4 ML VIAL IVP SCH (08:39)
--- NOTE | 2019-02-25 08:50 | NUR ---
OUT TO SMOKE PT TAKEN VIA WHEELCHAIR TO SMOKE. DENIES ANY SOB, OR DISCOMFORT.
--- NOTE | 2019-02-25 08:51 | NUR ---
Nutrition Update Yazan Scale 16 noted. Pt admitted for cellulitis of LE. Diet: regular BMI: 28.9 kg/m2 RD to follow per nutrition care standards.
[2019-02-25] MEDS: LISINOPRIL 10 MG TABLET (PRINIVIL) PO SCH (09:00)
--- NOTE | 2019-02-25 11:00 | NUR ---
RN ROUNDS NO CHANGE IN ASSESSMENT. PT AWAKE. WATCHING TELEVISION.
[2019-02-25] MEDS ORDERED: LEVO500T89 PO (11:05)
[2019-02-25 11:17] VITALS: BP_SYST 90
[2019-02-25 11:44] VITALS: BP_SYST 90
--- NOTE | 2019-02-25 12:45 | NUR ---
DISCHARGE NOTE DISCHARGE INSTRUCTIONS AND PRESCRIPTIONS WITH PT. ALL BELONGINGS WITH PT. JC MID LINE REMOVED, CATHETER INTACT, NO BLEEDING. FERREIRA REMOVED, PT TOLERATED WELL, 1000CC OUT PUT, CLEAR AND YELLOW. ID HOSPITAL BAND REMOVED. PT ESCORTED VIA WHEELCHAIR TO FRONT OF HOSPITAL PARKING LOT. PT PARTNER DRIVING PT HOME IN PRIVATE AUTO.
[2019-02-25 12:46] VITALS: BP_SYST 95
== END 2019-02-25 12:25 | disposition home or self-care (01) | DRG 603 ==
LOC: SED 14:10 → SMU 15:58
PROVIDERS: ADMIT Family Medicine; ATTEND Internal Medicine Hospice and Palliative Medicine
PROC: 02HV33Z Insertion of Infusion Device into Superior Vena Cava, Percutaneous Approach (ICD-10-PCS; principal; 2019-02-23)
PROC: B548ZZA Ultrasonography of Superior Vena Cava, Guidance (ICD-10-PCS; 2019-02-23)
DX: L03.115 Cellulitis of right lower limb (principal); E44.0 Moderate protein-calorie malnutrition; E27.1 Primary adrenocortical insufficiency; L03.116 Cellulitis of left lower limb; E11.9 Type 2 diabetes mellitus without complications; I48.0 Paroxysmal atrial fibrillation; Z96.653 Presence of artificial knee joint, bilateral; J44.9 Chronic obstructive pulmonary disease, unspecified; I50.9 Heart failure, unspecified; I11.0 Hypertensive heart disease with heart failure; E03.9 Hypothyroidism, unspecified; F31.9 Bipolar disorder, unspecified; D64.9 Anemia, unspecified; F17.200 Nicotine dependence, unspecified, uncomplicated; Z90.13 Acquired absence of bilateral breasts and nipples; Z88.0 Allergy status to penicillin; Z88.2 Allergy status to sulfonamides; Z88.6 Allergy status to analgesic agent; Z79.899 Other long term (current) drug therapy; Z85.3 Personal history of malignant neoplasm of breast; Z68.28 Body mass index [BMI] 28.0-28.9, adult
CPT/HCPCS: 36415; 71045; 80053; 82550-TC; 82962; 83880; 84484; 85007; 85027; 85610-TC; 85730-TC; 93970; 99285; J1650; J1815; J1940; J1956; J3490; J7050; Q0161

== ENCOUNTER 2019-07-14 15:55 | Outpatient (CLI) | payer OTHER, MEDICAID ==
[~2019-07-14 15:55] MED LIST changes: +LEVO500T89 PO
== END 2019-07-14 20:44 | disposition home or self-care (01) ==
LOC: SRD 15:55
PROVIDERS: ATTEND Family Medicine
DX: Z01.818 Encounter for other preprocedural examination (principal); I70.0 Atherosclerosis of aorta; M21.822 Other specified acquired deformities of left upper arm; R05 Cough
CPT/HCPCS: 71046-TC

== ENCOUNTER 2020-01-06 20:27 | Emergency (ER) | payer OTHER, MEDICAID ==
[~2020-01-06] VITALS: Ht 157.5 cm; Wt 56.7 kg
[~2020-01-06 20:27] MED LIST changes: -ACET-2165 PO; +ACET325T PO; +DIGO125T PO; -DIGO125T79 PO; -TRAZ-219 PO; +TRAZ-251 PO
[2020-01-06 20:30] VITALS: BP_SYST 114
[2020-01-06 23:58] VITALS: BP_SYST 110
== END 2020-01-06 23:58 | disposition home or self-care (01) ==
LOC: SED 20:27
DX: M86.8X8 Other osteomyelitis, other site (principal)
CPT/HCPCS: 71045; 99285

== ENCOUNTER 2020-03-31 13:16 | Inpatient (IN) | payer OTHER, MEDICAID, SELFPAY ==
[~2020-03-31] VITALS: Ht 157.5 cm; Wt 56.7 kg
[2020-03-31 13:44] VITALS: BP_SYST 153
[2020-03-31] MEDS ORDERED: ONDANSETRON HCL 4 MG/2 ML VIAL IVP ONE (14:30)
[2020-03-31] MEDS ORDERED: MORPHINE 4 MG/ML INJ. SYRINGE IVP ONE (14:30)
[2020-03-31] MEDS ORDERED: NACL 0.9% 1,000 ML IV ONE (14:30)
[2020-03-31] MEDS ORDERED: CLINDAMYCIN 600 mg/50mL D5W 50 ML IV ONE (14:45)
[2020-03-31 14:57] LABS: BASOPHILS # (AUTO) 0.1 K/uL (0.0-0.2); BASOPHILS % (AUTO) 0.9 % (0.0-2.0); EOSINOPHILS # (AUTO) 0.1 K/uL (0.0-0.4); EOSINOPHILS % (AUTO) 0.5 % (0.0-4.0); HEMATOCRIT 36.2 % (36-48); HEMOGLOBIN 11.5 g/dL (12.0-16.0); LYMPHOCYTES # (AUTO) 1.7 K/uL (1.0-5.5); LYMPHOCYTES % (AUTO) 15.9 % (20.5-51.5); MEAN CORPUSCULAR HEMOGLOBIN 24 pg (27-31); MEAN CORPUSCULAR HGB CONC 32 % (32-36); MEAN CORPUSCULAR VOLUME 76 fL (79.0-98.0); MONOCYTES # (AUTO) 0.4 K/uL (0.0-1.0); MONOCYTES % (AUTO) 3.9 % (1.7-9.3); NEUTROPHILS # (AUTO) 8.3 K/uL (1.8-7.7); NEUTROPHILS % (AUTO) 78.8 % (40.0-70.0); PLATELET COUNT (AUTO) 187 K/uL (130-430); RED BLOOD CELL COUNT(AUTO) 4.77 MIL/uL (4.2-6.2); RED CELL DISTRIBUTION WIDTH 23.9 % (9.0-15.0); WHITE BLOOD COUNT (AUTO) 10.6 K/uL (4.8-10.8)
[2020-03-31 15:09] LABS: CALCIUM 8.1 mg/dL (8.4-11.0); CREATININE 0.88 mg/dL (0.55-1.30); POTASSIUM 3.8 mmol/L (3.5-5.1)
[2020-03-31 15:10] LABS: INR 0.9 (0.8-1.2); PROTHROMBIN TIME 9.2 SECS (9.5-12.5)
[2020-03-31] MEDS ORDERED: MORPHINE 4 MG/ML INJ. SYRINGE ONE (15:28)
[2020-03-31] MEDS ORDERED: ACETAMINOPHEN 325 MG TABLET PO SCH (15:30)
[2020-03-31] MEDS ORDERED: ACETAMINOPHEN 325 MG TABLET PO PRN (15:41)
[2020-03-31] MEDS ORDERED: INSULIN REGULAR, HUMAN 100 UNITS/ML, 10 ML VIAL (humuLIN R) SUBCUT PRN (15:45)
[2020-03-31] MEDS: CLINDAMYCIN 600 mg/50mL D5W 50 ML IV SCH ×2 (17:55→23:23)
[2020-03-31] MEDS ORDERED: PIPERACILLIN/TAZO 3.375/DEX-IS 50 ML IV SCH (18:00)
[2020-03-31 18:07] VITALS: BP_SYST 131
[2020-03-31] MEDS ORDERED: LIDOCAINE 1%, 20 ML MDV 20 ML ONE (18:56)
[2020-03-31] MEDS ORDERED: LIDOCAINE 1% 10 MG/ML, 20 ML MDV INJ ONE (19:00)
[2020-03-31 20:00] VITALS: BP_SYST 154
[2020-03-31] MEDS: OXYCODONE/ACETAMINOPHEN 5-325 TABLET PO PRN (20:18)
[2020-03-31] MEDS: HYDROCORTISONE 10 MG TABLET (CORTEF) PO SCH (20:19)
[2020-03-31] MEDS: methocarbamoL 500 MG TABLET PO SCH (20:19)
[2020-03-31] MEDS ORDERED: QUEtiapine FUMARATE 100 MG TABLET ONE (20:20)
[2020-03-31] MEDS: TEMAZEPAM 15 MG CAPSULE PO SCH (20:20)
[2020-03-31] MEDS: traZODone HCL 50 MG TABLET (DESYREL) PO SCH (20:21)
[2020-03-31] MEDS: DULoxetine HCL 30 MG CAPSULE.DR (CYMBALTA) PO SCH (20:22)
[2020-03-31] MEDS: THORAZINE (chlorproMAZINE) 25 MG TAB PO SCH (20:23)
[2020-03-31] MEDS: GABAPENTIN 100 MG CAPSULE PO SCH (20:24)
[2020-03-31] MEDS: clonazePAM 0.5 MG TABLET PO SCH (20:24)
[2020-03-31] MEDS: QUEtiapine FUMARATE 100 MG TABLET PO SCH (20:26)
[2020-03-31] MEDS: ENOXAPARIN SODIUM 40 MG/0.4 ML SYRINGE SUBCUT SCH (20:29)
[2020-04-01 01:51] VITALS: BP_SYST 105
[2020-04-01] MEDS: CLINDAMYCIN 600 mg/50mL D5W 50 ML IV SCH ×4 (05:16→23:48)
[2020-04-01 06:50] LABS: BILIRUBIN,URINE NEGATIVE (NEGATIVE); BLOOD, URINE NEGATIVE (NEGATIVE); CLARITY/URINE CLEAR (CLEAR); COLOR,URINE YELLOW (YELLOW); GLUCOSE,URINE NEGATIVE (NEGATIVE); KETONES,URINE NEGATIVE (NEGATIVE); LEUKOCYTE ESTERASE ,URINE NEGATIVE (NEGATIVE); NITRITE, URINE NEGATIVE (NEGATIVE); PH,URINE 5.5 (5.0-8.0); PROTEIN URINE NEGATIVE (NEGATIVE); UROBILINOGEN,URINE 0.2 (0.2-1.0)
[2020-04-01 07:47] VITALS: BP_SYST 127
[2020-04-01] MEDS: methocarbamoL 500 MG TABLET PO SCH ×2 (09:00→21:30)
[2020-04-01] MEDS: levETIRAcetam 500 MG TABLET PO SCH (09:00)
[2020-04-01] MEDS: buPROPion HCL 150 MG XL TAB PO SCH (09:00)
[2020-04-01] MEDS: GABAPENTIN 100 MG CAPSULE PO SCH ×3 (09:00→21:24)
[2020-04-01] MEDS: DIGOXIN 0.125 MG TABLET PO SCH (09:00)
[2020-04-01] MEDS: PANTOPRAZOLE SODIUM 40 MG TAB PO SCH (09:00)
[2020-04-01] MEDS: DULoxetine HCL 30 MG CAPSULE.DR (CYMBALTA) PO SCH ×2 (09:00→21:23)
[2020-04-01] MEDS: clonazePAM 0.5 MG TABLET PO SCH ×3 (09:00→21:31)
[2020-04-01] MEDS: LEVOTHYROXINE SODIUM 0.15 MG TABLET PO SCH (09:00)
[2020-04-01] MEDS: LISINOPRIL 10 MG TABLET (PRINIVIL) PO SCH (09:00)
[2020-04-01] MEDS: THORAZINE (chlorproMAZINE) 25 MG TAB PO SCH ×2 (09:00→21:23)
[2020-04-01] MEDS: OXYCODONE/ACETAMINOPHEN 5-325 TABLET PO PRN ×2 (09:35→17:44)
[2020-04-01] MEDS ORDERED: fentaNYL CITRATE/PF 100 MCG/2 ML AMP ONE (10:52)
[2020-04-01] MEDS ORDERED: MEPERIDINE HCL/PF 100 MG/ML AMP ONE (10:52)
[2020-04-01] MEDS ORDERED: MIDAZOLAM HCL 5 MG/5 ML VIAL ONE (10:52)
[2020-04-01 12:06] VITALS: BP_SYST 121
[2020-04-01 16:05] VITALS: BP_SYST 116
[2020-04-01 19:00] VITALS: BP_SYST 139
[2020-04-01 20:44] VITALS: BP_SYST 139
[2020-04-01] MEDS: QUEtiapine FUMARATE 100 MG TABLET PO SCH (21:00)
[2020-04-01] MEDS: traZODone HCL 50 MG TABLET (DESYREL) PO SCH (21:00)
[2020-04-01] MEDS: HYDROCORTISONE 10 MG TABLET (CORTEF) PO SCH (21:23)
[2020-04-01] MEDS: TEMAZEPAM 15 MG CAPSULE PO SCH (21:31)
[2020-04-01] MEDS: ENOXAPARIN SODIUM 40 MG/0.4 ML SYRINGE SUBCUT SCH (21:44)
[2020-04-02 00:26] VITALS: BP_SYST 115
[2020-04-02] MEDS: CLINDAMYCIN 600 mg/50mL D5W 50 ML IV SCH ×3 (06:12→18:00)
[2020-04-02 08:00] VITALS: BP_SYST 130
[2020-04-02] MEDS: GABAPENTIN 100 MG CAPSULE PO SCH ×3 (08:32→22:26)
[2020-04-02] MEDS: THORAZINE (chlorproMAZINE) 25 MG TAB PO SCH ×2 (08:32→22:26)
[2020-04-02] MEDS: clonazePAM 0.5 MG TABLET PO SCH ×3 (08:33→22:27)
[2020-04-02] MEDS: buPROPion HCL 150 MG XL TAB PO SCH (08:33)
[2020-04-02] MEDS: levETIRAcetam 500 MG TABLET PO SCH (08:33)
[2020-04-02] MEDS: PANTOPRAZOLE SODIUM 40 MG TAB PO SCH (08:33)
[2020-04-02] MEDS: DIGOXIN 0.125 MG TABLET PO SCH (08:34)
[2020-04-02] MEDS: LISINOPRIL 10 MG TABLET (PRINIVIL) PO SCH (08:34)
[2020-04-02] MEDS: LEVOTHYROXINE SODIUM 0.15 MG TABLET PO SCH (08:34)
[2020-04-02] MEDS: methocarbamoL 500 MG TABLET PO SCH ×2 (08:34→22:26)
[2020-04-02] MEDS: DULoxetine HCL 30 MG CAPSULE.DR (CYMBALTA) PO SCH ×2 (08:35→22:26)
[2020-04-02 11:26] VITALS: BP_SYST 105
[2020-04-02] MEDS: OXYCODONE/ACETAMINOPHEN 5-325 TABLET PO PRN (15:14)
[2020-04-02 16:00] VITALS: BP_SYST 100
[2020-04-02 19:51] VITALS: BP_SYST 95
[2020-04-02 20:00] VITALS: BP_SYST 100
[2020-04-02] MEDS: TEMAZEPAM 15 MG CAPSULE PO SCH (22:26)
[2020-04-02] MEDS: traZODone HCL 50 MG TABLET (DESYREL) PO SCH (22:26)
[2020-04-02] MEDS: HYDROCORTISONE 10 MG TABLET (CORTEF) PO SCH (22:26)
[2020-04-02] MEDS: ENOXAPARIN SODIUM 40 MG/0.4 ML SYRINGE SUBCUT SCH (22:30)
[2020-04-02] MEDS ORDERED: QUEtiapine FUMARATE 100 MG TABLET ONE (22:38)
[2020-04-02] MEDS: QUEtiapine FUMARATE 100 MG TABLET PO SCH (22:41)
[2020-04-03] VITALS: BP_SYST 100
[2020-04-03] MEDS: CLINDAMYCIN 600 mg/50mL D5W 50 ML IV SCH ×5 (05:53→23:37)
[2020-04-03 08:37] VITALS: BP_SYST 106
[2020-04-03] MEDS: clonazePAM 0.5 MG TABLET PO SCH ×3 (08:53→22:10)
[2020-04-03] MEDS: methocarbamoL 500 MG TABLET PO SCH ×2 (08:53→22:10)
[2020-04-03] MEDS: OXYCODONE/ACETAMINOPHEN 5-325 TABLET PO PRN (08:53)
[2020-04-03] MEDS: buPROPion HCL 150 MG XL TAB PO SCH (08:53)
[2020-04-03] MEDS: LISINOPRIL 10 MG TABLET (PRINIVIL) PO SCH (08:54)
[2020-04-03] MEDS: PANTOPRAZOLE SODIUM 40 MG TAB PO SCH (08:54)
[2020-04-03] MEDS: GABAPENTIN 100 MG CAPSULE PO SCH ×3 (08:55→22:12)
[2020-04-03] MEDS: DULoxetine HCL 30 MG CAPSULE.DR (CYMBALTA) PO SCH ×2 (08:55→22:13)
[2020-04-03] MEDS: THORAZINE (chlorproMAZINE) 25 MG TAB PO SCH ×2 (08:55→22:10)
[2020-04-03] MEDS: levETIRAcetam 500 MG TABLET PO SCH (08:56)
[2020-04-03] MEDS: DIGOXIN 0.125 MG TABLET PO SCH (08:56)
[2020-04-03] MEDS: LEVOTHYROXINE SODIUM 0.15 MG TABLET PO SCH (08:56)
[2020-04-03 12:01] VITALS: BP_SYST 97
[2020-04-03 16:00] VITALS: BP_SYST 94
[2020-04-03 17:42] VITALS: BP_SYST 101
[2020-04-03 20:00] VITALS: BP_SYST 102
[2020-04-03] MEDS: traZODone HCL 50 MG TABLET (DESYREL) PO SCH (22:12)
[2020-04-03] MEDS: TEMAZEPAM 15 MG CAPSULE PO SCH (22:13)
[2020-04-03] MEDS: HYDROCORTISONE 10 MG TABLET (CORTEF) PO SCH (22:13)
[2020-04-03] MEDS: ENOXAPARIN SODIUM 40 MG/0.4 ML SYRINGE SUBCUT SCH (22:27)
[2020-04-03] MEDS ORDERED: QUEtiapine FUMARATE 100 MG TABLET ONE (22:31)
[2020-04-03] MEDS: QUEtiapine FUMARATE 100 MG TABLET PO SCH (22:31)
[2020-04-04] VITALS: BP_SYST 99
[2020-04-04] MEDS: CLINDAMYCIN 600 mg/50mL D5W 50 ML IV SCH ×3 (05:18→17:06)
[2020-04-04 08:00] VITALS: BP_SYST 100
[2020-04-04 08:13] LABS: BASOPHILS % (AUTO) 0.6 % (0.0-2.0); EOSINOPHILS % (AUTO) 0.3 % (0.0-4.0); HEMATOCRIT 32.1 % (36-48); HEMOGLOBIN 10.1 g/dL (12.0-16.0); LYMPHOCYTES # (AUTO) 1.2 K/uL (1.0-5.5); LYMPHOCYTES % (AUTO) 21.1 % (20.5-51.5); MEAN CORPUSCULAR HEMOGLOBIN 24 pg (27-31); MEAN CORPUSCULAR HGB CONC 32 % (32-36); MEAN CORPUSCULAR VOLUME 76 fL (79.0-98.0); MONOCYTES # (AUTO) 0.3 K/uL (0.0-1.0); MONOCYTES % (AUTO) 4.6 % (1.7-9.3); NEUTROPHILS # (AUTO) 4.2 K/uL (1.8-7.7); NEUTROPHILS % (AUTO) 73.4 % (40.0-70.0); PLATELET COUNT (AUTO) 141 K/uL (130-430); RED BLOOD CELL COUNT(AUTO) 4.21 MIL/uL (4.2-6.2); RED CELL DISTRIBUTION WIDTH 24.4 % (9.0-15.0); WHITE BLOOD COUNT (AUTO) 5.8 K/uL (4.8-10.8)
[2020-04-04 08:22] LABS: CALCIUM 7.7 mg/dL (8.4-11.0); CREATININE 0.71 mg/dL (0.55-1.30); POTASSIUM 4.4 mmol/L (3.5-5.1)
[2020-04-04] MEDS: LISINOPRIL 10 MG TABLET (PRINIVIL) PO SCH (08:54)
[2020-04-04] MEDS: buPROPion HCL 150 MG XL TAB PO SCH (08:54)
[2020-04-04] MEDS: methocarbamoL 500 MG TABLET PO SCH ×2 (08:54→22:23)
[2020-04-04] MEDS: DULoxetine HCL 30 MG CAPSULE.DR (CYMBALTA) PO SCH ×2 (08:54→22:23)
[2020-04-04] MEDS: LEVOTHYROXINE SODIUM 0.15 MG TABLET PO SCH (08:54)
[2020-04-04] MEDS: PANTOPRAZOLE SODIUM 40 MG TAB PO SCH (08:55)
[2020-04-04] MEDS: levETIRAcetam 500 MG TABLET PO SCH (08:55)
[2020-04-04] MEDS: clonazePAM 0.5 MG TABLET PO SCH ×3 (08:55→22:23)
[2020-04-04] MEDS: GABAPENTIN 100 MG CAPSULE PO SCH ×3 (08:55→22:23)
[2020-04-04] MEDS: DIGOXIN 0.125 MG TABLET PO SCH (08:55)
[2020-04-04] MEDS: THORAZINE (chlorproMAZINE) 25 MG TAB PO SCH ×2 (09:35→22:23)
[2020-04-04] MEDS ORDERED: DEXTROSE 50% JECT 50 ML DISP.SYRIN ONE (11:31)
[2020-04-04] MEDS ORDERED: DEXTROSE 50% JECT 50 ML DISP.SYRIN IVP ONE (11:45)
[2020-04-04 12:08] VITALS: BP_SYST 94
[2020-04-04] MEDS ORDERED: DEXTROSE 50% JECT 50 ML DISP.SYRIN IVP PRN (12:30)
[2020-04-04] MEDS ORDERED: GLUCOSE (DEXTROSE) ORAL GEL -Adults PO PRN (12:30)
[2020-04-04] MEDS ORDERED: D5W 1,000 ML IV PRN (12:30)
[2020-04-04 16:18] VITALS: BP_SYST 110
[2020-04-04 20:00] VITALS: BP_SYST 137
[2020-04-04] MEDS: QUEtiapine FUMARATE 100 MG TABLET PO SCH (21:00)
[2020-04-04] MEDS: TEMAZEPAM 15 MG CAPSULE PO SCH (22:23)
[2020-04-04] MEDS: traZODone HCL 50 MG TABLET (DESYREL) PO SCH (22:24)
[2020-04-04] MEDS: HYDROCORTISONE 10 MG TABLET (CORTEF) PO SCH (22:24)
[2020-04-04] MEDS: ENOXAPARIN SODIUM 40 MG/0.4 ML SYRINGE SUBCUT SCH (22:28)
[2020-04-05] VITALS: BP_SYST 94
[2020-04-05] MEDS: CLINDAMYCIN 600 mg/50mL D5W 50 ML IV SCH ×5 (00:45→23:27)
[2020-04-05 08:00] VITALS: BP_SYST 116
[2020-04-05] MEDS: methocarbamoL 500 MG TABLET PO SCH ×2 (09:33→22:20)
[2020-04-05] MEDS: clonazePAM 0.5 MG TABLET PO SCH ×3 (09:33→22:20)
[2020-04-05] MEDS: GABAPENTIN 100 MG CAPSULE PO SCH ×3 (09:34→22:19)
[2020-04-05] MEDS: LEVOTHYROXINE SODIUM 0.15 MG TABLET PO SCH (09:34)
[2020-04-05] MEDS: DIGOXIN 0.125 MG TABLET PO SCH (09:34)
[2020-04-05] MEDS: DULoxetine HCL 30 MG CAPSULE.DR (CYMBALTA) PO SCH ×2 (09:34→22:21)
[2020-04-05] MEDS: buPROPion HCL 150 MG XL TAB PO SCH (09:34)
[2020-04-05] MEDS: PANTOPRAZOLE SODIUM 40 MG TAB PO SCH (09:34)
[2020-04-05] MEDS: levETIRAcetam 500 MG TABLET PO SCH (09:34)
[2020-04-05] MEDS: THORAZINE (chlorproMAZINE) 25 MG TAB PO SCH ×2 (09:34→22:20)
[2020-04-05] MEDS: LISINOPRIL 10 MG TABLET (PRINIVIL) PO SCH (09:35)
[2020-04-05 12:13] VITALS: BP_SYST 128
[2020-04-05 16:13] VITALS: BP_SYST 96
[2020-04-05 20:00] VITALS: BP_SYST 120
[2020-04-05] MEDS: ENOXAPARIN SODIUM 40 MG/0.4 ML SYRINGE SUBCUT SCH (21:00)
[2020-04-05] MEDS ORDERED: QUEtiapine FUMARATE 100 MG TABLET ONE (22:18)
[2020-04-05] MEDS: QUEtiapine FUMARATE 100 MG TABLET PO SCH (22:20)
[2020-04-05] MEDS: HYDROCORTISONE 10 MG TABLET (CORTEF) PO SCH (22:21)
[2020-04-05] MEDS: traZODone HCL 50 MG TABLET (DESYREL) PO SCH (22:22)
[2020-04-05] MEDS: TEMAZEPAM 15 MG CAPSULE PO SCH (22:22)
[2020-04-06 01:48] VITALS: BP_SYST 124
[2020-04-06] MEDS: CLINDAMYCIN 600 mg/50mL D5W 50 ML IV SCH ×3 (06:36→17:43)
[2020-04-06 08:00] VITALS: BP_SYST 152
[2020-04-06] MEDS: LEVOTHYROXINE SODIUM 0.15 MG TABLET PO SCH (09:36)
[2020-04-06] MEDS: THORAZINE (chlorproMAZINE) 25 MG TAB PO SCH ×2 (09:36→21:47)
[2020-04-06] MEDS: buPROPion HCL 150 MG XL TAB PO SCH (09:37)
[2020-04-06] MEDS: GABAPENTIN 100 MG CAPSULE PO SCH ×3 (09:37→22:25)
[2020-04-06] MEDS: levETIRAcetam 500 MG TABLET PO SCH (09:37)
[2020-04-06] MEDS: PANTOPRAZOLE SODIUM 40 MG TAB PO SCH (09:37)
[2020-04-06] MEDS: DULoxetine HCL 30 MG CAPSULE.DR (CYMBALTA) PO SCH ×2 (09:38→21:48)
[2020-04-06] MEDS: DIGOXIN 0.125 MG TABLET PO SCH (09:38)
[2020-04-06] MEDS: clonazePAM 0.5 MG TABLET PO SCH ×3 (09:39→21:48)
[2020-04-06] MEDS: methocarbamoL 500 MG TABLET PO SCH ×2 (09:39→21:48)
[2020-04-06] MEDS: LISINOPRIL 10 MG TABLET (PRINIVIL) PO SCH (09:39)
[2020-04-06 11:29] VITALS: BP_SYST 122
[2020-04-06 16:03] VITALS: BP_SYST 120
[2020-04-06 20:00] VITALS: BP_SYST 110
[2020-04-06] MEDS: traZODone HCL 50 MG TABLET (DESYREL) PO SCH (21:47)
[2020-04-06] MEDS: TEMAZEPAM 15 MG CAPSULE PO SCH (21:48)
[2020-04-06] MEDS: ENOXAPARIN SODIUM 40 MG/0.4 ML SYRINGE SUBCUT SCH (21:52)
[2020-04-06] MEDS ORDERED: QUEtiapine FUMARATE 100 MG TABLET ONE (22:24)
[2020-04-06] MEDS: HYDROCORTISONE 10 MG TABLET (CORTEF) PO SCH (22:25)
[2020-04-06] MEDS: QUEtiapine FUMARATE 100 MG TABLET PO SCH (22:25)
[2020-04-07 01:11] VITALS: BP_SYST 96
[2020-04-07] MEDS: CLINDAMYCIN 600 mg/50mL D5W 50 ML IV SCH ×4 (06:36→17:24)
[2020-04-07 08:30] VITALS: BP_SYST 100
[2020-04-07] MEDS: LISINOPRIL 10 MG TABLET (PRINIVIL) PO SCH (09:00)
[2020-04-07] MEDS: levETIRAcetam 500 MG TABLET PO SCH (10:39)
[2020-04-07] MEDS: clonazePAM 0.5 MG TABLET PO SCH ×3 (10:39→22:10)
[2020-04-07] MEDS: THORAZINE (chlorproMAZINE) 25 MG TAB PO SCH ×2 (10:40→22:12)
[2020-04-07] MEDS: buPROPion HCL 150 MG XL TAB PO SCH (10:40)
[2020-04-07] MEDS: methocarbamoL 500 MG TABLET PO SCH ×2 (10:40→22:11)
[2020-04-07] MEDS: DIGOXIN 0.125 MG TABLET PO SCH (10:40)
[2020-04-07] MEDS: DULoxetine HCL 30 MG CAPSULE.DR (CYMBALTA) PO SCH ×2 (10:41→22:11)
[2020-04-07] MEDS: PANTOPRAZOLE SODIUM 40 MG TAB PO SCH (10:41)
[2020-04-07] MEDS: GABAPENTIN 100 MG CAPSULE PO SCH ×3 (10:41→22:11)
[2020-04-07] MEDS: LEVOTHYROXINE SODIUM 0.15 MG TABLET PO SCH (10:42)
[2020-04-07 12:50] VITALS: BP_SYST 94
[2020-04-07 16:00] VITALS: BP_SYST 101
[2020-04-07 20:10] VITALS: BP_SYST 129
[2020-04-07] MEDS: cloNIDine HCL 0.1 MG TABLET PO PRN (21:25)
[2020-04-07] MEDS: TEMAZEPAM 15 MG CAPSULE PO SCH (22:10)
[2020-04-07] MEDS: HYDROCORTISONE 10 MG TABLET (CORTEF) PO SCH (22:11)
[2020-04-07] MEDS: traZODone HCL 50 MG TABLET (DESYREL) PO SCH (22:12)
[2020-04-07] MEDS: ENOXAPARIN SODIUM 40 MG/0.4 ML SYRINGE SUBCUT SCH (22:14)
[2020-04-07] MEDS ORDERED: ONDANSETRON HCL 4 MG/2 ML VIAL IVP ONE (22:30)
[2020-04-07] MEDS ORDERED: QUEtiapine FUMARATE 100 MG TABLET ONE (22:43)
[2020-04-07] MEDS ORDERED: ONDANSETRON HCL 4 MG/2 ML VIAL IVP PRN (22:45)
[2020-04-07] MEDS: QUEtiapine FUMARATE 100 MG TABLET PO SCH (23:07)
[2020-04-08] VITALS: BP_SYST 163
[2020-04-08] MEDS: CLINDAMYCIN 600 mg/50mL D5W 50 ML IV SCH ×4 (01:42→17:49)
[2020-04-08] MEDS: cloNIDine HCL 0.1 MG TABLET PO PRN (06:05)
[2020-04-08 09:41] VITALS: BP_SYST 162
[2020-04-08] MEDS: PANTOPRAZOLE SODIUM 40 MG TAB PO SCH (09:47)
[2020-04-08] MEDS: GABAPENTIN 100 MG CAPSULE PO SCH ×2 (09:47→14:29)
[2020-04-08] MEDS: DULoxetine HCL 30 MG CAPSULE.DR (CYMBALTA) PO SCH (09:47)
[2020-04-08] MEDS: methocarbamoL 500 MG TABLET PO SCH (09:47)
[2020-04-08] MEDS: buPROPion HCL 150 MG XL TAB PO SCH (09:47)
[2020-04-08] MEDS: DIGOXIN 0.125 MG TABLET PO SCH (09:47)
[2020-04-08] MEDS: clonazePAM 0.5 MG TABLET PO SCH ×2 (09:47→14:29)
[2020-04-08] MEDS: LISINOPRIL 10 MG TABLET (PRINIVIL) PO SCH (09:47)
[2020-04-08] MEDS: THORAZINE (chlorproMAZINE) 25 MG TAB PO SCH (09:48)
[2020-04-08] MEDS: LEVOTHYROXINE SODIUM 0.15 MG TABLET PO SCH (09:48)
[2020-04-08] MEDS: levETIRAcetam 500 MG TABLET PO SCH (09:48)
[2020-04-08 11:27] VITALS: BP_SYST 131
[2020-04-08 15:41] VITALS: BP_SYST 107
[2020-04-08 19:00] VITALS: BP_SYST 140
[2020-04-08 20:00] VITALS: BP_SYST 148
== END 2020-04-08 20:55 | DRG 571 ==
LOC: SED 13:16 → SMU 14:40
PROVIDERS: ADMIT Family Medicine; ATTEND Family Medicine
PROC: 02HV33Z Insertion of Infusion Device into Superior Vena Cava, Percutaneous Approach (ICD-10-PCS; 2020-03-31)
PROC: 0JB70ZZ Excision of Back Subcutaneous Tissue and Fascia, Open Approach (ICD-10-PCS; 2020-04-01)
PROC: 2W15X6Z Compression of Back using Pressure Dressing (ICD-10-PCS; principal; 2020-04-01 09:45)
DX: L89.104 Pressure ulcer of unspecified part of back, stage 4 (principal); E27.1 Primary adrenocortical insufficiency; L03.312 Cellulitis of back [any part except buttock and flank]; G40.909 Epilepsy, unspecified, not intractable, without status epilepticus; E03.9 Hypothyroidism, unspecified; E11.9 Type 2 diabetes mellitus without complications; F17.200 Nicotine dependence, unspecified, uncomplicated; Z96.653 Presence of artificial knee joint, bilateral; F31.9 Bipolar disorder, unspecified; Z20.822 Contact with and (suspected) exposure to COVID-19; I99.8 Other disorder of circulatory system; I10 Essential (primary) hypertension; J44.9 Chronic obstructive pulmonary disease, unspecified; Z90.13 Acquired absence of bilateral breasts and nipples; Z88.2 Allergy status to sulfonamides; Z88.0 Allergy status to penicillin; Z88.6 Allergy status to analgesic agent; Z88.8 Allergy status to other drugs, medicaments and biological substances; Z79.1 Long term (current) use of non-steroidal anti-inflammatories (NSAID); Z79.899 Other long term (current) drug therapy
CPT/HCPCS: 36415; 71045; 80048; 81003; 82962; 83605; 85025; 85610-TC; 85730-TC; 86886; 86900; 86901; 87040-TC; 87070; 87070-TC; 87075-TC; 87081; 88304; 93005; 96361; 96374; 96375; J1650; J1815; J2001; J2175; J2250; J2270; J2405; J2543; J3010; J3490; Q0161